=== PATIENT | female | born 1995 | race Caucasian/White ===

== ENCOUNTER 2023-11-25 21:19 | Outpatient (REF) | payer OTHER, SELFPAY | END 2023-11-25 21:20 | disposition home or self-care (01) | LOC: LAB 21:19 | PROVIDERS: Visit Provider Physician Assistant | DX: Z01.419 Encounter for gynecological examination (general) (routine) without abnormal findings (principal) | CPT/HCPCS: G0145 ==

== ENCOUNTER 2023-12-24 11:16 | Outpatient (REF) | payer OTHER, SELFPAY | END 2023-12-24 11:17 | disposition home or self-care (01) | LOC: LAB 11:16 | PROVIDERS: Visit Provider Obstetrics & Gynecology | DX: R87.612 Low grade squamous intraepithelial lesion on cytologic smear of cervix (LGSIL) (principal) | CPT/HCPCS: 88305 ==

== ENCOUNTER 2024-02-27 09:58 | Outpatient (OUT) | payer OTHER, SELFPAY ==
--- OUTSIDE RECORDS SUMMARY | 2024-02-27 10:06 | XMS_ITS | CCD ---
Author Organization [facility] Care Team Providers Care Blending Operator Name Role Phone JOSEFINA BUCKNER Admitting Unavailable JOSEFINA BUCKNER Attending Unavailable DR ENRIQUE CHAN Primary Care Unavailable JOSEFINA BUCKNER Consulting Unavailable JOSEFINA MARQUES Attending Unavailable OMERO VELASQUEZ Attending Unavailable OMERO VELASQUEZ Attending Unavailable Medications Current Medications Medication Drug Class(es) Dates Sig (Normalized) Sig (Original) cefdinir 300 mg oral capsule (1 source) Cephalosporin Antibacterial Start: 12-03-2023 take 300 mg by mouth twice daily Cefdinir Active 300 MG PO Twice daily 24 05December 03, 2023 12:00am Completed/Discontinued Medications Medication Drug Class(es) Dates Sig (Normalized) Sig (Original) penicillin v potassium 500 mg oral tablet (2 sources) Start: 11-22-2023 End: 12-03-2023 take 500 mg by mouth twice daily Penicillin V Potassium Discontinued 500 MG PO Twice daily 24 05November 22, 2023 12:00am December 03, 2023 3:35pm Problems Problem Classification Problem Date Documented Date Episodic/Chronic Immunizations and screening for infectious disease (1 source) Encounter for screening for human papillomavirus (HPV); Translations: [ENC SCREENING HUMAN PAPILLOMAVIRUS] Onset: 11-22-2022 Episodic Other screening for suspected conditions (not mental disorders or infectious disease) (4 sources) Encounter for screening for malignant neoplasm of cervix; Translations: [ENC SCREENING MALIG NEOPLASM CERV] Onset: 11-19-2022 Episodic Other upper respiratory infections (4 sources) Sore throat symptom; Translations: [Acute pharyngitis, unspecified] 11-22-2023 Episodic Results Test Name Value Interpretation Reference Range Facility No Panel InformationOrdered By: Jens Rodriguez on 12-03-2023 Quick Strep (POC) [facility] No Panel InformationOrdered By: Farrah Olivo on 04-19-2024 Quick Strep (POC) [facility] PAP ACOG PANEL 2: 21 to 29on 11-27-2022 . . Normal [facility] Comment on above: Performed By: #### [id number] #### [facility] [address] [place] [address] Dr. Darron Llamas Age Gdln ACOG Testing 22- Normal [facility] Comment on above: Performed By: #### [id number] #### [facility] [address] [place] [address] Dr. Darron Llamas DIAGNOSIS: Comment Normal [facility] Comment on above: Result Comment: NEGA TIVE FOR INTRAEPITHELIAL LESION OR MALIGNANCY. Performed By: #### [id number] #### [facility] [address] [place] [address] Dr. Darron Llamas Methodology: Comment Normal [facility] Comment on above: Result Comment: This liquid based ThinPrep(R) pap test was screened with the use of an image guided system. Performed By: #### [id number] #### [facility] [address] [place] [address] Dr. Darron Llamas Note: Comment [facility] Comment on above: Result Comment: The Pap smear is a screening test designed to aid in the detection of premalignant and malignant conditions of the uterine cervix. It is not a diagnostic procedure and should not be used as the sole means of detecting cervical cancer. Both false-positive and false-negative reports do occur. . Performed By: #### [id number] #### [facility] [address] [place] [address] Dr. Darron Llamas Performed by: Comment Normal [facility] Comment on above: Result Comment: Rei Hernandez Stock Preparation Supervisor (ASCP) Performed By: #### [id number] #### [facility] [address] [place] [address] Dr. Darron Llamas Reflex Criteria: Comment [facility] Comment on above: Result Comment: The HPV DNA reflex criteria were not met with this specimen result therefore, no HPV testing was performed. . Performed By: #### [id number] #### [facility] [address] [address] [address] Darron Llamas Specimen adequacy: Comment Normal [facility] Comment on above: Result Comment: Sati sfactory for evaluation. No endocervical component is identified. Performed By: #### [id number] #### [facility] [address] [place] [address] Dr. Darron Llaams Vital Signs Date Time Vital Sign Value Performing Clinician Faci lity 12-03-2023 15:37-0400 Body height 170.18 cm [facility] 12-03-2023 15:37-0400 Body mass index (BMI) [Ratio] 26.6 kg/m2 [facility] 12-03-2023 15:37-0400 Body temperature 98.3 [degF] [facility] 12-03-2023 15:37-0400 Body weight 77.11 kg [facility] 12-03-2023 15:37-0400 Diastolic blood pressure 86 mm[Hg] [facility] 12-03-2023 15:37-0400 Heart rate 80 /min [facility] 12-03-2023 15:37-0400 SaO2% (BldA) [Mass fraction] 98 % [facility] 12-03-2023 15:37-0400 Systolic blood pressure 131 mm[Hg] [facility] 11-22-2023 09:08-0400 Body height 170.18 cm [facility] 11-22-2023 09:08-0400 Body mass index (BMI) [Ratio] 24.3 kg/m2 [facility] 11-22-2023 09:08-0400 Body temperature 98.4 [degF] [facility] 11-22-2023 09:08-0400 Body weight 70.3 kg [facility] 11-22-2023 09:08-0400 Diastolic blood pressure 85 mm[Hg] [facility] 11-22-2023 09:08-0400 Heart rate 103 /min [facility] 11-22-2023 09:08-0400 SaO2% (BldA) [Mass fraction] 98 % [facility] 11-22-2023 09:08-0400 Systolic blood pressure 132 mm[Hg] [facility] Encounters Encounter Date Encounter Type Care Provider Facility Start: 02-12-2024 End: 02-12-2024 ambulatory OMERO EVA Not Available Start: 12-24-2023 End: 12-24-2023 ambulatory OMERO EVA Not Available Start: 12-03-2023 End: 12-03-2023 ambulatory [facility] Work Phone: Start: 12-03-2023 End: 12-03-2023 Patient encounter procedure [facility] Work Phone: Start: 11-25-2023 End: 11-25-2023 ambulatory JOSEFINA MARQUES Not Available Start: 11-22-2023 End: 11-22-2023 ambulatory [facility] Work Phone: Start: 11-22-2023 End: 11-22-2023 Patient encounter procedure [facility] Work Phone: Start: 11-19-2022 End: 11-19-2022 ambulatory JOSEFINA MARQUES . Facility:[facility]1 Procedures Date Procedure Procedure Detail Performing Clinician Start: 12-03-2023 Quick Strep (POC) Start: 11-22-2023 Quick Strep (POC) Payers Date Payer Category Payer Unknown [id number] 1995 Unknown [id number] 2.16.84 [id number] 1996 Unknown [id number] [id number] [id number] 1996 Unknown [id number] 2.16.84 [id number] 1996 Unknown [id number] 2.16.84 [id number] 1959 Unknown [id number] Social History Date Type Detail Facility [facility] Work Phone: Start: 1995 Sex Assigned At Female F [facility] Evaluation note Note Date & Type Note Facility Evaluation note Diagnosis Onset Date Strep pharyngitis noneactive [facility] Work Phone: Summary Purpose Family History No Family History Records FoundNo Family History Records Found Advance Directives No Advanced Directives Records Found Advance Directive Response Recorded Date/ Time Advance Directives No November 21 9:04am Chief Complaint and Reason for Visit Chief Complaint sore throat, fever Reason for Visit Strep pharyngitis Chief Complaint sore throat, fever sore throat Reason for Visit Strep pharyngitis Additional Source Comments INFORMATION SOURCE (unrecogn ized section and content) DATE CREATED AUTHOR 11/28/2022 [facility] DATE CREATED AUTHOR AUTHOR'S ORGANIZ ATION 02/18/2024 [facility] dical Specialists [facility] Care Teams (unrecognized sec tion and content) Team Status: Active Member Role Status Dates PHYSICIAN NO FAMILY Primary Care Provider Active Team Status: Inactive Member Role Status Dates Farrah Olivo APRN Attending Provider Active Sta rt: November 22, 2023 End: November 22, 2023 PHYSICIAN NO FAMILY Primary Care Provider Active Start: November 22, 2023 End: November 22, 2023 Team Status: Inactive Member Role Status Dates PHYSICIAN NO FAMILY Primary Care Provider Active Start: December 03, 2023 End: December 03, 2023 Jens Rodriguez PA-C Attending Provider Active St art: December 03, 2023 End: December 03, 2023 Goals (unrecognized section and content) Goals may be documented in a n alternate sectionGoals may be documented in an alternate section FOR RECORDS PERTAINING TO PATIENTS WHO ARE OR HAVE BEEN ENROLLED IN A CHEMICAL DEPENDENCY/SUBSTANCEABUSE PROGRAM, SOME INFORMATION MAY BE OMITTED. This clinical summary was aggregated from multiple sources. Caution should be exercised in using it in the provision of clinical care. This summary normalizes information from multiple sources, and as a consequence, information in this document may materially change the coding, format and clinical context of patient data. In addition, data may be omitted in some cases. CLINICAL DECISIONS SHOULD BE BASED ON THE PRIMARY CLINICAL RECORDS. [facility] [employer] [facility]. provides no warranty or guarantee of the accuracy or completeness of information in this document.
== END 2024-02-27 09:59 | disposition home or self-care (01) ==
PROVIDERS: PCP Family Medicine; Visit Provider Obstetrics & Gynecology
DX: Z01.818 Encounter for other preprocedural examination (principal); N87.1 Moderate cervical dysplasia; D06.9 Carcinoma in situ of cervix, unspecified; R87.613 High grade squamous intraepithelial lesion on cytologic smear of cervix (HGSIL)

== ENCOUNTER 2024-03-13 06:18 | Day surgery (SDC) | payer OTHER, SELFPAY ==
[2024-02-27 10:11] VITALS: BP 143/83; PULSE 92; TEMP 36.5; O2SAT 99; BMI 26.8
[2024-03-13] VITALS (8 sets, daily range): BP systolic 107–159; BP diastolic 54–94; PULSE 73–117; TEMP 36.2; O2SAT 97–100; BMI 26.9
--- OUTSIDE RECORDS SUMMARY | 2024-03-13 06:22 | XMS_ITS | CCD ---
Author Organization [facility] Care Team Providers Care Certified Driver Examiner Name Role Phone JOSEFINA BUCKNER Admitting Unavailable [...] Jens Rodriguez on 12-03-2023 Quick Strep (POC) [facility] No Panel InformationOrdered By: Farrah Olivo on 04-19-2024 Quick Strep (POC) [facility] PAP ACOG PANEL 2: 21 to 29on 11-27-2022 . . Normal [facility] Comment on above: Performed By: #### [id number] #### [facility] [address] [place] [address] Dr. Darron Llamas Age Gdln ACOG Testing 22- Normal [facility] Comment on above: Performed By: #### [id number] #### [facility] [address] [place] [address] Dr. Darron Llamas DIAGNOSIS: Comment Normal [facility] Comment on above: Result Comment: NEGA TIVE FOR INTRAEPITHELIAL LESION OR MALIGNANCY. Performed By: #### [id number] #### [facility] [address] [place] [address] Dr. Darron Llamas Methodology: Comment Normal [facility] Comment on above: Result Comment: This liquid based ThinPrep(R) pap test was screened with the use of an image guided system. Performed By: #### [id number] #### [facility] [address] [place] [address] Dr. Darron Llamas Note: Comment [facility] Comment on above: Result Comment: The Pap smear is a screening test designed to aid in the detection of premalignant and malignant conditions of the uterine cervix. It is not a diagnostic procedure and should not be used as the sole means of detecting cervical cancer. Both false-positive and false-negative reports do occur. . Performed By: #### [id number] #### [facility] [address] [place] [address] Dr. Darron Llamas Performed by: Comment Normal [facility] Comment on above: Result Comment: Rei Hernandez Children'S Counselor (ASCP) Performed By: #### [id number] #### [facility] [address] [place] [address] Dr. Darron Llamas Reflex Criteria: Comment [facility] Comment on above: Result Comment: The HPV DNA reflex criteria were not met with this specimen result therefore, no HPV testing was performed. . Performed By: #### [id number] #### [facility] [address] [address] [address] Darron Llamas Specimen adequacy: Comment Normal [facility] Comment on above: Result Comment: Sati sfactory for evaluation. No endocervical component is identified. Performed By: #### [id number] #### [facility] [address] [place] [address] Dr. Darron Llamas Vital Signs Date Time Vital Sign Value Performing Clinician Faci lity 12-03-2023 15:37-0400 Body height 170.18 cm [facility] 12-03-2023 15:37-0400 Body mass index (BMI) [Ratio] 26.6 kg/m2 [facility] 12-03-2023 15:37-0400 Body temperature 98.3 [degF] [facility] 12-03-2023 15:37-0400 Body weight 77.11 kg [facility] 12-03-2023 15:37-0400 Diastolic blood pressure 86 mm[Hg] [facility] 12-03-2023 15:37-0400 Heart rate 80 /min [facility] 12-03-2023 15:37-0400 SaO2% (BldA) [Mass fraction] 98 % [facility] 12-03-2023 15:37-0400 Systolic blood pressure 131 mm[Hg] [facility] 11-22-2023 09:08-0400 Body height 170.18 cm [facility] 11-22-2023 09:08-0400 Body mass index (BMI) [Ratio] 24.3 kg/m2 [facility] 11-22-2023 09:08-0400 Body temperature 98.4 [degF] [facility] 11-22-2023 09:08-0400 Body weight 70.3 kg [facility] 11-22-2023 09:08-0400 Diastolic blood pressure 85 mm[Hg] [facility] 11-22-2023 09:08-0400 Heart rate 103 /min [facility] 11-22-2023 09:08-0400 SaO2% (BldA) [Mass fraction] 98 % [facility] 11-22-2023 09:08-0400 Systolic blood pressure 132 mm[Hg] [facility] Encounters Encounter Date Encounter Type Care Provider Facility Start: 02-12-2024 End: 02-12-2024 ambulatory OMERO EVA Not Available Start: 12-24-2023 End: 12-24-2023 ambulatory OMERO EVA Not Available Start: 12-03-2023 End: 12-03-2023 ambulatory [facility] Work Phone: Start: 12-03-2023 End: 12-03-2023 Patient encounter procedure [facility] Work Phone: Start: 11-25-2023 End: 11-25-2023 ambulatory JOSEFINA MARQUES Not Available Start: 11-22-2023 End: 11-22-2023 ambulatory [facility] Work Phone: Start: 11-22-2023 End: 11-22-2023 Patient encounter procedure [facility] Work Phone: Start: 11-19-2022 End: 11-19-2022 ambulatory JOSEFINA MARQUES . Facility:[facility]1 Procedures Date Procedure Procedure Detail Performing Clinician Start: 12-03-2023 Quick Strep (POC) Start: 11-22-2023 Quick Strep (POC) Payers Date Payer Category Payer Unknown [id number] 1995 Unknown [id number] 2.16.84 [id number] 1996 Unknown [id number] 2.16.84 [id number] 1996 Unknown [id number] 2.16.84 [id number] 1996 Unknown [id number] 2.16.84 [id number] 1959 Unknown [id number] Social History Date Type Detail Facility [facility] Work Phone: Start: 1995 Sex Assigned At Female F [facility] Evaluation note Note Date & Type Note Facility Evaluation note Diagnosis Onset Date Strep pharyngitis noneactive [facility] Work Phone: Summary Purpose Family [...] DATE CREATED AUTHOR AUTHOR'S ORGANIZ ATION 02/18/2024 [facility] dical Specialists [facility] Care Teams (unrecognized sec tion and [...] BE BASED ON THE PRIMARY CLINICAL RECORDS. [facility] [facility]. provides no warranty or guarantee of the accuracy or completeness of information in this document.
[2024-03-13 06:34] LABS: Basophils Percent Auto 0.7 % (0.2-2.0); Eosinophils Percent Auto 0.4 % (0.9-7.0); Hematocrit 40.5 % (36.0-48.0); Hemoglobin 13.2 g/dL (12.0-16.0); Immature Granulocytes Abs Auto 0.01 10^3/uL (0.00-0.03); Immature Granulocytes Pct Auto 0.2 % (0.0-0.5); Lymphocytes Absolute Auto 2.9 10^3/uL (1.2-3.8); Lymphocytes Percent Auto 52.8 % (20.5-60.0); Mean Corpuscular HGB Conc 32.6 g/dL (29.9-35.2); Mean Corpuscular Hemoglobin 29.1 pg (26.7-34.0); Mean Corpuscular Volume 89.4 fL (81.0-99.0); Mean Platelet Volume 9.3 fL (9.5-13.5); Monocytes Absolute Auto 0.8 10^3/uL (0.3-0.8); Monocytes Percent Auto 15.3 % (1.7-12.0); Neutrophils Absolute Auto 1.7 10^3/uL (1.4-6.5); Neutrophils Percent Auto 30.6 % (43.0-75.0); Platelet Count 335 10^3/uL (150-450); Red Blood Count 4.53 10^6/uL (4.20-5.40); Red Cell Distribution Width 12.3 % (11.0-15.0); White Blood Count 5.4 10^3/uL (4.0-11.0)
[2024-03-13 07:02] LABS: HCG Quantitative <1 mIU/mL
--- NOTE | 2024-03-13 07:10 | PC.NURSE ---
2 IV attempts per sheet writer
[2024-03-13] MEDS: LACTATED RINGER'S SOLUTION 1,000 ML 50 ML IV (07:13)
[2024-03-13] MEDS: FAMOTIDINE/PF 20 MG/2 ML VIAL IV (07:35)
[2024-03-13] MEDS: SCOPOLAMINE 1 MG/3 DAYS TRANSDERM PATCH 1 PATCH TD (07:35)
[2024-03-13] MEDS: IODINE/POTASSIUM IODIDE 8 ML SOLUTION TOPICAL (08:05)
[2024-03-13] MEDS: FERRIC SUBSULFATE 8 ML SOLUTION TOPICAL (08:05)
--- NOTE | 2024-03-13 08:23 | PM.ONB ---
Brief Operative Note Date of procedure: 03/13/24 Pre-op diagnosis general: cervical dysplasia Post-op diagnosis: same as pre-op Procedure: NAME OF PROCEDURE: [leep ] PROCEDURE: Patient was taken back to the Operating Room where she was given general anesthesia without difficulty. She was then placed in the dorsal lithotomy position. She was then prepped and draped in the normal sterile fashion. A weighted speculum was placed into the patient's vagina. The anterior lip of the cervix was identified and grasped with a single-tooth tenaculum. The patient's cervix was then copiously irrigated using vinegar.? Then, a Lugol Solution was also placed onto the patient's cervix which demonstrated increased uptake of the Lugol solution at the [3? ] o?clock and [? 7] o?clock positions.? At that time, the LEEP portion of the procedure was performed, including both the [? ] o?clock and [? ] o?clock positions. The ectocervix was sent out to Pathology. The patient's cervix was then coagulated using suction cautery. Excellent hemostasis was assured.? Monsel Solution was then placed onto the patient's cervix to help maintain adequate hemostasis. All instruments were removed from the patient's vagina. The anterior lip of the cervix demonstrated excellent hemostasis.? The patient tolerated the procedure well. Sponge, lap, and needle counts were correct x 2. The patient was taken to Recovery Room in stable condition. Anesthesia: MAC Surgeon: Ha Melchor Estimated blood loss (mL): 5 Pathology: other (ectocervical tissue) Condition: stable Disposition: PACU Urinary Catheter Management Urinary Catheter Management Urethral: Cath placed during this visit: no
== END 2024-03-13 09:19 | disposition home or self-care (01) ==
PROVIDERS: PCP Family Medicine; Visit Provider Obstetrics & Gynecology
PROC: (CPT 940; principal; 2024-03-13 07:30)
DX: R87.613 High grade squamous intraepithelial lesion on cytologic smear of cervix (HGSIL) (principal); G47.33 Obstructive sleep apnea (adult) (pediatric)
CPT/HCPCS: 57522; 36415; 84702; 85025; 88307; 88341; 88342; J2250; J2704; J3010

== ENCOUNTER 2024-07-16 20:08 | Outpatient (REF) | payer OTHER, SELFPAY | END 2024-07-16 20:09 | disposition home or self-care (01) | LOC: LAB 20:08 | PROVIDERS: PCP Family Medicine; Visit Provider Physician Assistant | DX: R87.612 Low grade squamous intraepithelial lesion on cytologic smear of cervix (LGSIL) (principal); Z12.4 Encounter for screening for malignant neoplasm of cervix | CPT/HCPCS: 88175 ==

== ENCOUNTER 2024-11-30 12:03 | Outpatient (REF) | payer OTHER, SELFPAY ==
[2024-12-02 13:08] LABS: Age Gdln ACOG Testing Note (.); IGP, rfx Aptima HPV ASCU Note (.)
== END 2024-11-30 12:04 | disposition home or self-care (01) ==
LOC: LAB 12:03
PROVIDERS: PCP Family Medicine; Visit Provider Nurse Practitioner Family
DX: Z01.42 Encounter for cervical smear to confirm findings of recent normal smear following initial abnormal smear (principal); R87.619 Unspecified abnormal cytological findings in specimens from cervix uteri
CPT/HCPCS: 88175

== ENCOUNTER 2025-03-01 14:28 | Outpatient (OUT) | payer OTHER, SELFPAY ==
--- OUTSIDE RECORDS SUMMARY | 2025-03-01 13:20 | XMS_ITS | Encounter Summary ---
Author Organization [facility] Address [address] [place] [address] Care Team Providers Care Entry Level Sales Representative Name Role Phone Shaun Florez MD Primary Care Provider [phone] Reason for Visit * Reason Comments Routine Visit Encounter Details Date Type Department Care Team (Late st Contact Info) Description 03/01/2025 1:20 PM EDT Routine [facility] [place] [facility] [address] [place] [phone] Ha Melchor DO [address] [place], [place] [id number] Nausea and vomiting in ([facility]) (Primary Dx); 11 weeks gestation of ([facility]); First trimester ([facility]); H/O LEEP Social History Tobacco Use Types Packs/Day Years Used Date Smoking Tobacco: Never Assessed Estimated Date of Delivery Comme nts Yes 09/17/2025 Based on Ultraso und Sex and Gender Information Value Date Recorded Sex Assigned at Female 11/20/2023 10:16 AM EDT Legal Sex Female 8:01 PM EDT Gender Identity Not on file Sexual Orientation Not on file documented as of this encounter Last Filed Vital Signs Vital Sign Reading Time Taken Comments Blood Pressure 122/78 03/01/2025 1:26 PM EDT Pulse - - Temperature - - Respiratory Rate - - Oxygen Saturation - - Inhaled Oxygen Concentration - - Weight 77.1 kg (170 lb) 03/01/2025 1:26 PM EDT Height - - Body Mass Index 26.63 12/24/2023 2:50 PM EDT documented in this encounter Plan of Treatment Upcoming Encounters Date Type Department Care Team (Late st Contact Info) Description 03/16/2025 1:30 PM EDT Ancillary Procedure [facility] [place] [address] 03/29/2025 1:40 PM EDT Routine [facility] [place] [address] Ha Melchor, DO [address] [place] [address] 04/06/2025 8:00 AM EDT Ancillary Procedure [facility] [place] [phone] 12/06/2025 11:00 AM EDT Office Visit [facility] [place] [phone] Ha Meclhor, DO [address] [place] [address] Scheduled Orders Name Type Priority Associated Diagnoses Order Schedule POCT urinalysis dipstick manually resulted Point of Care Testing Routine 11 weeks gestation of ([facility]) Ordered: 03/01/2025 OB transvaginal Imaging Routine H/O LEEP 13 weeks, 16 weeks for 2 Occurrences starting 03/01/2025 until 06/01/2025 documented as of this encounter Visit Diagnoses Diagnosis Nausea and vomiting in ([facility])- Primary Unspecified vomiting of , unspecified as to episode of care 11 weeks gestation of ([facility]) First trimester ([facility]) state, incidental H/O LEEP documented in this encounter Care Teams Entry Level Sales Representative Relationship Specialty Start Date End Date Shaun Florez MD [address] [place] [address] PCP - General Family Medicine 11/25/23 documented as of this encounter
--- OUTSIDE RECORDS SUMMARY | 2025-03-01 14:31 | XMS_ITS | Encounter Summary ---
Author Organization [facility] Address [address] [place] [address] Care Team Providers Care Ergonomic Specialist Name Role Phone Shaun Florez MD Primary Care Provider [phone] Encounter Details Date Type Department Care Team (Late st Contact Info) Description 03/26/2024 Abstract [facility] [place] [address] Ha Melchor DO [address], [place] [address] Social History Tobacco Use Types Packs/Day Years Used Date Smoking Tobacco: Never Assessed Comments Unknown Sex and Gender Information Value Date Recorded Sex Assigned at Female 11/20/2023 10:16 AM EDT Legal Sex Female 8:01 PM EDT Gender Identity Not on file Sexual Orientation Not on file documented as of this encounter Plan of Treatment Upcoming Encounters Date Type Department Care Team (Late st Contact Info) Description 03/16/2025 1:30 PM EDT Ancillary Procedure [facility] [place] [address] 03/29/2025 1:40 PM EDT Routine [facility] [place] [address] Ha Melchor DO [address] [place], [place] [phone] 04/06/2025 8:00 AM EDT Ancillary Procedure [facility] [address] [place] [address] 12/06/2025 11:00 AM EDT Office Visit [facility] [address] [place] [phone] Ha Melchor DO [address] [place], [place] [phone] documented as of this encounter Visit Diagnoses Not on filedocumented in this encounter Care Teams Ergonomic Specialist Relationship Specialty Start Date End Date Shaun Florez MD [address] [facility] [place] [phone] PCP - General Family Medicine 11/25/23 documented as of this encounter
--- OUTSIDE RECORDS SUMMARY | 2025-03-01 14:31 | XMS_ITS | Encounter Summary ---
Author Organization [facility] Address [address] [facility] [place] [address] Care Team Providers Care Machining Engineer Name Role Phone Shaun Florez MD Primary Care Provider [phone] Encounter Details Date Type Department Care Team (Late st Contact Info) Description 03/26/2024 Abstract ANGY STEWART [facility] [place] [address] Ha Melchor DO [address], [place] [address] Social History Tobacco Use Types Packs/Day Years [...] 1:30 PM EDT Ancillary Procedure ANGY STEWART [facility] [place] [address] 03/29/2025 1:40 PM EDT Routine ANGY STEWART [facility] [place] [address] Ha Melchor DO [address], [place] [address] 04/06/2025 8:00 AM EDT Ancillary Procedure [facility] [address] [facility] [place] [address] 12/06/2025 11:00 AM EDT Office Visit [facility] [address] [facility] [place] [address] Ha Melchor DO [address] [facility] [address] [place], [place] [id number] documented as of this encounter Visit Diagnoses Not on filedocumented in this encounter Care Teams Machining Engineer Relationship Specialty Start Date End Date Shaun Florez MD [address] [facility] [place] [address] PCP - General Family Medicine 11/25/23 documented as of this encounter
--- OUTSIDE RECORDS SUMMARY | 2025-03-01 14:31 | XMS_ITS | Encounter Summary ---
Author Organization [facility] Address [address] [facility] [address] Care Team Providers Care Hand Candle Molder Name Role Phone Shaun Florez MD Primary Care Provider [phone] Encounter Details Date Type Department Care Team (Late st Contact Info) Description 12/09/2024 Orders Only [facility]GY [facility] [address] [facility] [place] [address] Tracy Silva LPN [address] [employer] [address] [place] [address] Social History Tobacco Use Types Packs/Day Years [...] 1:30 PM EDT Ancillary Procedure ANGY STEWART [address] [place] [address] 03/29/2025 1:40 PM EDT Routine ANGY STEWART [address] [facility] [place] [address] Ha Melchor DO [address] [facility] [address] [place], [place] [address] 04/06/2025 8:00 AM EDT Ancillary Procedure [facility] [address] [facility] [place] [address] 12/06/2025 11:00 AM EDT Office Visit [facility] [address] [facility] [place] [address] Ha Melchor DO [address] [facility] [address] [place], [place] [address] documented as of this encounter Procedures Procedure Name Priority Date/Time Associated Diagnosis Comments PAP SMEAR Routine 11/30/2024 12:00 AM EDT documented in this encounter Results * Pap Smear (11/30/2024 12:00 AM EDT) Swab Cervical swab / Unknown Ruiz Nurse [facility]oms Bcp Ob LAB CYTOLOGY ORDERABLES Final Result Performing Organization Address City/State/[facility] Co de Phone Number EXTERNAL LAB documented in this encounter Visit Diagnoses Not on filedocumented in this encounter Care Teams Hand Candle Molder Relationship Specialty Start Date End Date Shaun Florez MD [address] [facility] [place] [address] PCP - General Family Medicine 11/25/23 documented as of this encounter
--- OUTSIDE RECORDS SUMMARY | 2025-03-01 14:31 | XMS_ITS | Encounter Summary ---
Author Organization [facility] Address [address] [place] [address] Care Team Providers Care Campaign Advisor Name Role Phone Shaun Florez MD Primary Care Provider [phone] Encounter Details Date Type Department Care Team (Late st Contact Info) Description 07/31/2024 Orders Only ANGY STEWART [address] [place] [address] [place], [place] [address] [place] [address] Social History Tobacco Use Types Packs/Day Years [...] PM EDT Ancillary Procedure ANGY STEWART [address] [place] [phone] 03/29/2025 1:40 PM EDT Routine ANGY STEWART [address] [place] [address] Ha Melchor DO [address] [place], [place] [address] 04/06/2025 8:00 AM EDT Ancillary Procedure [facility] [address] [facility] [place] [address] 12/06/2025 11:00 AM EDT Office Visit [facility] [address] [facility] [place] [address] Ha Melchor DO [address] [facility] [place] [address] documented as of this encounter Procedures Procedure Name Priority Date/Time Associated Diagnosis Comments PAP SMEAR Routine 07/16/2024 12:00 AM EST documented in this encounter Results * Pap Smear (07/16/2024 12:00 AM EST) Swab Cervical swab / Unknown us Cindy VALLE[facility] LAB CYTOLOGY ORDERABLES Final Re sult EXTERNAL LAB documented in this encounter Visit Diagnoses Not on filedocumented in this encounter Care Teams Campaign Advisor Relationship Specialty Start Date End Date Shaun Florez MD [address] [facility] [place] [address] PCP - General Family Medicine 11/25/23 documented as of this encounter
--- OUTSIDE RECORDS SUMMARY | 2025-03-01 14:31 | XMS_ITS | Encounter Summary ---
Author Organization [facility] Address [address] [facility] [place] [address] Care Team Providers Care Simulation Analyst Name Role Phone Shaun Florez MD Primary Care Provider [phone] Encounter Details Date Type Department Care Team (Late st Contact Info) Description 03/31/2024 Abstract ANGY STEWART [facility] [place] [address] Ha Melchor DO [address], [place] [address] Social History Tobacco Use Types Packs/Day Years [...] 1:30 PM EDT Ancillary Procedure ANGY STEWART [facility] [place] [address] 03/29/2025 1:40 PM EDT Routine ANGY STEWART [facility] [place] [address] Ha Melchor DO [address] [place], [place] [address] 04/06/2025 8:00 AM EDT Ancillary Procedure [facility] [address] [facility] [place] [address] 12/06/2025 11:00 AM EDT Office Visit [facility] [address] [facility] [place] [address] Ha Melchor DO [address] [facility] [address] [place], [place] [address] documented as of this encounter Visit Diagnoses Not on filedocumented in this encounter Care Teams Simulation Analyst Relationship Specialty Start Date End Date Shaun Florez MD [address] [facility] [place] [address] PCP - General Family Medicine 11/25/23 documented as of this encounter
--- OUTSIDE RECORDS SUMMARY | 2025-03-01 14:31 | XMS_ITS | Encounter Summary ---
Author Organization [facility] Address [address] [place] [facility] [place] [address] Care Team Providers Care Direct Service Worker Name Role Phone Shaun Florez MD Primary Care Provider [phone] Encounter Details Date Type Department Care Team (Late st Contact Info) Description 03/23/2024 Abstract ANGY STEWART [facility] [place] [address] Ha Melchor DO [address], [place] [address] Social History Tobacco Use Types Packs/Day Years [...] 1:30 PM EDT Ancillary Procedure ANGY STEWART [facility] [place] [address] 03/29/2025 1:40 PM EDT Routine ANGY STEWART [facility] [place] [address] Ha Melchor DO [address] [place], [place] [address] 04/06/2025 8:00 AM EDT Ancillary Procedure [facility] [address] [facility] [place] [address] 12/06/2025 11:00 AM EDT Office Visit [facility] [address] [facility] [place] [address] Ha Melchor DO [address] [facility] [address] [place] [place], [place] [address] documented as of this encounter Visit Diagnoses Not on filedocumented in this encounter Care Teams Direct Service Worker Relationship Specialty Start Date End Date Shaun Florez MD [address] [facility] [place] [address] PCP - General Family Medicine 11/25/23 documented as of this encounter
--- OUTSIDE RECORDS SUMMARY | 2025-03-01 14:31 | XMS_ITS | Encounter Summary ---
Author Organization [facility] Address [address] [facility] [place] [address] Care Team Providers Care Four Corner Former Machine Operator Name Role Phone Shaun Florez MD Primary Care Provider [phone] Encounter Details Date Type Department Care Team (Late st Contact Info) Description 03/01/2025 Bamboo flowsheet ANGY STEWART [address] [facility] [place] [address] Ha Melchor DO [address], [place] [address] Social History Tobacco Use Types Packs/Day Years [...] Ancillary Procedure ANGY STEWART [address] [place] [address] 03/29/2025 1:40 PM EDT Routine ANGY STEWART [address] [place] [address] Ha Melchor DO [address] [place] [address] 04/06/2025 8:00 AM EDT Ancillary Procedure [facility] Mario STEWART [address] [place] [place] [address] 12/06/2025 11:00 AM EDT Office Visit [facility]OMS Mario STEWART [address] [place] [address] Ha Melchor DO [address] [facility] [place] [address] documented as of this encounter Visit Diagnoses Not on filedocumented in this encounter Care Teams Four Corner Former Machine Operator Relationship Specialty Start Date End Date Shaun Florez MD [address] [place] [facility] [place] [address] PCP - General Family Medicine 11/25/23 documented as of this encounter
--- OUTSIDE RECORDS SUMMARY | 2025-03-01 14:31 | XMS_ITS | Encounter Summary ---
Author Organization [facility] Address [address] [facility] [place] [address] Care Team Providers Care Sizing Machine Operator Name Role Phone Shaun Florez MD Primary Care Provider [phone] Encounter Details Date Type Department Care Team (Late st Contact Info) Description 03/31/2024 Abstract ANGY STEWART [facility] [place] [address] Ha Melchor DO [address], [place] [address] Social History Tobacco Use Types Packs/Day Years [...] 1:30 PM EDT Ancillary Procedure ANGY STEWART [facility] [place] [address] 03/29/2025 1:40 PM EDT Routine ANGY STEWART [facility] [place] [address] Ha Melchor DO [address] [place], [place] [address] 04/06/2025 8:00 AM EDT Ancillary Procedure [facility] [address] [facility] [place] [address] 12/06/2025 11:00 AM EDT Office Visit [facility] O[facility] [address] [facility] [place] [address] Ha Melchor DO [address] [facility] [address] [place], [place] [address] documented as of this encounter Visit Diagnoses Not on filedocumented in this encounter Care Teams Sizing Machine Operator Relationship Specialty Start Date End Date Shaun Florez MD [address] [facility] [place] [address] PCP - General Family Medicine 11/25/23 documented as of this encounter
--- OUTSIDE RECORDS SUMMARY | 2025-03-01 14:31 | XMS_ITS | Encounter Summary ---
Author Organization [facility] Address [address] [facility] [place] [address] Care Team Providers Care Physical Metallurgist Name Role Phone Shaun Florez MD Primary Care Provider [phone] Encounter Details Date Type Department Care Team (Late st Contact Info) Description 03/26/2024 Abstract ANGY STEWART [facility] [place] [address] Ha Melchor DO [address] [place], [place] [address] Social History Tobacco Use Types Packs/Day Years [...] 1:30 PM EDT Ancillary Procedure ANGY STEWART [facility] [place] [address] 03/29/2025 1:40 PM EDT Routine ANGY STEWART [facility] [place] [address] Ha Melchor DO [address] [place], [place] [address] 04/06/2025 8:00 AM EDT Ancillary Procedure [facility] [address] [facility] [place] [address] 12/06/2025 11:00 AM EDT Office Visit [facility] O[facility] [address] [facility] [place] [address] Ha Melchor DO [address] [facility] [address] [place], [place] [address] documented as of this encounter Visit Diagnoses Not on filedocumented in this encounter Care Teams Physical Metallurgist Relationship Specialty Start Date End Date Shaun Florez MD [address] [facility] [place] [address] PCP - General Family Medicine 11/25/23 documented as of this encounter
--- OUTSIDE RECORDS SUMMARY | 2025-03-01 14:31 | XMS_ITS | Encounter Summary ---
Author Organization [facility] Address [address] [facility] [place] [address] Care Team Providers Care Computer Operations Analyst Name Role Phone Shaun Florez MD Primary Care Provider [phone] Encounter Details Date Type Department Care Team (Late st Contact Info) Description 01/01/2024 Abstract ANGY STEWART [facility] [place] [address] Ha Melchor, DO [address], [place] [address] Social History Tobacco Use Types Packs/Day Years [...] 1:30 PM EDT Ancillary Procedure ANGY STEWART [facility] [place] [address] 03/29/2025 1:40 PM EDT Routine ANGY STEWART [facility] [place] [address] Ha Melchor DO [address] [place], [place] [address] 04/06/2025 8:00 AM EDT Ancillary Procedure [facility] [address] [facility] [place] [address] 12/06/2025 11:00 AM EDT Office Visit [facility] Mario OBGYN [address] [facility] [place] [address] Ha Melchor DO [address] [facility] [address] [place], [place] [address] documented as of this encounter Visit Diagnoses Not on filedocumented in this encounter Care Teams Computer Operations Analyst Relationship Specialty Start Date End Date Shaun Florez MD [address] [facility] [place] [address] PCP - General Family Medicine 11/25/23 documented as of this encounter
--- OUTSIDE RECORDS SUMMARY | 2025-03-01 14:31 | XMS_ITS | Clinical Summary ---
Author Organization [facility] Address [address] [facility] [place] [address] Care Team Providers Care Solid Waste Division Supervisor Name Role Phone Shaun Florez MD Primary Care Provider [phone] Allergies No known active allergies Medications MV-Min-Fe Fum-FA-DHA ( 1 PO) Take by mouth Active ondansetron (Zofran) 4 MG tabletIndicatio ns:Nausea and vomiting in ([facility]) Take 1 tablet (4 mg) by mouth every 6 (six) hours if needed for nausea or vomiting for up to 30 doses Take 1 tablet by mouth every 6 hours as needed for nausea. 30 tablet 03/01/2025 Active Encounters Date Type Department Care Team Description 03/01/2025 1:20 [place] [address] Ha Melchor DO Nausea and vomiting in ([facility]) (Primary Dx); 11 weeks gestation of ([facility]); First trimester ([facility]); H/O LEEP 03/01/2025 [place] [address] Ha Melchor DO 02/11/2025 11:00 AM [place] [address] Abnormal yolk sac during first trimester, single or unspecified fetus ([facility]) 01/28/2025 1:00 PM EDT Initial [facility] Mario [facility] [address] GA: [id number] 01/28/2025 12:30 PM EDT Ancillary Procedure [facility] Mario [facility] [address] Missed menses 12/09/2024 Orders Only NOMS Mario [place] [address] Tracy Silva LPN 11/30/2024 9:00 AM ED[place] [address] Kassi Mishra NP LGSIL of cervix of undetermined significance; HGSIL (high grade squamous intraepithelial lesion) on Pap smear of cervix 11/30/2024 Clinisync Result Encounter NOMS External Department Unsolicited Kassi Mishra NP 11/30/2024 Bamboo flowsheet NOMS Mario STEWART [address] [place] [address] [place] [address] Kassi Mishra NP from Last 3 Months Social History Tobacco Use Types Packs/Day Years Used Date Smoking Tobacco: Never Assessed Estimated Date of Delivery Comme nts Yes 09/17/2025 Based on Ultraso und Sex and Gender Information Value Date Recorded Sex Assigned at Female 11/20/2023 10:16 AM EDT Legal Sex Female 8:01 PM EDT Gender Identity Not on file Sexual Orientation Not on file Last Filed Vital Signs Vital Sign Reading Time Taken Comments Blood Pressure 122/78 03/01/2025 1:26 PM EDT Pulse - - Temperature - - Respiratory Rate - - Oxygen Saturation - - Inhaled Oxygen Concentration - - Weight 77.1 kg (170 lb) 03/01/2025 1:26 PM EDT Height 170.2 cm (5' 7 ) 12/24/2023 2:50 PM EDT Body Mass Index 26.63 12/24/2023 2:50 PM EDT Plan of Treatment Upcoming Encounters Date Type Department Care Team (Late st Contact Info) Description 03/16/2025 1:30 PM EDT Ancillary Procedure ANGY STEWART [address] [place], [place] [address] [address] 03/29/2025 1:40 PM EDT Routine NOM[facility] STEWART [address] [place], [place] [address] [address] Ha Melchor, DO [address] [place] [address] 04/06/2025 8:00 AM EDT Ancillary Procedure ANGY STEWART [facility] [place] [address] 12/06/2025 11:00 AM EDT Office Visit ANGY STEWART [facility] [place] [address] Ha Melchor, DO [address] [place] [address] Procedures Procedure Name Priority Date/Time Associated Diagnosis Comments OB TRANSVAGINAL Routine 02/11/2025 11 :34 AM EDT Abnormal yolk sac during first trimester, single or unspecified fetus ([facility]) POCT , URINE Routine 01/28/2025 1:45 PM EDT Missed menses POCT URINALYSIS DIPSTICK Routine 01/28/2025 1:43 PM EDT Missed menses OB TRANSVAGINAL Routine 01/28/2025 1: 16 PM EDT Missed menses POCT URINALYSIS DIPSTICK Routine 11/30/2024 9:29 AM EDT LGSIL of cervix of undetermined significance HGSIL (high grade squamous intraepithelial lesion) on Pap smear of cervix POCT , URINE Routine 11/30/2024 9:29 AM EDT LGSIL of cervix of undetermined significance HGSIL (high grade squamous intraepithelial lesion) on Pap smear of cervix IGP,APTIMA HPV,AGE GDLN Routine 11/30/2024 9:16 AM EDT PAP SMEAR Routine 11/30/2024 12:00 AM EDT from Last 3 Months Results * US OB transvaginal (02/11/2025 11:34 AM EDT) Only the most recent of2 resultswithin the time period is included. Anatomical Region Laterality Modality Body Ultrasound 02/11/2025 2:45 PM EDT Impressions 02/11/2025 3:11 PM EDT Findings consistent with a live intrauterine gestation, current sonographic age of 8 weeks and 5 days resulting in an estimated date of delivery of September 18, 2025. TRANSCRIBED BY: ELECTRONICALLY SIGNED BY: Luca Kaur MD Narrative 02/11/2025 3:11 PM EDT FINDINGS: Comparison January 28, 2025. A single intrauterine gestational sac is present. No subchorionic hemorrhage. A single pole is present. Normal heart rate at 187 beats per minute. Yolk sac also is seen. Current sonographic age is 8 weeks and 5 days based on the crown-rump length measurement of 2.1 cm (8 weeks and 5 days) and gestational sac measurement 3.9 cm (9 weeks and 1 day). Based on this age, current estimated date of delivery is September 18, 2025. No pelvic fluid or adnexal mass present. Cervix is closed. Procedure Note Luca Kaur MD - 02/11/2025 FINDINGS: Comparison January 28, 2025. A single intrauterine gestational sac is present. No subchorionichemorrhage. A single pole is present. Normal heart rate at187 beats per minute. Yolk sac also is seen. Current sonographic age is8 weeks and 5 days based on the crown-rump length measurement of 2.1 cm (8weeks and 5 days) and gestational sac measurement 3.9 cm (9 weeks and 1day). Based on this age, current estimated date of delivery is 2025. No pelvic fluid or adnexal mass present. Cervix is closed. IMPRESSION: Findings consistent with a live intrauterine gestation, currentsonographic age of 8 weeks and 5 days resulting in an estimated date ofdelivery of September 18, 2025. TRANSCRIBED BY: ELECTRONICALLY SIGNED BY: Luca Kaur MD us Ha Ruiz DO IMG OB US PROCEDURES Final Resul t * (ABNORMAL) POCT , urine manually resulted (01/28/2025 1:45 PM EDT) Only the most recent of2 resultswithin the time period is included. Preg Test, Ur Positive Negative Urine 01/28/2025 1:45 PM EDT us Ha Ruiz DO POINT OF CARE TEST ENTER/EDIT OR DERABLES Final Result * (ABNORMAL) POCT urinalysis dipstick manually resulted (01/28/2025 1:43 PM EDT) Only the most recent of2 resultswithin the time period is included. Color, UA Yellow Clarity, UA Clear Glucose, UA Negative Negative - 2000(110) ++++ mg/dL Bilirubin, UA Negative Negative - 4(70) +++ mg/dL Ketones, UA Negative Negative - 160(16) ++++ mg/dL Spec Grav, UA 1.015 1 - 1.03 Blood, UA Negative Negative - 50 Onel/mcL pH, UA 6.5 5 - 9 Protein, UA Negative Negative - 2000(20) ++++ mg/dL Urobilinogen, UA 0.2 0.2 - 12 mg/dL Leukocytes, UA Positive Negative - 500+++ Virgen/mcL Comment:small Nitrite, UA Negative Negative - Positive Urine 01/28/2025 1:43 PM EDT us Ha Ruiz DO POINT OF CARE TEST ENTER/EDIT OR DERABLES Final Result * IGP,APTIMA HPV,AGE GDLN (11/30/2024 9:16 AM EDT) AGE GDLN AC TESTING Note . [facility] Comment: TESTS RESULT FLAG UNITS REF RANGE LAB Clinician Provided Cytology Information Source.............Cervix;Endocervix No. of containers..01 ThinPrep Vial Age Tr AC Xochilt... FLAG LEGEND: L-Low Normal,H-High Normal,LL-Alert Low,HH-Alert High <-Panic Low,>-Panic High,A-Abnormal,AA-Critical Abnormal Performed at: 01 [facility] [address] [place] [address] Miriam Contreras MD, IGP, RFX APTIMA HPV ASCU Note . [facility] Comment: TESTS RESULT FLAG UNITS REF RANGE LAB DIAGNOSIS: 02 NEGATIVE FOR INTRAEPITHELIAL LESION OR MALIGNANCY. Specimen adequacy: 02 Satisfactory for evaluation. Endocervical and/or squamous metaplastic cells (endocervical component) are present. Performed by: 02 Yeimy Cottrell, Invoice Coder ([facility]) . 02 Note: Note 02 The Pap smear is a screening test designed to aid in the detection of premalignant and malignant conditions of the uterine cervix. It is not a diagnostic procedure and should not be used as the sole means of detecting cervical cancer. Both false-positive and false-negative reports do occur. Test Methodology: Note 02 This liquid based ThinPrep(R) pap test was screened with the use of an image guided system. . 02 The HPV DNA reflex criteria were not met with this specimen result therefore, no HPV testing was performed. FLAG LEGEND: L-Low Normal,H-High Normal,LL-Alert Low,HH-Alert High <-Panic Low,>-Panic High,A-Abnormal,AA-Critical Abnormal Performed at: [address] [address] Miriam Contreras MD, Performed at: =G - [facility] [address] [id number] Manager Social Responsibility: Miriam Contreras MD, Phone: [phone] Performed at: [facility] [address] [id number] Manager Social Responsibility: Miriam Contreras MD, Phone: [phone] 11/30/2024 9:16 AM EDT 11/30/2024 12:06 PM EDT Narrative [facility] - 12/02/2024 1:08 PM EDT BRUSH-SPATULA CERVIX ENDOCERVIX Kassi Mishra NP LAB BLOOD ORDERABLES Final Re sult [facility] * Pap Smear (11/30/2024 12:00 AM EDT) Swab Cervical swab / Unknown Ruiz Nurse Noms Bcp Ob LAB CYTOLOGY ORDERABLES Final Result EXTERNAL LAB from Last 3 Months Insurance [employer] Member Subscriber Plan / Payer (Ef fective 2023-Present) Name:Mervat Mendez Relation to Subscriber:Self Name:Mervat Mendez Payer ID:Not on file Type:Not on file Address: [place] [phone] [employer] Member Subscriber Plan / Payer (Ef fective 2023-Present) Name:Mervat Mendez Relation to Subscriber:Spouse Name:[id number] Date of :1995 (Home) Address: [address] [place] [address] Payer ID:Not on file Type:Not on file Address: [address] [place] [phone] Care Teams Solid Waste Division Supervisor Relationship Specialty Start Date End Date Shaun Florez MD [address] [place] [address] PCP - General Family Medicine 11/25/23
[2025-03-01 15:13] LABS: Cannabinoid Screen Urine NEGATIVE (NEGATIVE); Methamphetamines Screen Urine NEGATIVE (NEGATIVE); Tricyclic Antidepressant Urine NEGATIVE (NEGATIVE)
[2025-03-01 15:13] LABS: Hematocrit 40.9 % (36.0-48.0); Hemoglobin 14.1 g/dL (12.0-16.0); Immature Granulocytes Abs Auto 0.04 10^3/uL (0.00-0.03); Immature Granulocytes Pct Auto 0.4 % (0.0-0.5); Lymphocytes Absolute Auto 1.9 10^3/uL (1.2-3.8); Mean Corpuscular HGB Conc 34.5 g/dL (29.9-35.2); Mean Corpuscular Hemoglobin 30.4 pg (26.7-34.0); Mean Corpuscular Volume 88.1 fL (81.0-99.0); Platelet Count 346 10^3/uL (150-450); Red Blood Count 4.64 10^6/uL (4.20-5.40); White Blood Count 10.1 10^3/uL (4.0-11.0)
--- OUTSIDE RECORDS SUMMARY | 2025-03-01 17:43 | XMS_ITS | CCD ---
Author Organization [facility] Care Team Providers Care Digital Computer Systems Analyst Name Role Phone CINDY BUCKNER Admitting Unavailable CINDY BUCKNER Attending Unavailable HARMAN ., DR NUNEZ Primary Care Unavailable CINDY BUCKNER Consulting Unavailable Ha Melchor Attending Provider [phone] DO Ha Melchor Attending Provider [phone] Ha Melchor Admitting Unavailable Ha Melchor Attending Unavailable Ha Melchor Attending Unavailable Ha Melchor Admitting Unavailable Shaun Florez MD Primary Care Provider [phone] Shaun Florez MD Primary Care Provider [phone] KASSI MISHRA Attending Unavailable CINDY MARQUES Attending Unavailable CINDY MARQUES Attending Unavailable Medications Current Medications Medication Drug Class(es) Dates Sig (Normalized) Sig (Original) cefdinir 300 mg oral capsule (1 source) Cephalosporin Antibacterial Start: 12-03-2023 take 300 mg by mouth twice daily Cefdinir Active 300 MG PO Twice daily 24 05December 03, 2023 12:00am ondansetron 4 mg oral tablet (3 sources) Serotonin-3 Receptor Antagonist Start: 03-01-2025 take 1 tablet by mouth every six hours as needed for nausea and nausea, then take 1 tablet by mouth every six hours as needed for nausea and nausea ondansetron (Zofran) 4 MG tablet Indications: Nausea and vomiting in ([facility]) Take 1 tablet (4 mg) by mouth every 6 (six) hours if needed for nausea or vomiting for up to 30 doses Take 1 tablet by mouth every 6 hours as needed for nausea. 30 tablet 03/01/2025 Active MV-Min-Fe Fum-FA-DHA ( 1 PO) (5 sources) MV-Min-Fe Fum-FA-DHA ( 1 PO) Take by mouth Active Completed/Discontinued Medications Medication Drug Class(es) Dates Sig (Normalized) Sig (Original) penicillin v potassium 500 mg oral tablet (2 sources) Start: 11-22-2023 End: 12-03-2023 take 500 mg by mouth twice daily Penicillin V Potassium Discontinued 500 MG PO Twice daily 24 05November 22, 2023 12:00am December 03, 2023 3:35pm Problems Active Problems Problem Classification Problem Date Documented Date Episodic/Chronic Cancer of cervix (6 sources) Cervical intraepithelial neoplasia grade 1; Translations: [Low grade squamous intraepithelial lesion on cytologic smear of cervix (LGSIL)] 07-13-2024 Episodic Immunizations and screening for infectious disease (1 source) Encounter for screening for human papillomavirus (HPV); Translations: [ENC SCREENING HUMAN PAPILLOMAVIRUS] Onset: 11-22-2022 Episodic Menstrual disorders (1 source) Missed period; Translations: [Irregular menstruation, unspecified] 01-28-2025 Chronic Other complications of (2 sources) Vomiting of , unspecified; Translations: [Unspecified vomiting of , unspecified as to episode of care or not applicable] 03-01-2025 Episodic Other and delivery including normal (4 sources) ; Translations: [Encounter for supervision of normal , unspecified, unspecified trimester] 01-28-2025 Episodic Other screening for suspected conditions (not mental disorders or infectious disease) (5 sources) Encounter for screening for malignant neoplasm of cervix; Translations: [Patient encounter status] Onset: 11-19-2022 Episodic Other upper respiratory infections (4 sources) Sore throat symptom; Translations: [Acute pharyngitis, unspecified] 11-22-2023 Episodic Residual codes; unclassified (2 sources) Gestation period, 11 weeks; Translations: [11 weeks gestation of ] 03-01-2025 Episodic Residual codes; unclassified (2 sources) History of loop electrosurgical excision procedure; Translations: [Other specified postprocedural states] 03-01-2025 Episodic Past or Other Problems Problem Classification Problem Date Documented Da te Episodic/Chronic Other aftercare (2 sources) Surgical follow-up; Translations: [Encounter for follow-up examination after completed treatment for conditions other than malignant neoplasm] 03-30-2024 Episodic Results Test Name Value Interpretation Reference Range Facility [facility] DRUG SCREEN RAPID (URINE )on 03-01-2025 AMPHETAMINE SCREEN URINE Negative NEGATIVE [facility] BARBITURATES SCREEN URINE Negative NEGATIVE [facility] BENZODIAZEPINES SCREEN URINE Negative NEGATIVE [facility] BUPRENORPHINE SCREEN URINE Negative NEGATIVE [facility] Comment on above: DRUG CLASS TEST SYST EM CUT-OFF CONCENTRATIONS ARE FOLLOWS: AMP (Amphetamine): 500 ng/mL BAR (Barbiturates): 200 ng/mL BZO (Benzodiazepines): 150 ng/mL BUP (Buprenorphine): 10 ng/mL SHARMAINE (Cocaine): 150 ng/mL mAMP (Methamphetamine): 500 ng/mL MTD (Methadone): 200 ng/mL OPI (Opiates): 100 ng/mL OXY (Oxycodone): 100 ng/mL PCP (Phencyclidine): 25 ng/mL THC (Cannabinoids): 50 ng/mL TCA (Trycyclic Antidepressants): 300 ng/mL CANNABINOID SCREEN URINE Negative NEGATIVE [facility] COCAINE SCREEN URINE Negative NEGATIVE [facility] METHADONE SCREEN URINE Negative NEGATIVE NO [facility] METHAMPHETAMINES SCREEN URINE Negative NEGATIVE [facility] OPIATE SCREEN URINE Negative NEGATIVE [facility] OXYCODONE SCREEN URINE Negative NEGATIVE NO [facility] PHENCYCLIDINE SCREEN URINE Negative NEGATIVE [facility] TRICYCLIC ANTIDEPRESSANT URINE Negative NEGATIVE [facility] Urinalysis macro (dipstick) panel (U)on 03-01-2025 Bilirubin, UA Negative Negative - 4(70) +++ mg/dL [facility] Blood, UA Negative Negative - 50 Onel/mcL [facility] Clarity, UA Clear [facility] Color, UA Yellow [facility] Glucose, UA Negative Negative - 1999(110) ++++ mg/dL [facility] Interpretation and review of laboratory results Normal [facility] Ketones, UA Negative Negative - 160(16) ++++ mg/dL [facility] Leukocytes, UA Negative Negative - 500+++ Virgen/mcL [facility] Nitrite, UA Negative Negative - Positive [facility] pH, UA 6 5 - 9 [facility] Protein, UA Negative Negative - 1999(20) ++++ mg/dL [facility] Spec Grav, UA 1.02 1 - 1.03 [facility] Urobilinogen, UA 0.2 0.2 - 12 mg/dL [facility] OB TRANSVAGINALon 025 OB TRANSVAGINAL FINDINGS: Comparison January 28, 2025. A single [...] BY: ELECTRONICALLY SIGNED BY: Luca Kaur MD Normal Not Available Comment on above: Order Comment: US OB REEVAL ABN Estimated Date of Delivery: 09/17/25 Gestational Age as of 02/11/2025: 8w5d HCG ( test) Ql (U)o n 01-28-2025 Interpretation and review of laboratory results Abnormal [facility] Preg Test, Ur Positive Negative [facility] OB TRANSVAGINALon 025 US OB TRANSVAGINAL EXAM: US OB TRANSVAGINAL HISTORY: Dating. COMPARISON: None available. TECHNIQUE: Two-dimensional transvaginal grayscale ultrasound imaging of the pelvis was performed. Color Doppler evaluation of the ovaries was also performed. FINDINGS: The uterus demonstrates a normal homogeneous echotexture. The cervix measures 4.5 cm in length and the cervical os is closed. The right ovary is not visualized due to overlying bowel gas The left ovary measures 2.5 x 1.4 x 2.4 cm and demonstrates a normal echotexture. There is normal color Doppler flow. No fluid is present within the cul-de-sac. There is a single, live intrauterine gestation identified with a heart rate of 119 beats per minute and a crown-rump length measurement of 0.9 cm, correlating to a gestational age of 6 weeks 6 days (+/- 4 days). There is a 0.7 cm subchorionic hemorrhage visualized. A yolk sac is visualized and appears abnormal in shape. IMPRESSION: 1. Single, live intrauterine gestation 8 weeks, 1 days by LMP. Today's ultrasound measurements correlate with a gestational age of 6 weeks 6 days (+/- 4 days). BRIELLE by today's ultrasound is 09/17/2025. 2. Abnormal shaped yolk sac. A follow-up ultrasound in 2-4 weeks is recommended to monitor progression. 3. Normal color Doppler evaluation of the left ovary, the right ovary was not visualized. Interpreted by: Electronically signed by RUSSELL BARAJAS II, MD, PHD at 31-Jan-2025 10:03:24 PM [facility] Normal Not Available Comment on above: Order Comment: US OB TRANSVAGINAL No LMP recorded. Urinalysis macro (dipstick) panel (U)on 01-28-2025 Bilirubin, UA Negative Negative - 4(70) +++ mg/dL [facility] Blood, UA Negative Negative - 50 Onel/mcL [facility] Clarity, UA Clear [facility] Color, UA Yellow [facility] Glucose, UA Negative Negative - 1999(110) ++++ mg/dL [facility] Interpretation and review of laboratory results Abnormal [facility] Ketones, UA Negative Negative - 160(16) ++++ mg/dL [facility] Leukocytes, UA Positive Negative - 500+++ Virgen/mcL [facility] Comment on above: small Nitrite, UA Negative Negative - Positive [facility] pH, UA 6.5 5 - 9 [facility] Protein, UA Negative Negative - 1999(20) ++++ mg/dL [facility] Spec Grav, UA 1.015 1 - 1.03 [facility] Urobilinogen, UA 0.2 0.2 - 12 mg/dL [facility] IGP,APTIMA HPV,AGE GDLNon AGE GDLN ACOG TESTING Note . [facility] Comment on above: TESTS RESULT FLAG UN ITS REF RANGE LAB Clinician Provided Cytology Information Source.............Cervix;Endocervix No. of containers..01 ThinPrep Vial Age Algo ACOG Xochilt... FLAG LEGEND: L-Low Normal,H-High Normal,LL-Alert Low,HH-Alert High <-Panic Low,>-Panic High,A-Abnormal,AA-Critical Abnormal Performed at: 01 =G [facility] [place] [address] Miriam Contreras MD, IGP, RFX APTIMA HPV ASCU Note . [facility] Comment on above: TESTS RESULT FLAG UN ITS REF RANGE LAB DIAGNOSIS: 02 NEGATIVE FOR INTRAEPITHELIAL LESION OR MALIGNANCY. Specimen adequacy: 02 Satisfactory for evaluation. Endocervical and/or squamous metaplastic cells (endocervical component) are present. Performed by: Michael Cottrell, Nitrating Acid Mixer ([facility]) . 02 Note: Note 02 The [...] <-Panic Low,>-Panic High,A-Abnormal,AA-Critical Abnormal Performed at: [address] [id number] Miriam Contreras MD, Performed at: = - [address] [id number] [employer] Promoter [employer] Pet: Miriam Contreras MD, Phone: [phone] Performed at: [facility] [address] [id number] [employer] Pet: Miriam Contreras MD, Phone: [phone] BRUSH-SPATULA CERVIX ENDOCERVIX [facility] HCG ( test) Ql (U)o n 11-30-2024 Interpretation and review of laboratory results Normal [facility] Preg Test, Ur Negative Negative [facility] Urinalysis macro (dipstick) panel (U)on 11-30-2024 Bilirubin, UA Negative Negative - 4(70) +++ mg/dL [facility] Blood, UA Negative Negative - 50 Onel/mcL [facility] Clarity, UA Clear [facility] Color, UA Yellow [facility] Glucose, UA Negative Negative - 1999(110) ++++ mg/dL [facility] Interpretation and review of laboratory results Normal [facility] Ketones, UA Negative Negative - 160(16) ++++ mg/dL [facility] Leukocytes, UA Negative Negative - 500+++ Virgen/mcL [facility] Nitrite, UA Negative Negative - Positive [facility] pH, UA 6.5 5 - 9 [facility] Protein, UA Negative Negative - 1999(20) ++++ mg/dL [facility] Spec Grav, UA 1.015 1 - 1.03 [facility] Urobilinogen, UA 0.2 0.2 - 12 mg/dL [facility] PAP IG, APT HPV RFX 16/18,45 on 07-28-2024 HPV APTIMA Negative Negative [facility] Comment on above: This nucleic acid am plification test detects fourteen high- risk HPV types (16,18,31,33,35,39,45,51,52,56,58,59,66,68) without differentiation. Performed at: [facility] - [facility] [id number] [employer]: Miriam Contreras MD, Phone: [phone] Performed at: =G - [facility] [address], [place] [id number] [employer] Pet: Miriam Contreras MD, Phone: [phone] PAP IG (IMAGE GUIDED) Note . [facility] Comment on above: TESTS RESULT FLAG U NITS REF RANGE LAB Clinician Provided Cytology Information Source.............Cervix;Endocervix No. of containers..01 ThinPrep Vial DIAGNOSIS: 01 NEGATIVE FOR INTRAEPITHELIAL LESION OR MALIGNANCY. REACTIVE CELLULAR CHANGES AND/OR REPAIR ARE PRESENT. Specimen adequacy: 01 Satisfactory for evaluation. No endocervical component is identified. Performed by: 01 Sienna García, Stepdown Nurse (ASCP) Electronically si... 01 Kathryn Harvey MD, Pathologist . 01 Note: Note 01 The Pap smear is a screening test designed to aid in the detection of premalignant and malignant conditions of the uterine cervix. It is not a diagnostic procedure and should not be used as the sole means of detecting cervical cancer. Both false-positive and false-negative reports do occur. Test Methodology: Note 01 The Thin Prep(R) Chief Technology Officer was unable to read this specimen. Therefore a manual review was performed. HPV Genotype Reflex Note 01 Criteria not met, HPV Genotype not performed. FLAG LEGEND: L-Low Normal,H-High Normal,LL-Alert Low,HH-Alert High <-Panic Low,>-Panic High,A-Abnormal,AA-Critical Abnormal Performed at: [address] [facility] [address] [id number] Miriam Contreras MD, BRUSH-SPATULA CERVIX ENDOCERVIX [facility] Pathology Request for Lab Co rpon 03-13-2024 Pathology Request for Lab Cuong Normal [facility] Comment on above: Order Comment: PATHO LOGY DIRECTOR OF MANAGED CARE SPECIMEN Result Comment: See report. Scanned copy available in EMR. PERFORMED BY: [place] [address] PATHOLOGIST CANE PACKER SALVADOR HARDY M.D. Performed By: #### P ATH TO [facility] #### [address] Nishant 12-24-2023 L Specimen: [id number] Received: 12/26/23 Status: MINA Duran Num: [id number] Spec Type: Surgical Subm Dr: Ha Melchor Tissues: A Endocervix - Curettings (ECC) Procedures: HE/2, Gross/Micro L4 Age/ Patient Sex Location Account Attending Physician AndreaMervat 28/F [facility] [id number] Ha Melchor SPEC NUM: [id number] RECD: 12/26/23 STATUS: MINA DURAN NUM: [id number] ALBA: 12/24/23- SUBM DR: Ha Melchor ENTERED: 12/26/[address]: Mario,Lab SPEC TYPE: Surgical DEPT: [facility] ORDERED: HE/2, Gross/Micro L4 ORDERED: HE/2, Gross/Micro L4 Pathological Diagnosis Endocervical curetting: -HSIL, including at least 1 small (1 mm) and 1 larger (3 mm) strips of the GIOVANNI-2, to mostly GIOVANNI-3 types Clinical Information LSIL Gross Description Received in formalin, labeled with the patient's name, date of and ECC is an aggregate of minute cohen tissue admixed with mucus collectively measuring 1.1 x 0.9 x 0.1 cm, entirely submitted in A1. CPT Codes 17747 Specimen: [id number] Received: 12/26/23 Status: MINA Duran Num: [id number] Spec Type: Surgical Subm Dr: Ha Melchor Tissues: A Endocervix - Curettings (ECC) Procedures: FABBY/Wilson Hernandez/Toribio L4 Patient: AndreaMervat [id number] (Continued) Signed (signature on file) Jb-Marco A Llamas MD 12/28/23 1828 Normal [facility] No Panel InformationOrdered By: Jens Rodriguez on 12-03-2023 Quick Strep (POC) [facility] No Panel InformationOrdered By: Farrah Olivo on 11-22-2023 Quick Strep (POC) [facility] PAP ACOG PANEL 2: 21 to 29on 11-27-2022 . . Normal [facility] Comment on above: Performed By: #### [id number] #### [facility] [address] [place] [address] Dr. Darron Llamas Age Gdln ACOG Testing - [facility] Comment on above: Performed By: #### [id number] #### [facility] [address] [place] [address] Dr. Darron Llamas DIAGNOSIS: Comment [facility] Comment on above: Result Comment: NEGA TIVE FOR INTRAEPITHELIAL LESION OR MALIGNANCY. Performed By: #### [id number] #### [facility] [address] [place] [address] Dr. Darron Llamas Methodology: Comment [facility] Comment on above: Result Comment: This liquid based ThinPrep(R) pap test was screened with the use of an image guided system. Performed By: #### 4 [id number] #### [facility] [address] [place] [address] Dr. Darron Llamas Note: Comment [facility] Comment on above: Result Comment: The Pap smear is a screening test designed to aid in the detection of premalignant and malignant conditions of the uterine cervix. It is not a diagnostic procedure and should not be used as the sole means of detecting cervical cancer. Both false-positive and false-negative reports do occur. . Performed By: #### 4 [id number] #### [facility] [address] [place] [address] Dr. Darron Llamas Performed by: Comment Normal [facility] Comment on above: Result Comment: Rei Hernandez Stepdown Nurse (ASCP) Performed By: #### [id number] #### [facility] [address] [place] [address] Dr. Darron Llamas Reflex Criteria: Comment Normal [facility] Comment on above: Result Comment: The HPV DNA reflex criteria were not met with this specimen result therefore, no HPV testing was performed. . Performed By: #### 4 [id number] #### [facility] [address] [address] [address] Darron Llamas Specimen adequacy: Comment Normal [facility] Comment on above: Result Comment: Sati sfactory for evaluation. No endocervical component is identified. Performed By: #### [id number] #### [facility] [address] [address] [address] Darron Llamas Vital Signs Date Time Vital Sign Value Performing Clinician Facility 03-01-2025 13:26-0400 Body mass index (BMI) [Ratio] 26.63 kg/m2 Ha Ruiz DO Work Phone: [facility] 03-01-2025 13:26-0400 Body weight 77.11 kg Ha Ruiz DO Work Phone: [facility] 03-01-2025 13:26-0400 Diastolic blood pressure 78 mm[Hg] Ha Ruiz DO Work Phone: [facility] 03-01-2025 13:26-0400 Systolic blood pressure 122 mm[Hg] Ha Ruiz DO Work Phone: [facility] 01-28-2025 13:34-0400 Body mass index (BMI) [Ratio] 27.41 kg/m2 Ruiz Ob [facility] 01-28-2025 13:34-0400 Body weight 79.38 kg Ruiz Ob [facility] 01-28-2025 13:34-0400 Diastolic blood pressure 84 mm[Hg] Ruiz Ob [facility] 01-28-2025 13:34-0400 Systolic blood pressure 128 mm[Hg] Ruiz Ob [facility] 11-30-2024 09:23-0400 Body mass index (BMI) [Ratio] 29.26 kg/m2 Kassi Mishra MECHANIC SOUND TECHNICIAN Work Phone: [facility] 11-30-2024 09:23-0400 Body weight 84.73 kg Kassi Mishra MECHANIC SOUND TECHNICIAN Work Phone: [facility] 11-30-2024 09:23-0400 Diastolic blood pressure 78 mm[Hg] Kassi Mishra MECHANIC SOUND TECHNICIAN Work Phone: [facility] 11-30-2024 09:23-0400 Systolic blood pressure 120 mm[Hg] Kassi Mishra MECHANIC SOUND TECHNICIAN Work Phone: [facility] 07-16-2024 16:20-0500 Body mass index (BMI) [Ratio] 27.74 kg/m2 Cindy Porfirio PA Work Phone: [facility] 07-16-2024 16:20-0500 Body weight 80.34 kg Cindy Porfirio PA Work Phone: [facility] 07-16-2024 16:20-0500 Diastolic blood pressure 72 mm[Hg] Cindy Porfirio PA Work Phone: [facility] 07-16-2024 16:20-0500 Systolic blood pressure 120 mm[Hg] Cindy Porfirio PA Work Phone: [facility] 03-30-2024 15:55-0400 Body mass index (BMI) [Ratio] 26.85 kg/m2 Cindy Edgerton PA Work Phone: [facility] 03-30-2024 15:55-0400 Body weight 77.75 kg Cindy Edgerton PA Work Phone: [facility] 03-30-2024 15:55-0400 Diastolic blood pressure 70 mm[Hg] Cindy Porfirio PA Work Phone: [facility] 03-30-2024 15:55-0400 Systolic blood pressure 136 mm[Hg] Cindy Porfirio PA Work Phone: [facility] 12-03-2023 15:37-0400 Body height 170.18 cm [facility] 12-03-2023 15:37-0400 Body mass index (BMI) [Ratio] 26.6 kg/m2 [facility] 12-03-2023 15:37-0400 Body temperature 98.3 [degF] [facility] 12-03-2023 15:37-0400 Body weight 77.11 kg [facility] 12-03-2023 15:37-0400 Diastolic blood pressure 86 mm[Hg] [facility] 12-03-2023 15:37-0400 Heart rate 80 /min [facility] 12-03-2023 15:37-0400 SaO2% (BldA) [Mass fraction] 98 % [facility] 12-03-2023 15:37-0400 Systolic blood pressure 131 mm[Hg] [facility] 11-22-2023 09:08-0400 Body height 170.18 cm [facility] 11-22-2023 09:08-0400 Body mass index (BMI) [Ratio] 24.3 kg/m2 [facility] 11-22-2023 09:08-0400 Body temperature 98.4 [degF] [facility] 11-22-2023 09:08-0400 Body weight 70.3 kg [facility] 11-22-2023 09:08-0400 Diastolic blood pressure 85 mm[Hg] [facility] 11-22-2023 09:08-0400 Heart rate 103 /min [facility] 11-22-2023 09:08-0400 SaO2% (BldA) [Mass fraction] 98 % [facility] 11-22-2023 09:08-0400 Systolic blood pressure 132 mm[Hg] [facility] Encounters Encounter Date Encounter Type Care Provider Facility Start: 03-01-2025 End: 03-01-2025 Bamboo flowsheet Ha Melchor DO Work Phone: [facility] Start: 03-01-2025 End: 03-01-2025 Bamboo flowsheet Ha Melchor DO Work Phone: [facility] Start: 03-01-2025 End: 03-01-2025 [facility] Result Encounter Ha Melchor DO Work Phone: [facility] Department Unsolicited Start: 03-01-2025 End: 03-01-2025 flow sheet Ha Melchor DO Work Phone: [facility] Comment on above: Nausea and vomiting in ([facility]) (Primary Dx); 11 weeks gestation of ([facility]); First trimester ([facility]); H/O LEEP Start: 02-11-2025 End: 02-11-2025 ambulatory KASSI DANICA Not Available Start: 01-28-2025 End: 01-28-2025 Office outpatient visit 5 minutes Ruiz Nurse [facility] Comment on above: GA: 6w6d Start: 01-28-2025 End: 01-28-2025 ambulatory KASSI DANICA Not Available Start: 11-30-2024 End: 11-30-2024 Bamboo flowsheet Kassi Danica MECHANIC SOUND TECHNICIAN Work Phone: [facility] Start: 11-30-2024 End: 12-02-2024 Bamboo flowsheet Kassi Danica MECHANIC SOUND TECHNICIAN Work Phone: [facility] Start: 11-30-2024 End: 12-02-2024 [facility] Result Encounter Kassi Mishra MECHANIC SOUND TECHNICIAN Work Phone: [facility] External Department Unsolicited Start: 11-30-2024 End: 11-30-2024 ambulatory KASSI DANICA Not Available Start: 11-30-2024 End: 11-30-2024 Periodic preventive med est patient 18-39 yrs Kassi Danica MECHANIC SOUND TECHNICIAN Work Phone: [facility] Comment on above: LGSIL of cervix of u ndetermined significance; HGSIL (high grade squamous intraepithelial lesion) on Pap smear of cervix Start: 07-16-2024 End: 07-16-2024 ambulatory CINDY MARQUES Not Available Start: 07-16-2024 End: 07-16-2024 Patient encounter procedure Cindy VALLEJO Work Phone: [facility] Comment on above: LGSIL of cervix of u ndetermined significance; LGSIL on Pap smear of cervix; Encounter for repeat Papanicolaou smear of cervix Start: 07-16-2024 End: 07-16-2024 Bamboo flowsheet Cindy VALLEJO Work Phone: [facility] Start: 07-16-2024 End: 07-28-2024 Bamboo flowsheet Cindy VALLEJO Work Phone: [facility] Start: 07-16-2024 End: 07-28-2024 Clinisync Result Encounter Cindy VALLEJO Work Phone: [facility] External Department Unsolicited Start: 03-30-2024 End: 03-30-2024 Postop follow up visit related to original px Cindy VALLEJO Work Phone: [facility] Comment on above: Postoperative examin ation Start: 03-30-2024 End: 03-30-2024 ambulatory CINDY MARQUES Not Available Start: 03-30-2024 End: 03-30-2024 Bamboo flowsheet Cindy VALLEJO Work Phone: [facility] Start: 03-30-2024 End: 03-30-2024 Bamboo flowsheet Cindy VALLEJO Work Phone: [facility] Start: 03-13-2024 End: 03-13-2024 [facility]: Start: 03-13-2024 End: 03-13-2024 Departed Referred DO Ha Ruiz Work Phone: [facility] Start: 12-24-2023 End: 12-24-2023 [facility]: Start: 12-24-2023 End: 12-24-2023 Departed Referred Ha Ruiz Work Phone: [facility] Start: 12-03-2023 End: 12-03-2023 ambulatory [facility] Work Phone: Start: 12-03-2023 End: 12-03-2023 Patient encounter procedure [facility] Work Phone: Start: 11-22-2023 End: 11-22-2023 ambulatory [facility] Work Phone: Start: 11-22-2023 End: 11-22-2023 Patient encounter procedure [facility] Work Phone: Start: 11-19-2022 End: 11-19-2022 ambulatory CINDY MARQUES . Facility: Procedures Date Procedure Procedure Detail Performing Clinician Start: 03-01-2025 Urnls dip stick/tabl et rgnt non-auto w/o micrscp Ha Ruiz DO Work Phone: Start: 03-01-2025 [facility] DRUG SCREEN RAPI D (URINE) Ha Ruiz DO Work Phone: Start: 01-28-2025 End: 01-28-2025 Urnls dip stick/tablet rgnt non-auto w/o micrscp Ha Ruiz DO Work Phone: Start: 11-30-2024 Urnls dip stick/tabl et rgnt non-auto w/o micrscp Kassi Mishra MECHANIC SOUND TECHNICIAN Work Phone: Start: 11-30-2024 IGP,APTIMA HPV,AGE GDLN Kassi Mishra MECHANIC SOUND TECHNICIAN Work Phone: Start: 07-16-2024 PAP IG, APT HPV RFX 16/18,45 Cindy Marques PA Work Phone: Start: 12-03-2023 Quick Strep (POC) Start: 11-22-2023 Quick Strep (POC) Plan of Treatment Date Care Activity Detail Author Start: 12-06-2025 End: 12-06-2025 Patient encounter procedure [facility] Start: 04-07-2025 End: 04-07-2025 Patient encounter procedure 04/07/2025 1:40 PM EDT Procedure Visit [facility] [address] [place] [id number] Ha Melchor, DO [address] [place] [address] [facility] Start: 04-06-2025 End: 04-06-2025 Professional / ancillary services management 04/06/2025 8:00 AM EDT Ancillary Procedure [facility] [address] [place] [id number] [facility] Start: 03-29-2025 End: 03-29-2025 Patient encounter procedure 03/29/2025 1:40 PM EDT Routine [facility] [address] [place] [phone] Ha Melchor, DO [address] [place] [address] [facility] Start: 03-16-2025 End: 03-16-2025 Professional / ancillary services management 03/16/2025 1:30 PM EDT Ancillary Procedure [facility] [address] [place] [phone] [facility] Start: 03-01-2025 End: 03-01-2025 Patient encounter procedure [facility] Comment on above: Arrived Start: 01-28-2025 End: 01-28-2026 ABO/Rh ABO/Rh Lab Routine Missed menses , unspecified gestational age ([facility]) Expected: 01/28/2025 (Approximate), Expires: 01/28/2026 [facility] Comment on above: Expected: 01/28/2025 (Approximate), Expires: 01/28/2026 Start: 01-28-2025 End: 01-28-2026 Blood type and Indirect antibody screen panel - Blood Type and screen Lab Routine Missed menses , unspecified gestational age ([facility]) Expected: 01/28/2025 (Approximate), Expires: 01/28/2026 [facility] Work Phone: Comment on above: Expected: 01/28/2025 (Approximate), Expires: 01/28/2026 Start: 01-28-2025 End: 01-28-2026 Drugs of abuse panel - Urine by Screen method Rapid drug screen, urine Lab Routine , unspecified gestational age ([facility]) Encounter for supervision of normal first in first trimester ([facility]) Expected: 01/28/2025 (Approximate), Expires: 01/28/2026 [facility] Comment on above: Expected: 01/28/2025 (Approximate), Expires: 01/28/2026 Start: 11-30-2024 End: 11-30-2024 Patient encounter procedure 11/30/2024 9:00 AM EDT Office Visit [facility] [address] [place] [phone] Cindy Marques, PA [address] [place] [address] [facility] Start: 06-30-2024 End: 06-30-2024 Patient encounter procedure 06/30/2024 10:00 AM EST Procedure Visit [facility] [address] [place] [address] [place] [phone] Ha Melchor DO [address] [place] [address] [facility] Start: 03-30-2024 End: 03-30-2024 Patient encounter procedure 03/30/2024 3:40 PM EDT Office Visit [facility] [address] [place] [phone] Cindy Marques, PA [address] [place] [address] Arrived [facility] Comment on above: Arrived Start: 03-13-2024 [facility] Bacteria identified in Urine by Culture Urine culture Microbiology Routine Missed menses Ordered: 01/28/2025 [facility] Comment on above: Ordered: 01/28/2025 CBC W Auto Different ial panel - Blood CBC and differential Lab Routine Missed menses , unspecified gestational age ([facility]) Ordered: 01/28/2025 [facility] Comment on above: Ordered: 01/28/2025 Cytology Cervical or vaginal smear or scraping study Pap Smear Pathology and Cytology Routine LGSIL of cervix of undetermined significance Encounter for repeat Papanicolaou smear of cervix Ordered: 07/16/2024 [facility] Work Phone: Comment on above: Ordered: 07/16/2024 Cytology Cervical or vaginal smear or scraping study Pap Smear Pathology and Cytology Routine LGSIL of cervix of undetermined significance Ordered: 11/30/2024 [facility] Work Phone: Comment on above: Ordered: 11/30/2024 Hemoglobin A1c/Hemoglobin.total in Blood Hemoglobin A1c Lab Routine Missed menses , unspecified gestational age ([facility]) Ordered: 01/28/2025 [facility] Comment on above: Ordered: 01/28/2025 Hepatitis B virus surface Ag [Presence] in Serum or Plasma by Immunoassay Hepatitis B surface antigen Lab Routine Missed menses , unspecified gestational age ([facility]) Ordered: 01/28/2025 [facility] Comment on above: Ordered: 01/28/2025 Hepatitis C virus Ab [Presence] in Serum or Plasma by Immunoassay Hepatitis C antibody Lab Routine Missed menses , unspecified gestational age ([facility]) Ordered: 01/28/2025 [facility] Comment on above: Ordered: 01/28/2025 HIV-1/HIV-2 antigen/antibody combination immunoassay HIV-1 and HIV-2 antibodies Lab Routine Missed menses , unspecified gestational age ([facility]) Ordered: 01/28/2025 [facility] Comment on above: Ordered: 01/28/2025 Reagin Ab [Presence] in Serum by RPR RPR Lab Routine Missed menses , unspecified gestational age ([facility]) Ordered: 01/28/2025 [facility] Comment on above: Ordered: 01/28/2025 Rubella antibody, IgG Rubella an tibody, IgG Lab Routine Missed menses , unspecified gestational age ([facility]) Ordered: 01/28/2025 [facility] [employer] Comment on above: Ordered: 01/28/2025 End: 06-01-2025 US Pelvis transvaginal US OB transvaginal Imaging Routine H/O LEEP 13 weeks, 16 weeks for 2 Occurrences starting 03/01/2025 until 06/01/2025 [facility] Work Phone: Comment on above: 13 weeks, 16 weeks f or 2 Occurrences starting 03/01/2025 until 06/01/2025 Payers Date Payer Category Payer Self-pay 2023 Private Health Insurance [id number] 2023 Unknown [employer] [id number] 2023-Present [address] [place] [address] [id number] 2023 Unknown [id number] 2023 Unknown [id number] 1996 Unknown [id number] 1996 Unknown [id number] 1996 Unknown [id number] 1996 Unknown [id number] 1996 Unknown [id number] 1996 Unknown [id number] 259 1996 Unknown [id number] 1959 Unknown [id number] Social History Date Type Detail Facility Tobacco smoking status NHIS Unknown if ever smoked [facility] Work Phone: Start: 1996 End: 1996 Sex Assigned At Female [facility] Tobacco smoking status ARIS Tobacco smoking consumption unknown [facility] Gender identity Not on file [facility] Start: 12-25-2024 [facility] Clinical Notes 03-30-2024 to 03-01-2025 Kassi Mishra NP - 03/01/2025 1:20 PM EDRobert Wolf MA - 01/28/2025 1:00 PM Stephanie Silva LPN - 11/30/2024 9:00 AM YONI Ferrari - 07/16/2024 3:30 PM EST Note Date & Type Note Facility 03-01-2025 History of Presen t illness Narrative Reason for Appointment: Patient ID: Mervat Mendez is a 29 y.o. female who presents for Routine Visit Patient presents today for Return OB appointment. MEDICATIONS Current Outpatient Medications Medication Instructions MV-Min-Fe Fum-FA-DHA ( 1 PO) Take by mouth ALLERGIES No Known Allergies PROBLEMS Active Ambulatory Problems Diagnosis Date Noted No Active Ambulatory Problems Resolved Ambulatory Problems Diagnosis Date Noted No Resolved Ambulatory Problems No Additional Past Medical History HISTORY PAST MEDICAL HISTORY SOCIAL HISTORY No past medical history on file. Social History Tobacco Use Smoking status: Not on file Smokeless tobacco: Not on file Substance Use Topics Alcohol use: Not on file Drug use: Not on file FAMILY HISTORY No family history on file. SURGICAL HISTORY Past Surgical History: Procedure Laterality Date CERVICAL BIOPSY W/ LOOP ELECTRODE EXCISION 03/13/2024 REVIEW OF SYSTEMS Review of Systems: Review of Systems Constitutional: Negative. HENT: Negative. Eyes: Negative. Respiratory: Negative. Cardiovascular: Negative. Gastrointestinal: Negative. Genitourinary: Negative. Musculoskeletal: Negative. Skin: Negative. Neurological: Negative. All other systems reviewed and are negative. Hematological: Negative. Endocrine: Negative. Allergic/Immunologic: Negative. OBJECTIVE Objective: Physical Exam Constitutional: Appearance: Normal appearance. She is well-developed. Cardiovascular: Rate and Rhythm: Normal rate and regular rhythm. Pulmonary: Effort: Pulmonary effort is normal. Breath sounds: Normal breath sounds. Abdominal: General: Bowel sounds are normal. There is no distension. Palpations: Abdomen is soft. Tenderness: There is no abdominal tenderness. There is no guarding or rebound. Musculoskeletal: General: No swelling. Normal range of motion. Right lower leg: No edema. Left lower leg: No edema. Neurological: Mental Status: She is alert and oriented to person, place, and time. Skin: General: Skin is warm and dry. Psychiatric: Mood and Affect: Mood normal. Behavior: Behavior normal. Vitals and nursing note reviewed. Exam conducted with a acute care nursing assistant present. Vitals: Estimated body mass index is 26.63 kg/m as calculated from the following: Height as of 12/24/23: 5' 7 . Weight as of this encounter: 170 lb. BP: 122/78 Patient's last menstrual period was 12/02/2024. ASSESSMENT & PLAN (Z3A.11) 11 weeks gestation of ([facility]) Plan: POCT urinalysis dipstick manually resulted (Z34.91) First trimester ([facility]) (Z98.890) H/O LEEP Return OB: Patient presents today for a routine obstetrics appointment. Patient is currently 11w3d . Patient states she is doing well but has complaints of being tired due to current . Patient has verbalizes frequent movement. labor precautions was discussed/given and patient was instructed to perform kick counts three times a day. Orders Placed This Encounter Procedures POCT urinalysis dipstick manually resulted Follow Up: Patient is to return to office in 4 week for routine OB appointment. Documented by Kassi Mishra NP on behalf of: Ha Melchor DO documented in this encounter [facility] 01-28-2025 History of Presen t illness Narrative Reason for Appointment: Patient ID: Mervat Mendez is a 29 y.o. female who presents for Amenorrhea Patient presents today for a Nurse OB Intake appointment. Patient is 6w6d with a Estimated Date of Delivery: 09/17/25 OB History Para Term AB Living 1 SAB IAB Ectopic Multiple Live Births # Outcome Date GA Lbr Gil/2nd Weight Sex Type Anes PTL Lv 1 Current Current Medications: has a current medication list which includes the following prescription(s): mv-min-fe fum-fa-dha. Medical History: Active Ambulatory Problems Diagnosis Date Noted No Active Ambulatory Problems Resolved Ambulatory Problems Diagnosis Date Noted No Resolved Ambulatory Problems No Additional Past Medical History No family history on file. Social History Tobacco Use Smoking status: Not on file Smokeless tobacco: Not on file Substance Use Topics Alcohol use: Not on file Drug use: Not on file Past Surgical History: Procedure Laterality Date CERVICAL BIOPSY W/ LOOP ELECTRODE EXCISION 03/13/2024 No Known Allergies Vitals: Estimated body mass index is 27.41 kg/m as calculated from the following: Height as of 12/24/23: 5' 7 . Weight as of this encounter: 175 lb. BP: 128/84 Patient's last menstrual period was 12/02/2024. Assessment/Plan Diagnoses and all orders for this visit: Missed menses - Type and screen; Future - ABO/Rh; Future - CBC and differential - Hemoglobin A1c - RPR - Rubella antibody, IgG - Hepatitis B surface antigen - Hepatitis C antibody - HIV-1 and HIV-2 antibodies - Urine culture - POCT , urine manually resulted - POCT urinalysis dipstick manually resulted , unspecified gestational age ([facility]) - Type and screen; Future - ABO/Rh; Future - CBC and differential - Hemoglobin A1c - RPR - Rubella antibody, IgG - Hepatitis B surface antigen - Hepatitis C antibody - HIV-1 and HIV-2 antibodies - Rapid drug screen, urine; Future Encounter for supervision of normal first in first trimester ([facility]) - Rapid drug screen, urine; Future Nurse Note: OB Intake: Patient presents today for first OB visit. Patients history has been reviewed in great detail including any potential risks. Patient signed consent forms and patient desires testing in both trimesters. Patient currently has no complaints and has been advised to drink 6-8 glasses of water a day, eat no raw or undercooked meat, and [facility] Patient has also been advised to not change litter boxes and eat 6 small meals a day. Patient has been consulted regarding the do's and don'ts of . Patient was given labs and all questions and concerns were answered. Follow Up: Patient is to have labs drawn at directed and return to office for initial OB appointment with provider. Patient may call office as needed with any concerns or questions. Nurse Visit Completed by: Joana Wolf MA documented in this encounter [facility] 11-30-2024 History of Presen t illness Narrative Reason for Appointment: Patient ID: Mervat Mendez is a 29 y.o. female who presents for Abnormal Pap Smear Patient presents today for Repeat Pap. MEDICATIONS No current outpatient medications ALLERGIES No Known Allergies PROBLEMS Active Ambulatory Problems Diagnosis Date Noted No Active Ambulatory Problems Resolved Ambulatory Problems Diagnosis Date Noted No Resolved Ambulatory Problems No Additional Past Medical History HISTORY PAST MEDICAL HISTORY SOCIAL HISTORY History reviewed. No pertinent past medical history. Social History Tobacco Use Smoking status: Not on file Smokeless tobacco: Not on file Substance Use Topics Alcohol use: Not on file Drug use: Not on file FAMILY HISTORY No family history on file. SURGICAL HISTORY Past Surgical History: Procedure Laterality Date CERVICAL BIOPSY W/ LOOP ELECTRODE EXCISION 03/13/2024 REVIEW OF SYSTEMS Review of Systems: Review of Systems All other systems reviewed and are negative. OBJECTIVE Objective: Physical Exam Constitutional: Appearance: Normal appearance. She is well-developed. Genitourinary: Vulva normal. Cardiovascular: Rate and Rhythm: Normal rate and regular rhythm. Pulmonary: Effort: Pulmonary effort is normal. Breath sounds: Normal breath sounds. Abdominal: General: Bowel sounds are normal. There is no distension. Palpations: Abdomen is soft. Tenderness: There is no abdominal tenderness. There is no guarding or rebound. Musculoskeletal: General: No swelling. Normal range of motion. Right lower leg: No edema. Left lower leg: No edema. Neurological: Mental Status: She is alert and oriented to person, place, and time. Skin: General: Skin is warm and dry. Psychiatric: Mood and Affect: Mood normal. Behavior: Behavior normal. Vitals and nursing note reviewed. Exam conducted with a acute care nursing assistant present. Vitals: Estimated body mass index is 29.26 kg/m as calculated from the following: Height as of 12/24/23: 5' 7 . Weight as of this encounter: 186 lb 12.8 oz. BP: 120/78 Patient's last menstrual period was 11/01/2024. ASSESSMENT & PLAN ICD-10-CM 1. LGSIL of cervix of undetermined significance R87.612 Pap Smear POCT , urine manually resulted POCT urinalysis dipstick manually resulted 2. HGSIL (high grade squamous intraepithelial lesion) on Pap smear of cervix R87.613 POCT , urine manually resulted POCT urinalysis dipstick manually resulted Repeat Pap: Patient presents today for a repeat pap. Previous pap results were reviewed and noted to be Negative. Question regarding previous results were discussed. Repeat Pap was obtained without difficulty. Follow Up: Patient is to return to the office in 4 months for an annual exam. Documented by Tracy Silva LPN on behalf of: Kassi Mishra NP documented in this encounter [facility] 07-16-2024 History of Presen t illness Narrative Reason for Appointment: Patient ID: Mervat Mendez is a 28 y.o. female who presents for Well Women Visit Patient presents today for Acute Visit. MEDICATIONS No current outpatient medications ALLERGIES No Known Allergies PROBLEMS Active Ambulatory Problems Diagnosis Date Noted No Active Ambulatory Problems Resolved Ambulatory Problems Diagnosis Date Noted No Resolved Ambulatory Problems No Additional Past Medical History HISTORY PAST MEDICAL HISTORY SOCIAL HISTORY History reviewed. No pertinent past medical history. Social History Tobacco Use Smoking status: Not on file Smokeless tobacco: Not on file Substance Use Topics Alcohol use: Not on file Drug use: Not on file FAMILY HISTORY No family history on file. SURGICAL HISTORY Past Surgical History: Procedure Laterality Date CERVICAL BIOPSY W/ LOOP ELECTRODE EXCISION 03/13/2024 REVIEW OF SYSTEMS Review of Systems: Review of Systems Constitutional: Negative. HENT: Negative. Eyes: Negative. Respiratory: Negative. Cardiovascular: Negative. Gastrointestinal: Negative. Genitourinary: Negative. Musculoskeletal: Negative. Skin: Negative. Neurological: Negative. All other systems reviewed and are negative. Hematological: Negative. Endocrine: Negative. Allergic/Immunologic: Negative. OBJECTIVE Objective: Physical Exam Constitutional: Appearance: Normal appearance. She is normal weight. Genitourinary: Vaginal cuff intact. Right Adnexa: not tender and no mass present. Left Adnexa: not tender and no mass present. No cervical discharge. HENT: Head: Normocephalic. Cardiovascular: Rate and Rhythm: Normal rate. Pulses: Normal pulses. Pulmonary: Effort: Pulmonary effort is normal. Breath sounds: Normal breath sounds. Abdominal: Palpations: Abdomen is soft. Musculoskeletal: General: Normal range of motion. Neurological: General: No focal deficit present. Mental Status: She is alert and oriented to person, place, and time. Psychiatric: Mood and Affect: Mood normal. Behavior: Behavior normal. Thought Content: Thought content normal. Judgment: Judgment normal. Vitals and nursing note reviewed. Vitals: Estimated body mass index is 27.74 kg/m as calculated from the following: Height as of 12/24/23: 5' 7 . Weight as of this encounter: 177 lb 1.9 oz. BP: 120/72 No LMP recorded. ASSESSMENT & PLAN ICD-10-CM 1. LGSIL of cervix of undetermined significance R87.612 Pap Smear 2. LGSIL on Pap smear of cervix R87.612 3. Encounter for repeat Papanicolaou smear of cervix Z12.4 Pap Smear Patient presents for a repeat pap. Patient to follow up for repeat exam Documented by YONI Magdaleno on behalf of: YONI Magdaleno documented in this encounter [facility] 03-30-2024 History of Presen t illness Narrative Reason for Appointment: Patient ID: Mervat Mendez is a 28 y.o. female who presents for Post-op Visit Patient presents today for 1 Week Post Op Follow Up appointment. MEDICATIONS No current outpatient medications ALLERGIES No Known Allergies PROBLEMS Active Ambulatory Problems Diagnosis Date Noted No Active Ambulatory Problems Resolved Ambulatory Problems Diagnosis Date Noted No Resolved Ambulatory Problems No Additional Past Medical History HISTORY PAST MEDICAL HISTORY SOCIAL HISTORY History reviewed. No pertinent past medical history. Social History Tobacco Use Smoking status: Not on file Smokeless tobacco: Not on file Substance Use Topics Alcohol use: Not on file Drug use: Not on file FAMILY HISTORY No family history on file. SURGICAL HISTORY Past Surgical History: Procedure Laterality Date CERVICAL BIOPSY W/ LOOP ELECTRODE EXCISION 03/13/2024 REVIEW OF SYSTEMS Review of Systems: Review of Systems Constitutional: Negative. HENT: Negative. Eyes: Negative. Respiratory: Negative. Cardiovascular: Negative. Gastrointestinal: Negative. Genitourinary: Negative. Musculoskeletal: Negative. Skin: Negative. Neurological: Negative. All other systems reviewed and are negative. Hematological: Negative. Endocrine: Negative. Allergic/Immunologic: Negative. OBJECTIVE Objective: Physical Exam Constitutional: Appearance: Normal appearance. She is normal weight. HENT: Head: Normocephalic. Cardiovascular: Rate and Rhythm: Normal rate. Pulses: Normal pulses. Pulmonary: Effort: Pulmonary effort is normal. Breath sounds: Normal breath sounds. Abdominal: Palpations: Abdomen is soft. Musculoskeletal: General: Normal range of motion. Neurological: General: No focal deficit present. Mental Status: She is alert and oriented to person, place, and time. Psychiatric: Mood and Affect: Mood normal. Behavior: Behavior normal. Thought Content: Thought content normal. Judgment: Judgment normal. Vitals and nursing note reviewed. Vitals: Estimated body mass index is 26.85 kg/m as calculated from the following: Height as of 12/24/23: 5' 7 . Weight as of this encounter: 171 lb 6.4 oz. BP: 136/70 Patient's last menstrual period was 03/10/2024. ASSESSMENT & PLAN ICD-10-CM 1. Postoperative examination Z09 Pre Op: Patient presents today for a post Op appointment for a LEEP procedure. Pt is doing well. Pathology discussed with patient. Patient will return for repeat PAP in June and continue to do so every four months for one year. Documented by YONI Magdaleno on behalf of: YONI Magdaleno documented in this encounter [facility] Evaluation note Diagnosis Onset Date Strep pharyngitis noneactive [facility] Work Phone: Evaluation noteNo assessment information available [facility] Work Phone: Evaluation note* Diagnosis LGSIL of cervix of undetermined significance LGSIL on Pap smear of cervix Encounter for repeat Papanicolaou smear of cervix [facility] Diagnosis Postoperative examination Follow-up examination, following unspecified surgery [facility] Diagnosis LGSIL of cervix of undetermined significance HGSIL (high grade squamous intraepithelial lesion) on Pap smear of cervix [facility]* Diagnosis Missed menses , unspecified gestational age ([facility]) Encounter for supervision of normal first in first trimester ([facility]) [facility]* Diagnosis Nausea and vomiting in ([facility])- Primary Unspecified vomiting of , unspecified as to episode of care 11 weeks gestation of ([facility]) First trimester ([facility]) state, incidental H/O LEEP documented in this encounter [facility] Summary Purpose Family History No Family History Records FoundNo Family History Records FoundNo Family History Records FoundNo Family History Records Found Advance Directives Advance Directive Response Recorded Date/ Time Advance Directives No November 21 9:04am Chief Complaint and Reason for Visit Chief Complaint sore throat, fever Reason for Visit Strep pharyngitis Chief Complaint sore throat, fever sore throat Reason for Visit Strep pharyngitis Chief Complaint Unknown Chief Complaint Unknown Unknown Additional Source Comments INFORMATION SOURCE (unrecogn ized section and content) DATE CREATED AUTHOR 11/28/2022 [facility] DATE CREATED AUTHOR AUTHOR'S ORGANIZ ATION 03/20/2024 [facility] DATE CREATED AUTHOR AUTHOR'S ORGANIZ ATION 03/24/2024 [facility] DATE CREATED AUTHOR AUTHOR'S ORGANIZ ATION 02/15/2025 [facility] Care Teams (unrecognized sec tion and [...] December 03, 2023 End: December 03, 2023 Team Status: Inactive Member Role Status Dates Ha Melchor Attending Provider Active Start: Danita tsai 2023 End: December 24, 2023 Team Status: Inactive Member Role Status Dates Ha Melchor DO Attending Provider Active Start : December 24, 2023 End: December 24, 2023 Team Status: Inactive Member Role Status Dates Ha Melchor DO Attending Provider Active Start : March 13, 2024 End: March 13, 2024 Digital Computer Systems Analyst Relationship Specialty Start Date End Date Shaun Florez MD [address] [facility] [address] PCP - General Family Medicine 11/25/23 Digital Computer Systems Analyst Relationship Specialty Start Date End Date Shaun Florez MD [address] [place] [address] PCP - General Family Medicine 11/25/23 Digital Computer Systems Analyst Relationship Specialty Start Date End Date Shaun Florez MD [address] [facility] [address] PCP - General Family Medicine 11/25/23 Digital Computer Systems Analyst Relationship Specialty Start Date End Date Shaun Florez MD [address] [facility] [address] PCP - General Family Medicine 11/25/23 Digital Computer Systems Analyst Relationship Specialty Start Date End Date Shaun Florez MD [address] [facility] [address] PCP - General Family Medicine 11/25/23 Digital Computer Systems Analyst Relationship Specialty Start Date End Date Shaun Florez MD [address] [facility] [address] PCP - General Family Medicine 11/25/23 Digital Computer Systems Analyst Relationship Specialty Start Date End Date Shaun Florez MD [address] [facility] [place] [address] PCP - General Family Medicine 11/25/23 Digital Computer Systems Analyst Relationship Specialty Start Date End Date Shaun Florez MD [address] [facility] [address] PCP - General Family Medicine 11/25/23 Digital Computer Systems Analyst Relationship Specialty Start Date End Date Shaun Florez MD [address] [facility] [address] [phone] PCP - General Family Medicine 11/25/23 Goals (unrecognized section and content) Goals may be documented in a n alternate sectionGoals may be documented in an alternate sectionGoals may be documented in an alternate sectionGoals may be documented in an alternate section Reason for Visit (unrecogniz ed section and content) Reason Comments Well Women Visit Reason Comments Post-op Visit Reason Comments Abnormal Pap Smear Reason Comments Amenorrhea Reason Comments Routine Visit FOR RECORDS PERTAINING TO PATIENTS WHO ARE [...] BE BASED ON THE PRIMARY CLINICAL RECORDS. [facility] [employer] [facility]. provides no warranty or guarantee of the accuracy or completeness of information in this document.
[2025-03-02 04:11] LABS: Rubella Antibodies, IgG 2.30 index (Immune >0.99)
[2025-03-02 12:08] LABS: Rapid Plasma Reagin, Quant Non Reactive titer (NonRea<1:1)
== END 2025-03-01 14:29 | disposition home or self-care (01) ==
PROVIDERS: PCP Family Medicine; Visit Provider Obstetrics & Gynecology
DX: Z34.01 Encounter for supervision of normal first pregnancy, first trimester (principal); N92.6 Irregular menstruation, unspecified
CPT/HCPCS: 36415; 80307; 83036; 85025; 86592; 86762; 86803; 86850; 86900; 86901; 87086; 87340; 87389

== ENCOUNTER 2025-06-07 09:16 | Outpatient (OUT) | payer OTHER, SELFPAY ==
--- OUTSIDE RECORDS SUMMARY | 2025-05-24 07:00 | XMS_ITS | Encounter Summary ---
Author Organization [facility] Address [address] [place] [address] Care Team Providers Care Communications Technician Name Role Phone Shaun Florez MD Primary Care Provider [phone] Encounter Details DateTypeDepartmentCare Team (Latest Contact Info)Tmkkcitgeph77/20/2025 8:00 AM EDTAncillary Procedure [facility] [address] [place] [address] Encounter for follow-up ultrasound of anatomy ([facility]) Social History Tobacco UseTypesPacks/DayYears UsedDateSmoking Tobacco: Never Assessed Estimated Date of ZjcnnsndQttnfeyeHps94/13/2026Based on UltrasoundSex and Gender InformationValueDate RecordedSex Assigned at LdwolRtqiic50/17/2024 10:16 AM EDT Legal QbpKyxesc31/15/2023 8:01 PM EDTGender IdentityNot on fileSexual OrientationNot on filedocumented as of this encounter Plan of Treatment DateTypeDepartmentCare Team (Latest Contact Info)Uaadnrllnjg47/19/2025 1:50 PM ESTRoutine [facility] [address] [place] [address] Ha Melchor DO [address] [place], [place] [address] 12/06/2025 11:00 AM EDTOffice Visit [facility] [address] [place] [address] Ha Melchor, DO [address] [facility] [place] [address] documented as of this encounter Procedures Procedure NamePriorityDate/TimeAssociated DiagnosisCommentsUS OB LIMITED 1+ GULLCQWDqyhicv82/20/2025 8:38 AM EDT Encounter for follow-up ultrasound of anatomy ([facility]) documented in this encounter Results * US OB limited 1+ fetuses (05/24/2025 8:38 AM EDT)Anatomical RegionLaterality ModalityBodyUltrasoundSpecimen (Source)Anatomical Location / Laterality Collection Method / VolumeCollection TimeReceived Time05/24/2025 2:11 PM EDT Impressions 05/24/2025 2:41 PM EDT Single viable intrauterine , normal outflow tract evaluation appropriate for this age. TRANSCRIBED BY: ? ELECTRONICALLY SIGNED BY: Luca Kaur MD Narrative 05/24/2025 2:41 PM EDT FINDINGS: Single viable intrauterine with cephalic presentation, normal cardiac activity 144 bpm. Normal cardiac evaluation of the LVOT, RVOT seen on today's exam. Gestational age of 23 weeks and 3 days with an estimated delivery date of September 17, 2025. Procedure Note Luca Kaur MD - 05/24/2025 FINDINGS: Single viable intrauterine with cephalic presentation, normalcardiac activity 144 bpm. Normal cardiac evaluation of the LVOT, RVOT seen on today's exam. Gestational age of 23 weeks and 3 days with an estimated delivery date of September 17, 2025. IMPRESSION: Single viable intrauterine , normal outflow tract evaluationappropriate for this age. TRANSCRIBED BY: ELECTRONICALLY SIGNED BY: Luca Kaur MD Authorizing ProviderResult TypeResult StatusKassi Mishra NPIMG OB US PROCEDURESFinal Result documented in this encounter Visit Diagnoses Diagnosis Encounter for follow-up ultrasound of anatomy ([facility]) documented in this encounter Care Teams Team MemberRelationshipSpecialtyStart DateEnd Date Shaun Florez MD [address] [place] [address] PCP - GeneralFamily Medicine11/25/23documented as of this encounter
--- OUTSIDE RECORDS SUMMARY | 2025-05-24 07:40 | XMS_ITS | Encounter Summary ---
Author Organization [facility] Address [address] [place] [address] Care Team Providers Care Theatrical Rigger Name Role Phone Shaun Florez MD Primary Care Provider [phone] Reason for Visit * ReasonCommentsRoutine Visit Encounter Details DateTypeDepartmentCare Team (Latest Contact Info)Msehjnbfczr09/20/2025 8:40 AM EDTRoutine [facility] [address] [facility] [place] [address] Ha Melchor DO [address] [facility] [address] [place], [place] [phone] Second trimester ([facility]); 23 weeks gestation of ([facility]); Diabetes mellitus screening Social History Tobacco UseTypesPacks/DayYears UsedDateSmoking Tobacco: Never Assessed Estimated Date of ZimvqazfTtrfbqzcSyi98/13/2026Based on UltrasoundSex and Gender InformationValueDate RecordedSex Assigned at SefroTaybdd04/17/2024 10:16 AM EDT Legal ZlfIteddz36/15/2023 8:01 PM EDTGender IdentityNot on fileSexual OrientationNot on filedocumented as of this encounter Last Filed Vital Signs Vital SignReadingTime TakenCommentsBlood Ujbnhnjq949/7805/24/2025 8:55 AM EDT Pulse--Temperature--Respiratory Rate--Oxygen Saturation--Inhaled Oxygen Concentration--Cdreaa86.1 kg (189 lb 12.8 oz)05/24/2025 8:55 AM EDTHeight--Body Mass Index29.7305 2:50 PM EDTdocumented in this encounter Progress Notes * Keri De La TorreANTONIO espinal - 05/24/2025 8:40 AM EDT Reason for Appointment: Patient ID: Mervat Mendez is a 29 y.o. female who presents for Routine Visit Patient presents today for Return OB appointment. MEDICATIONS Current Outpatient Medications Medication Instructions ondansetron (ZOFRAN) 4 mg, Oral, Every 6 hours PRN, Take 1 tablet by mouth every 6 hours as needed for nausea. MV-Min-Fe Fum-FA-DHA ( 1 PO) Take by [...] nursing note reviewed. Exam conducted with a hoop puncher present. Vitals: Estimated body mass index is 29.73 kg/m?? as calculated from the following: Height as of 12/24/23: 5' 7 . Weight as of this encounter: 189 lb 12.8 oz. BP: 110/78 Patient's last menstrual period was 12/02/2024. Assessment/Plan ICD-10-CM 1. Second trimester ([facility]) Z34.92 CBC and differential 2. 23 weeks gestation of ([facility]) Z3A.23 POCT urinalysis dipstick manually resulted 3. Diabetes mellitus screening Z13.1 CBC Glucose tolerance, 1 hour CBC Glucose tolerance, 1 hour Patient presents today for a routine obstetrics appointment. Patient is currently 23w3d with a Estimated Date of Delivery: 09/17/25. Patient had follow up ultrasound to clear anatomy. Patientto return to clinic in 4 weeks. Patient is going to be flying this weekend and precautions given. Patient to have vaginal cultures at next appointment. Growth scan around 30 weeks. Documented by Keri Canada LPN on behalf of: Ha Melchor DO documented in this encounter Plan of Treatment DateTypeDepartmentCare Team (Latest Contact Info)Nwsllkjxopo13/19/2025 1:50 PM ESTRoutine [facility] [address] [place] [address] [place] [address] Ha Melchor DO [address] [facility] [place] [address] 12/06/2025 11:00 AM EDTOffice Visit [facility] [address] [place] [address] Ha Melchor DO [address] [place] [address] NameTypePriorityAssociated DiagnosesOrder ScheduleCBCLabRoutine Diabetes mellitus screening Expected: 05/24/2025 (Approximate), Expires: 05/24/2026Glucose tolerance, 1 hour LabRoutine Diabetes mellitus screening Expected: 05/24/2025 (Approximate), Expires: 05/24/2026BC and differentialLab Routine Second trimester ([facility]) Ordered: 05/24/2025documented as of this encounter Procedures Procedure NamePriorityDate/TimeAssociated DiagnosisCommentsPOCT URINALYSIS ALKZACSZLutivgw85/20/2025 9:03 AM EDT 23 weeks gestation of ([facility]) documented in this encounter Results * (ABNORMAL) POCT urinalysis dipstick manually resulted (05/24/2025 9:03 AM EDT) ComponentValueRef RangeTest MethodAnalysis TimePerformed AtPathologist SignatureColor, UAYellowClarity, UAClearGlucose, UANegativeNegative - 2000(110) ++++ mg/dLBilirubin, UANegativeNegative - 4(70) +++ mg/dLKetones, UA NegativeNegative - 160(16) ++++ mg/dLSpec Grav, UA1.0101 - 1.03Blood, UA NegativeNegative - 50 Onel/mcLpH, UA7.05 - 9Protein, UANegativeNegative - 2000(20) ++++ mg/dLUrobilinogen, UA2.00.2 - 12 mg/dLLeukocytes, UA2+Negative - 500+++ Virgen/mcLNitrite, UANegativeNegative - PositiveSpecimen (Source) Anatomical Location / LateralityCollection Method / VolumeCollection Time Received HsofGslcd13/20/2025 9:03 AM EDT Narrative Authorizing ProviderResult TypeResult StatusCorey Ruiz DOPOINT OF CARE TEST ENTER/EDIT ORDERABLESFinal Result documented in this encounter Visit Diagnoses Diagnosis Second trimester ([facility]) state, incidental 23 weeks gestation of ([facility]) Diabetes mellitus screening Screening for diabetes mellitus documented in this encounter Care Teams Team MemberRelationshipSpecialtyStart DateEnd Date Shaun Florez MD [address] [place] [address] PCP - GeneralFamily Medicine11/25/23documented as of this encounter
--- OUTSIDE RECORDS SUMMARY | 2025-06-07 09:21 | XMS_ITS | Clinical Summary ---
Author Organization [facility] Address [address] [place] [address] Care Team Providers Care Wall Cleaner Name Role Phone Shaun Florez MD Primary Care Provider [phone] Allergies No known active allergies Medications MedicationSigDispense QuantityRefillsLast FilledStart DateEnd DateStatus MV-Min-Fe Fum-FA-DHA ( 1 PO) Take by mouthActive ondansetron (Zofran) 4 MG tablet Indications:Nausea and vomiting in ([facility])Take 1 tablet (4 mg) by mouth every 6 (six) hours if needed for nausea or vomiting for up to 30 doses Take 1 tablet by mouth every 6 hours as needed for nausea. 30 tablet 5Active Encounters DateTypeDepartmentCare MoxbLyetfssruwd78/20/2025 8:40 [place] [address] Ha Melchor DO Second trimester ([facility]); 23 weeks gestation of ([facility]); Diabetes mellitus ikjztkafp91/20/2025 8:00 [place] [address] Encounter for follow-up ultrasound of anatomy ([facility])05/03/2025 8:00 [place] [address] Screening, , for anatomic survey ([facility])04/26/2025 3:40 PM ED[place] [address] Ha Melchor DO Second trimester ([facility]); 19 weeks gestation of ([facility])04/26/2025amboo [place] [address] Ha Melchor, 04/06/2025 8:00 AM EDTAncillary [place] [address] H/O LEEP03/29/2025 1:40 [place] [address] Ha Melchor DO Screening, , for anatomic survey ([facility]) (Primary Dx); Second trimester ([facility]); 15 weeks gestation of ([facility]); Need for maternal serum alpha-protein (MSAFP) screening ([facility])03/29/2025 Bamboo flowsheet [facility] [place] [address] Ha Melchor DO 03/26/20[place] [address] Ha Melchor DO 03/16/2025 1:30 PM EDTAncillary [place] [phone] H/O LEEPfrom Last 3 Months Social History Tobacco UseTypesPacks/DayYears UsedDateSmoking Tobacco: Never Assessed Estimated Date of MgrmrobjHovvjfvoAyo31/13/2026Based on UltrasoundSex and Gender InformationValueDate RecordedSex Assigned at PrwqgQlziso16/17/2024 10:16 AM EDT Legal VzdJvnrya36/15/2023 8:01 PM EDTGender IdentityNot on fileSexual OrientationNot on file Last Filed Vital Signs Vital SignReadingTime TakenCommentsBlood Nwfnfxuc689/7805/24/2025 8:55 AM EDT Pulse--Temperature--Respiratory Rate--Oxygen Saturation--Inhaled Oxygen Concentration--Usnkno74.1 kg (189 lb 12.8 oz)05/24/2025 8:55 AM GOYZgzdgt177.2 cm (5' 7 )12/24/2023 2:50 PM EDTBody Mass Index29.7312/24/2023 2:50 PM EDT Plan of Treatment DateTypeDepartmentCare Team (Latest Contact Info)Dmulrdhmylg65/19/2025 1:50 PM ESTRoutine [facility] [address] [facility] [place] [address] Ha Melchor, [address] [facility] [place] [address] 12/06/2025 11:00 AM EDTOffice Visit [facility] [address] [facility] [address] [place] [address] Ha Melchor, DO [address] [facility] [place] [address] Procedures Procedure NamePriorityDate/TimeAssociated DiagnosisCommentsPOCT URINALYSIS VRVDSPZMShesqoa16/20/2025 9:03 AM EDT 23 weeks gestation of ([facility]) US OB LIMITED 1+ WDVHSVDVeences40/20/2025 8:38 AM EDT Encounter for follow-up ultrasound of anatomy ([facility]) US OB 14+ WEEKS ANATOMY TAKPMzdfvrf71/29/2025 9:07 AM EDT Screening, , for anatomic survey ([facility]) POCT URINALYSIS WDYMCVSMGrholcw53/22/2025 4:06 PM EDT Second trimester ([facility]) US OB HTMMCITQWSMTTrkkciw07/02/2025 8:34 AM EDT H/O LEEP POCT URINALYSIS TCKWREMWQvlyuzw71/25/2025 2:12 PM EDT Second trimester ([facility]) CULTURE, URINE, IJGTNLJYtmffwq77/21/2025 2:04 PM EDT Missed menses US OB GLAARMXIAXRGOqdlnfg80/12/2025 2:02 PM EDT H/O LEEP from Last 3 Months Results * (ABNORMAL) POCT urinalysis dipstick manually resulted (05/24/2025 9:03 AM EDT) Only the most recent of3 resultswithin the time period is included. ComponentValueRef RangeTest MethodAnalysis TimePerformed AtPathologist Signature Color, UAYellowClarity, UAClearGlucose, UANegativeNegative - 2000(110) ++++ mg/dLBilirubin, UANegativeNegative - 4(70) +++ mg/dLKetones, UANegativeNegative - 160(16) ++++ mg/dLSpec Grav, UA1.0101 - 1.03Blood, UANegativeNegative - 50 Onel/mcLpH, UA7.05 - 9Protein, UANegativeNegative - 2000(20) ++++ mg/dL Urobilinogen, UA2.00.2 - 12 mg/dLLeukocytes, UA2+Negative - 500+++ Virgen/mcL Nitrite, UANegativeNegative - PositiveSpecimen (Source)Anatomical Location / LateralityCollection Method / VolumeCollection TimeReceived QfruKfepr13/20/2025 9:03 AM EDT Narrative Authorizing ProviderResult TypeResult StatusCorey Ruiz DOPOINT OF CARE TEST ENTER/EDIT ORDERABLESFinal Result * US OB limited 1+ fetuses (05/24/2025 [...] StatusKassi Mishra NPIMG OB US PROCEDURESFinal Result * US OB 14+ weeks anatomy scan (05/03/2025 9:07 AM EDT)Anatomical Region LateralityModalityBodyUltrasoundSpecimen (Source)Anatomical Location / LateralityCollection Method / VolumeCollection TimeReceived Time05/03/2025 12:57 PM EDT Impressions 05/03/2025 1:37 PM EDT 1. Single live intrauterine , current sonographic age of 21 weeks, 0 days, with an estimated date of delivery September 13, 2025. 2. ??Suboptimal imaging RVOT/LVOT. TRANSCRIBED BY: ? ELECTRONICALLY SIGNED BY: Luca Kaur MD Narrative 05/03/2025 1:37 PM EDT FINDINGS: A single, live intrauterine is present with normal cardiac rate of 141 ??beats per minute. Normal activity . Morphology is grossly normal with the exception of suboptimal visualization of the RVOT/LVOT. ??The cervix is long and closed, 5.2 cm. ??The placenta posterior ??Grade 1, the inferior aspect of the placenta 2.9 cm from the closed cervical os. The current sonographic age is 21 weeks and ??0 days, date of delivery September 13, 2025. ??The current estimated weightis 393 grams ?? (0 pounds, 14 ??ounces , 83.5% Procedure Note Luca Kaur MD - 05/03/2025 FINDINGS: A single, live intrauterine is present with normal cardiacrate of 141 beats per minute. Normal activity . Morphology isgrossly normal with the exception of suboptimal visualization of theRVOT/LVOT. The cervix is long and closed, 5.2 cm. The placenta posteriorGrade 1, the inferior aspect of the placenta 2.9 cm from the closedcervical os. The current sonographic age is 21 weeks and 0 days, date ofdelivery September 13, 2025. The current estimated weight is 393grams (0 pounds, 14 ounces , 83.5% IMPRESSION: 1. Single live intrauterine , current sonographic age of 21weeks, 0 days, with an estimated date of delivery September 13, 2025. 2. Suboptimal imaging RVOT/LVOT. TRANSCRIBED BY: ELECTRONICALLY SIGNED BY: Luca Kaur MD Authorizing ProviderResult TypeResult StatusKassi Mishra NPIMG OB US PROCEDURESFinal Result * US OB transvaginal (04/06/2025 8:34 AM EDT) Only the most recent of2 resultswithin the time period is included. Anatomical RegionLateralityModalityBodyUltrasoundSpecimen (Source)Anatomical Location / LateralityCollection Method / VolumeCollection TimeReceived Time 04/06/2025 11:44 AM EDT Impressions 04/06/2025 12:02 PM EDT 1. Closed cervix, 5.9 cm length 2. Viable intrauterine TRANSCRIBED BY: ? ELECTRONICALLY SIGNED BY: Luca Kaur MD [facility] 04/06/2025 12:02 PM EDT FINDINGS: Single viable intrauterine with normal cardiac activity, 130 bpm. Closed cervix, 5.9 cm length. Procedure Note Luca Kaur MD - 04/06/2025 FINDINGS: Single viable intrauterine with normal cardiac activity, 130bpm. Closed cervix, 5.9 cm length. IMPRESSION: 1. Closed cervix, 5.9 cm length 2. Viable intrauterine TRANSCRIBED BY: ELECTRONICALLY SIGNED BY: Luca Kaur MD Authorizing ProviderResult TypeResult StatusKristina Danica NPIMG OB US PROCEDURESFinal Result * Urine culture (03/25/2025 2:04 PM EDT)Specimen (Source)Anatomical Location / LateralityCollection Method / VolumeCollection TimeReceived TimeUrineUrine specimen obtained by clean catch procedure / Unknown Narrative Authorizing ProviderResult TypeResult StatusCorey Ruiz TORRES MICROBIOLOGY - GENERAL ORDERABLESFinal ResultPerforming OrganizationAddressCity/State/ZIP Code Phone Number EXTERNAL LAB from Last 3 Months Insurance Care Teams Team MemberRelationshipSpecialtyStart DateEnd Shaun Florez MD [address] [place] [address] PCP - GeneralVirginia Gay Hospitally Medicine11/25/23
[2025-06-07 10:41] LABS: Hematocrit 39.7 % (36.0-48.0); Hemoglobin 13.2 g/dL (12.0-16.0); Immature Granulocytes Abs Auto 0.09 10^3/uL (0.00-0.03); Immature Granulocytes Pct Auto 1.0 % (0.0-0.5); Lymphocytes Absolute Auto 1.7 10^3/uL (1.2-3.8); Mean Corpuscular HGB Conc 33.2 g/dL (29.9-35.2); Mean Corpuscular Hemoglobin 30.6 pg (26.7-34.0); Mean Corpuscular Volume 91.9 fL (81.0-99.0); Platelet Count 269 10^3/uL (150-450); Red Blood Count 4.32 10^6/uL (4.20-5.40); White Blood Count 8.8 10^3/uL (4.0-11.0)
[2025-06-07 10:56] LABS: Glucose 1 Hour 157 mg/dL (<130)
== END 2025-06-07 09:17 | disposition home or self-care (01) ==
LOC: LAB 09:19
PROVIDERS: PCP Family Medicine; Visit Provider Obstetrics & Gynecology
DX: Z13.1 Encounter for screening for diabetes mellitus (principal)
CPT/HCPCS: 36415; 82950; 85025

== ENCOUNTER 2025-06-19 07:59 | Outpatient (OUT) | payer OTHER, SELFPAY ==
--- OUTSIDE RECORDS SUMMARY | 2025-06-19 08:03 | XMS_ITS | Encounter Summary ---
Author Organization [facility] Address [address] [place] [address] Care Team Providers Care Regulatory Affairs Associate Name Role Phone Shaun Florez MD Primary Care Provider [phone] Encounter Details DateTypeDepartmentCare Team (Latest Contact Info)Kcsgicgpwpq91/03/2025linisync Result Encounter [facility] Unsolicited Ha Melchor DO [address], [place] [address] Social History Tobacco UseTypesPacks/DayYears UsedDateSmoking Tobacco: Never Assessed Estimated Date of OcyzwncuIeuseensRly42/13/2026Based on UltrasoundSex and Gender InformationValueDate RecordedSex Assigned at EinuxUsyoyf56/17/2024 10:16 AM EDT Legal VolMkrffz52/15/2023 8:01 PM EDTGender IdentityNot on fileSexual OrientationNot on filedocumented as of this encounter Plan of Treatment DateTypeDepartmentCare Team (Latest Contact Info)Mvdzpelfzes05/19/2025 1:50 PM ESTRoutine [facility] Mario STEWART [facility] [place] [phone] Ha Melchor DO [facility] [place] [address] 12/06/2025 11:00 AM EDTOffice Visit [facility]SE[facility] [place] [address] Ha Melchor, DO [address] [place] [address] documented as of this encounter Procedures Procedure NamePriorityDate/TimeAssociated DiagnosisCommentsGLUCOSE 1 HOURRoutine 06/07/2025 10:28 AM EST ALL CBC WITH AUTO RSXAEyvvmfn75/03/2025 10:28 AM EST documented in this encounter Results * (ABNORMAL) GLUCOSE 1 HOUR (06/07/2025 10:28 AM EST)ComponentValueRef RangeTest MethodAnalysis TimePerformed AtPathologist SignatureGLUCOSE 1 XNOY518(H)<130 mg/dLTBHSpecimen (Source)Anatomical Location / LateralityCollection Method / VolumeCollection TimeReceived Time06/07/2025 10:28 AM EST06/07/2025 10:30 AM EST Narrative [facility] - 06/07/2025 10:57 AM EST Authorizing ProviderResult TypeResult StatusCorey Ruiz TORRES BLOOD ORDERABLES Final ResultPerforming OrganizationAddressCity/State/ZIP CodePhone Number [facility] * (ABNORMAL) ALL CBC WITH AUTO DIFF (06/07/2025 10:28 AM EST)ComponentValueRef RangeTest MethodAnalysis TimePerformed AtPathologist SignatureTBH WBC8.84.0 - 11.0 10 3/uLTBHTBH RBC4.324.20 - 5.40 10 6/uLTBHTBH HGB13.212.0 - 16.0 g/dLTBH TBH HCT39.736.0 - 48.0 %TBHTBH MCV91.981.0 - 99.0 fLTBHTBH MCH30.626.7 - 34.0 pgTBHTBH MCHC33.229.9 - 35.2 g/dLTBHTBH RDW12.511.0 - 15.0 %TBHTBH RLL096651 - 450 10 3/uLTBHTBH MPV9.4(L)9.5 - 13.5 fLTBHNEUTROPHILS PERCENT AUTO72.243.0 - 75.0 %TBHLYMPHOCYTES PERCENT AUTO19.9(L)20.5 - 60.0 %TBHMONOCYTES PERCENT AUTO 6.61.7 - 12.0 %TBHTBH EO %0.0(L)0.9 - 7.0 %TBHBASOPHILS PERCENT AUTO0.30.2 - 2.0 %TBHIMMATURE GRANULOCYTES PCT AUTO1.0(H)0.0 - 0.5 %TBHNEUTROPHILS ABSOLUTE AUTO6.31.4 - 6.5 10 3/uLTBHLYMPHOCYTES ABSOLUTE AUTO1.71.2 - 3.8 10 3/uLTBH MONOCYTES ABSOLUTE AUTO0.60.3 - 0.8 10 3/uLTBHTBH EO #0.00.0 - 0.7 10 3/uLTBH BASOPHILS ABSOLUTE AUTO0.00.0 - 0.1 10 3/uLTBHIMMATURE GRANULOCYTES ABS AUTO 0.09(H)0.00 - 0.03 10 3/uLTBHSpecimen (Source)Anatomical Location / Laterality Collection Method / VolumeCollection TimeReceived Time06/07/2025 10:28 AM EST 06/07/2025 10:30 AM EST Narrative [facility] - 06/07/2025 10:47 AM EST Authorizing ProviderResult TypeResult StatusCorey Ruiz DOCLINISYNCFinal Result Performing OrganizationAddressCity/State/ZIP CodePhone Number [facility] documented in this encounter Visit Diagnoses Not on filedocumented in this encounter Care Teams Team MemberRelationshipSpecialtyStart DateEnd Shaun Florez MD [address] [place] [phone] PCP - GeneralFamily Medicine11/25/23documented as of this encounter
--- OUTSIDE RECORDS SUMMARY | 2025-06-19 08:03 | XMS_ITS | CCD ---
Author Organization [facility] Care Team Providers Care Senior Revenue Accountant Name Role Phone CINDY BUCKNER Admitting Unavailable CINDY BUCKNER Attending Unavailable HARMAN Mott, DR NUNEZ Primary Care Unavailable CINDY BUCKNER Consulting Unavailable Omero Melchor Attending Provider DO Omero Melchor Attending Provider Omero Melchor Admitting Unavailable Omero Melchor Attending Unavailable Ruiz, Omero Attending Unavailable Ruiz, Omero Admitting Unavailable Shaun Florez MD Primary Care Provider [phone] Shaun Florez MD Primary Care Provider [phone] Shaun Florez MD Primary Care Provider [phone] KASSI MISHRA Attending Unavailable OMERO MELCHOR Attending Unavailable CINDY MARQUES Attending Unavailable OMERO MELCHOR Attending Unavailable RUIZ, OMERO Attending Unavailable KASSI MISHRA Referring Unavailable OMERO MELCHOR Attending Unavailable Medications Current Medications MedicationDrug Class(es)DatesSig (Normalized)Sig (Original)cefdinir 300 mg oral capsule (1 source)Cephalosporin AntibacterialStart: 22-36-0885etqa 300 mg by mouth twice dailyCefdinir Active 300 MG PO Twice daily 24 05December 03, 2023 12:00am ondansetron 4 mg oral tablet (12 sources)Serotonin-3 Receptor AntagonistStart: 47-22-1298rixy 1 tablet by mouth every six hours as needed for nausea and nausea, then take 1 tablet by mouthevery six hours as needed for nausea and nauseaondansetron (Zofran) 4 MG tablet Indications: Nausea and vomiting in ([facility]) Take 1 tablet (4 mg) by mouth every 6 (six) hours if needed for nausea or vomiting for up to 30 doses Take 1 tablet by mouth every 6 hours as needed for nausea. 30 tablet 03/01/2025 ActivePrenatal MV-Min-Fe Fum-FA-DHA ( 1 PO) (14 sources) MV-Min-Fe Fum-FA-DHA ( 1 PO) Take by mouth Active Completed/Discontinued Medications MedicationDrug Class(es)DatesSig (Normalized)Sig (Original)penicillin v potassium 500 mg oral tablet (2 sources)Start: 11-22-2023 End: 63-16-1052qhwo 500 mg by mouth twice dailyPenicillin V Potassium Discontinued 500 MG PO Twice daily 24 05November 22, 2023 12:00am December 03, 2023 3:35pm Problems Active Problems Problem ClassificationProblemDateDocumented DateEpisodic/ChronicCancer of cervix (6 sources)Cervical intraepithelial neoplasia grade 1; Translations: [Low grade squamous intraepithelial lesion on cytologic smear of cervix (LGSIL)]07-13-2024 EpisodicImmunizations and screening for infectious disease (1 source)Encounter for screening for human papillomavirus (HPV); Translations: [ENC SCREENING HUMAN PAPILLOMAVIRUS]Onset: 04-40-3972IjnayxmxCvntjbtdd disorders (1 source)Missed period; Translations: [Irregular menstruation, unspecified] 18-03-5472OjtvvztMkfhq complications of (2 sources)Vomiting of , unspecified; Translations: [Unspecified vomiting of , unspecified as to episode of care or not applicable] 46-07-2292RipozgsmGgslf and delivery including normal (10 sources); Translations: [Encounter for supervision of normal , unspecified, unspecified trimester]93-05-5446PiaziztuPzkfz screening for suspected conditions (not mental disorders or infectious disease) (11 sources)Encounter for screening for malignant neoplasm of cervix; Translations: [Patient encounter status]Onset: 74-26-8369AgofzogbVkkbz upper respiratory infections (4 sources)Sore throat symptom; Translations: [Acute pharyngitis, unspecified] 91-13-3111AboyestbAyqilfgo codes; unclassified (2 sources)Gestation period, 11 weeks; Translations: [11 weeks gestation of ]04-44-5118MmjdoowrNesnpayr codes; unclassified (2 sources)History of loop electrosurgical excision procedure; Translations: [Other specified postprocedural states]20-50-5970UwosnoukJamgzjrm codes; unclassified (2 sources)Gestation period, 15 weeks; Translations: [15 weeks gestation of ]54-05-6308ArqibrpqLotrwuam codes; unclassified (2 sources)Gestation period, 19 weeks; Translations: [19 weeks gestation of ]92-86-5711JtszuacbWaufeyqa codes; unclassified (2 sources)Gestation period, 23 weeks; Translations: [23 weeks gestation of ]78-84-2018Baplgayq Past or Other Problems Problem ClassificationProblemDateDocumented DateEpisodic/ChronicOther aftercare (2 sources)Surgical follow-up; Translations: [Encounter for follow-up examination after completed treatment for conditions other than malignant neoplasm]46-04-4447Cyqfudrd Results Test NameValueInterpretationReference RangeFacilityALL CBC WITH AUTO DIFFon 22-41-5522AXIWABMHZ ABSOLUTE AUTO0.0NOMS HealthcareBasophils/100 WBC (Bld)0.3 % 0.2 - 2.0 %NOMCox Walnut LawnEosinophils/100 WBC (Bld)0.0 %Low0.9 - 7.0 %[facility] CenterErythrocyte distribution width (RBC) [Ratio]12.5 %11.0 - 15.0 %[facility] CenterHematocrit (Bld) [Volume fraction]39.7 %36.0 - 48.0 %[facility] Hemoglobin (Bld) [Mass/Vol]13.2 g/dL12.0 - 16.0 g/dLNOTexas County Memorial HospitalIMMATURE GRANULOCYTES ABS AUTO0.09HighNOTexas County Memorial HospitalImmature granulocytes/100 WBC (Bld) 1.0 %High0.0 - 0.5 %[facility] CenterInterpretation and review of laboratory resultsAbnormalNOTexas County Memorial HospitalLYMPHOCYTES ABSOLUTE AUTO1.7NOMS [facility] Lymphocytes/100 WBC (Bld)19.9 %Low20.5 - 60.0 %[facility] HospitalH (RBC) [Entitic mass]30.6 pg26.7 - 34.0 pgNOWashington University Medical CenterHC (RBC) [Mass/Vol]33.2 g/dL29.9 - 35.2 g/dLNOMS HealthcareMCV (RBC) [Entitic vol]91.9 fL81.0 - 99.0 fLNOMS HealthcareMONOCYTES ABSOLUTE AUTO0.6NOMS HealthcareMonocytes/100 WBC (Bld)6.6 % 1.7 - 12.0 %NOMS HealthcareNEUTROPHILS ABSOLUTE AUTO6.3N[facility] Neutrophils/100 WBC (Bld)72.2 %43.0 - 75.0 %NOMS HealthcarePlatelet mean volume (Bld) [Entitic vol]9.4 fLLow9.5 - 13.5 fLNOMS HealthcareTBH EO #0.0NOMS HealthcareTBH [id number] HealthcareTBH RBC4.32NOMS HealthcareTBH WBC8.8NOMS HealthcareCLINISYNCNOMS HealthcareUS OB LIMITED 1+ FETUSESon 52-91-2810MW OB LIMITED 1+ FETUSESFINDINGS: Single viable intrauterine with cephalic presentation, normal cardiac activity 144 bpm. Normal cardiac evaluation of the LVOT, RVOT seen on today's exam. Gestational age of 23 weeks and 3 days with an estimated delivery date of September 17, 2025. IMPRESSION: Single viable intrauterine , normal outflow tract evaluation appropriate for this age. TRANSCRIBED BY: ELECTRONICALLY SIGNED BY: Jj Castanon AvailableComment on above:Order Comment: US OB INCOMPLETE ANATOMY Estimated Date of Delivery: 09/17/25 Gestational Age as of 05/24/2025: 72c4pChzwowiziv macro (dipstick) panel (U)on 97-47-5048Kbuwdgjtc, UANegativeNegative - 4(70) +++ mg/dLNONY HealthcareBlood, UANegativeNegative - 50 Onel/mcLNOMS HealthcareClarity, UAClearNOMS Healthcare Color, UAYellowNOMS HealthcareGlucose, UANegativeNegative - 2000(110) ++++ mg/dL NOM HealthcareInterpretation and review of laboratory resultsAbnormalNONY HealthcareKetones, UANegativeNegative - 160(16) ++++ mg/dLNONY Healthcare Leukocytes, UA2+Negative - 500+++ Virgen/mcLNOMS HealthcareNitrite, UANegative Negative - PositiveNONY HealthcarepH, UA7.05 - 9NOMS HealthcareProtein, UA NegativeNegative - 1999(20) ++++ mg/dLNOMS HealthcareSpec Grav, UA1.0101 - 1.03 NOMS HealthcareUrobilinogen, UA2.00.2 - 12 mg/dLNOMS HealthcareNOMS HealthcareUS OB 14+ WEEKS ANATOMY SCANon 96-49-3304JB OB 14+ WEEKS ANATOMY SCANFINDINGS: A single, live intrauterine is present with normal cardiac rate of 141 beats per minute. Normal activity . Morphology is grossly normal with the exception of suboptimal visualization of the RVOT/LVOT. The cervix is long and closed, 5.2 cm. The placenta posterior Grade 1, the inferior aspect of the placenta 2.9 cm from the closed cervical os. The current sonographic age is 21weeks and 0 days, date of delivery September 13, 2025. The current estimated weight is 393 grams (0 pounds, 14 ounces , 83.5% IMPRESSION: 1. Single live intrauterine , current sonographic age of 21 weeks, 0 days, with an estimated date of delivery September 13, 2025. 2. Suboptimal imaging RVOT/LVOT. TRANSCRIBED BY: ELECTRONICALLY SIGNED BY: Joana CastanonalNot AvailableComment on above:Order Comment: US OB ANATOMY SINGLE W US OB CERVICAL LENGTH Estimated Date of Delivery: 09/17/25 Gestational Age as of 03/29/2025: 91m7pZgqcdmaxoy macro (dipstick) panel (U)on 55-40-5350Aqvstscez, UANegativeNegative - 4(70) +++ mg/dLNOMS HealthcareBlood, UANegativeNegative - 50 Onel/mcLNOMS HealthcareClarity, UAClearNOMS Healthcare Color, UAYellowNOMS HealthcareGlucose, UANegativeNegative - 1999(110) ++++ mg/dL NOMS HealthcareInterpretation and review of laboratory resultsNormalNOMS HealthcareKetones, UANegativeNegative - 160(16) ++++ mg/dLNOMS Healthcare Leukocytes, UA1+Negative - 500+++ Virgen/mcLNOMS HealthcareNitrite, UANegative Negative - PositiveNOMS HealthcarepH, UA65 - 9NOMS HealthcareProtein, UANegative Negative - 1999(20) ++++ mg/dLNOMS HealthcareSpec Grav, UA1.011 - 1.03NOMS HealthcareUrobilinogen, UA1.00.2 - 12 mg/dLNOMS HealthcareNOMS HealthcareUS OB TRANSVAGINALon 79-23-5174CP OB TRANSVAGINALFINDINGS: Single viable intrauterine with normal cardiac activity, 130 bpm. Closed cervix, 5.9 cm length. IMPRESSION: 1. Closed cervix, 5.9 cm length 2. Viable intrauterine TRANSCRIBED BY: ELECTRONICALLY SIGNED BY: Jj Castanon AvailableComment on above:Order Comment: US OB TRANSVAGINAL (CERVICAL LENGTH) Estimated Date of Delivery: 09/17/25 Gestational Age as of 03/01/2025: 78n1oGbhljruwta macro (dipstick) panel (U)on 26-68-9612Bvfquxfdu, UANegativeNegative - 4(70) +++ mg/dLNOMS HealthcareBlood, UANegativeNegative - 50 Onel/mcLNOMS HealthcareClarity, UAClearNOMS Healthcare Color, UAYellowNOMS HealthcareGlucose, UANegativeNegative - 1999(110) ++++ mg/dL NOMS HealthcareInterpretation and review of laboratory resultsAbnormalNOMS HealthcareKetones, UANegativeNegative - 160(16) ++++ mg/dLNOMS Healthcare Leukocytes, UA3+Negative - 500+++ Virgen/mcLNOMS HealthcareNitrite, UANegative Negative - PositiveNOMS HealthcarepH, UA75 - 9NOMS HealthcareProtein, UANegative Negative - 1999(20) ++++ mg/dLNOMS HealthcareSpec Grav, UA1.011 - 1.03NOMS HealthcareUrobilinogen, UA1.00.2 - 12 mg/dLNOMS HealthcareNOMS HealthcareUS OB TRANSVAGINALon 45-06-6184WW OB TRANSVAGINALFINDINGS: Single viable intrauterine with cardiac activity identified, 165 bpm. Closed cervix, 4.1 cm length, no funneling. IMPRESSION: Viable intrauterine , closed cervix 4.0 cm length. TRANSCRIBED BY: ELECTRONICALLY SIGNED BY: Jj Castanon AvailableComment on above:Order Comment: US OB TRANSVAGINAL (CERVICAL LENGTH) Estimated Date of Delivery: 09/17/25 Gestational Age as of 03/01/2025: 95u5sLIH DRUG SCREEN RAPID (URINE)on 03-01-2025 AMPHETAMINE SCREEN URINENegativeNEGATIVENOMS HealthcareBARBITURATES SCREEN URINE NegativeNEGATIVENOMS HealthcareBENZODIAZEPINES SCREEN URINENegativeNEGATIVENOMS HealthcareBUPRENORPHINE SCREEN URINENegativeNEGATIVENOMS HealthcareComment on above:DRUG CLASS TEST SYSTEM CUT-OFF CONCENTRATIONS ARE FOLLOWS: AMP (Amphetamine): 500 ng/mL BAR (Barbiturates): 200 ng/mL BZO (Benzodiazepines): 150 ng/mL BUP (Buprenorphine): 10 ng/mL SHARMAINE (Cocaine): 150 ng/mL mAMP (Methamphetamine): 500 ng/mL MTD (Methadone): 200 ng/mL OPI (Opiates): 100 ng/mL OXY (Oxycodone): 100 ng/mL PCP (Phencyclidine): 25 ng/mL THC (Cannabinoids): 50 ng/mL TCA (Trycyclic Antidepressants): 300 ng/mL CANNABINOID SCREEN URINENegativeNEGATIVENOMS HealthcareCOCAINE SCREEN URINE NegativeNEGATIVENOMS HealthcareMETHADONE SCREEN URINENegativeNEGATIVENOMS HealthcareMETHAMPHETAMINES SCREEN URINENegativeNEGATIVENOMS HealthcareOPIATE SCREEN URINENegativeNEGATIVENOMS HealthcareOXYCODONE SCREEN URINENegative NEGATIVENOMS HealthcarePHENCYCLIDINE SCREEN URINENegativeNEGATIVENOMS Healthcare TRICYCLIC ANTIDEPRESSANT URINENegativeNEGATIVENOMS HealthcareCLINISYNCNOMS HealthcareUrinalysis macro (dipstick) panel (U)on 30-56-7634Knrpvdati, UA NegativeNegative - 4(70) +++ mg/dLNOMS HealthcareBlood, UANegativeNegative - 50 Noel/mcLNOMS HealthcareClarity, UAClearNOMS HealthcareColor, UAYellowNOMS HealthcareGlucose, UANegativeNegative - 2000(110) ++++ mg/dLNOMS Healthcare Interpretation and review of laboratory resultsNormalNOMS HealthcareKetones, UA NegativeNegative - 160(16) ++++ mg/dLNOMS HealthcareLeukocytes, UANegative Negative - 500+++ Virgen/mcLNOMS HealthcareNitrite, UANegativeNegative - Positive NOMS HealthcarepH, UA65 - 9NOMS HealthcareProtein, UANegativeNegative - 1999(20) ++++ mg/dLSANPETE VALLEY HOSPITAL HealthcareSpec Grav, UA1.021 - 1.03NONY HealthcareUrobilinogen, UA0.20.2 - 12 mg/dLTenet St. Louis HealthcareUS OB TRANSVAGINALon 02-11-2025 US OB TRANSVAGINALFINDINGS: Comparison January 28, 2025. A single intrauterine [...] 18, 2025. TRANSCRIBED BY: ELECTRONICALLY SIGNED BY: Joana CastanonalNot AvailableComment on above:Order Comment: US OB REEVAL ABN Estimated Date of Delivery: 09/17/25 Gestational Age as of 02/11/2025: 1i8lLTW ( test) Ql (U)on 01-28-2025 Interpretation and review of laboratory resultsAbnormalWestern Missouri Mental Health CenterPreg Test, UrPositiveNegativeNovant Health / NHRMCUS OB TRANSVAGINALon 01-28-2025 US OB TRANSVAGINALEXAM: US OB TRANSVAGINAL HISTORY: Dating. COMPARISON: None [...] II, MD, PHD at 31-Jan-2025 10:03:24 PM [facility] [place] TeleradiologyNormalNot AvailableComment on above:Order Comment: US OB TRANSVAGINAL No LMP recorded.Urinalysis macro (dipstick) panel (U)on 43-23-5937Jmbgqxbvl, UA NegativeNegative - 4(70) +++ mg/dLNOMS HealthcareBlood, UANegativeNegative - 50 Onel/mcLNOMS HealthcareClarity, UAClearNOMS HealthcareColor, UAYellowNOMS HealthcareGlucose, UANegativeNegative - 2000(110) ++++ mg/dLNOMS Healthcare Interpretation and review of laboratory resultsAbnormalNOMS HealthcareKetones, UANegativeNegative - 160(16) ++++ mg/dLNOMS HealthcareLeukocytes, UAPositive Negative - 500+++ Virgen/mcLNOMS HealthcareComment on above:smallNitrite, UA NegativeNegative - PositiveNOMS HealthcarepH, UA6.55 - 9NOMS HealthcareProtein, UANegativeNegative - 2000(20) ++++ mg/dLNOMS HealthcareSpec Grav, UA1.0151 - 1.03NOMS HealthcareUrobilinogen, UA0.20.2 - 12 mg/dLNOMS HealthcareNOMS HealthcareIGP,APTIMA HPV,AGE GDLNon 14-80-7121HYB GDLN ACOG TESTINGNote.NOMS HealthcareComment on above:TESTS RESULT FLAG UNITS REF RANGE LAB Clinician Provided Cytology Information Source.............Cervix;Endocervix No. of containers..01 ThinPrep Vial Age Tr MELÉNDEZ Xochilt... FLAG LEGEND: L-Low Normal,H-High Normal,LL-Alert Low,HH-Alert High <-Panic Low,>-Panic High,A-Abnormal,AA-Critical Abnormal Performed at: 01 =[facility] [address] [place] [address] Miriam Contreras MD, IGP, RFX APTIMA HPV ASCUNote.NOMS HealthcareComment on above:TESTS RESULT FLAG UNITS REF RANGE LAB DIAGNOSIS: 02 NEGATIVE FOR INTRAEPITHELIAL LESION OR MALIGNANCY. Specimen adequacy: 02 Satisfactory for evaluation. Endocervical and/or squamous metaplastic cells (endocervical component) are present. Performed by: 02 Yeimy Cottrell, Chief Pharmacist ([facility]) . 02 Note: Note 02 The Pap [...] <-Panic Low,>-Panic High,A-Abnormal,AA-Critical Abnormal Performed at: [address] [address] Miriam Contreras MD, Performed at: = - [facility] [id number] [place]: Miriam Contreras MD, Phone: [phone] Performed at: [facility] [id number] [place]: Miriam Contreras MD, Phone: [phone] BRUSH-SPATULA CERVIX ENDOCERVIX CLINISYNCNOMS HealthcareHCG ( test) Ql (U)on 36-59-9483Jcusaqtrcktpva and review of laboratory resultsNormalNOMS HealthcarePreg Test, UrNegative NegativeNOTexas County Memorial HospitalNONY HealthcareUrinalysis macro (dipstick) panel (U)on 87-37-6079Pxlyqjfje, UANegativeNegative - 4(70) +++ mg/dLNOMS HealthcareBlood, UANegativeNegative - 50 Onel/mcLNOMS HealthcareClarity, UAClearNOMS Healthcare Color, UAYellowNOMS HealthcareGlucose, UANegativeNegative - 2000(110) ++++ mg/dL [facility] HealthcareInterpretation and review of laboratory resultsNormalNONY HealthcareKetones, UANegativeNegative - 160(16) ++++ mg/dLSANPETE VALLEY HOSPITAL Healthcare Leukocytes, UANegativeNegative - 500+++ Virgen/mcLNONY HealthcareNitrite, UA NegativeNegative - PositiveNONY HealthcarepH, UA6.55 - 9NONY HealthcareProtein, UANegativeNegative - 2000(20) ++++ mg/dLNONY HealthcareSpec Grav, UA1.0151 - 1.03NONY HealthcareUrobilinogen, UA0.20.2 - 12 mg/dLNOProgress [facility] HealthcarePAP IG, APT HPV RFX 16/18,45on 41-90-9087CYU APTIMANegativeNegative [facility] HealthcareComment on above:This nucleic acid amplification test detects fourteen high- risk HPV types (16,18,31,33,35,39,45,51,52,56,58,59,66,68) without differentiation. Performed at: - [facility] [id number] [place]: Miriam Contreras MD, Phone: [phone] Performed at: = - [facility] [id number] [place]: Miriam Contreras MD, Phone: [phone] PAP IG (IMAGE GUIDED)Note.[facility] HealthcareComment on above:TESTS RESULT FLAG UNITS REF RANGE LAB Clinician Provided Cytology Information Source.............Cervix;Endocervix No. of containers..01 ThinPrep Vial DIAGNOSIS: 01 NEGATIVE FOR INTRAEPITHELIAL LESION OR MALIGNANCY. REACTIVE CELLULAR CHANGES AND/OR REPAIR ARE PRESENT. Specimen adequacy: 01 Satisfactory for evaluation. No endocervical component is identified. Performed by: 01 Sienna García, Environmental Conservation Officer (ASCP) Electronically si... Kathryn Harvey MD, Pathologist . 01 Note: [...] Test Methodology: Note 01 The Thin Prep(R) Scraper Operator was unable to read this specimen. Therefore a manual review was performed. HPV Genotype Reflex Note 01 Criteria not met, HPV Genotype not performed. FLAG LEGEND: L-Low Normal,H-High Normal,LL-Alert Low,HH-Alert High <-Panic Low,>-Panic High,A-Abnormal,AA-Critical Abnormal Performed at: 01 [facility] [address] [address] Miriam Contreras MD, BRUSH-SPATULA CERVIX ENDOCERVIX CLINISYNCNOMS HealthcarePathology Request for Lab Corpon 54-54-4972Rxqjrgzum Request for Lab CorpNormHCA Florida [facility] Hospital Physician GroupComment on above:Order Comment: PATHOLOGY MOUSE BREEDER SPECIMENResult Comment: See report. Scanned copy available in EMR. PERFORMED BY: [place] [address] PATHOLOGIST GAS WELDING MACHINE OPERATOR SALVADOR HARDY M.D.Performed By: #### PATH TO [facility] #### [place] [address] USALon 56-04-5528NHxgxrxnf: [id number] Received: 12/26/23 [facility] Num: [id number] Spec Type: Surgical Subm Dr: Omero Melchor Tissues: A Endocervix - Curettings (ECC) Procedures: HE/2, Gross/Micro L4 Age/ Patient Sex Location Account Attending Physician Mervat Mendez 28/ [facility] [id number] Omero Melchor SPEC NUM: [id number] RECD: 12/26/23 STATUS: MINA PEREZLuca NUM: [id number] ALBA: 12/24/23- SUBM DR: Omero Melchor ENTERED: 12/26/23 [facility] DR: Mario,Lab SPEC TYPE: Surgical DEPT: BUCK JORDAN ORDERED: HE/2, Gross/Micro L4 ORDERED: HE/2, Gross/Micro L4 Pathological Diagnosis Endocervical curetting: -HSIL, including at least 1 small (1 mm) and 1 larger (3 mm) strips of the GIOVANNI- 2, to mostly GIOVANNI-3 types Clinical Information LSIL Gross Description Received in formalin, labeled with the patient's name, date of and ECC is an aggregate of minute cohen tissue admixed with mucus collectively measuring 1.1 x 0.9 x 0.1 cm, entirely submitted in A1. CPT Codes 85472 Specimen: [id number] Received: 12/26/23 Status: MINA Rgoer Num: [id number] Spec Type: Surgical Subm Dr: Omero Melchor Tissues: A Endocervix - Curettings (ECC) Procedures: HE/2, Gross/Micro L4 Patient: Mervat Mendez [id number] (Continued) Signed (signature on file) Chin-Marco A Llamas MD 12/28/23 1828[facility] Physician GroupNo Panel InformationOrdered By: Jens Rodriguez on 41-18-8292Srqsn Strep (POC)[facility] HospitalNo Panel InformationOrdered By: Farrah Olivo on 49-62-4466Qsajz Strep (POC)[facility] HospitalPAP ACOG PANEL 2: 21 to 29on 11-27-2022..NormalThe [facility] Specialty Hospital - CantonComment on above:Performed By: #### [id number] #### [facility] Laboratory [address] [place] [address] Dr. Darron LlamasAge Gdln ACOG Owydzdb56-58KsvksyBelMetroHealth Cleveland Heights Medical CenterComment on above:Performed By: #### [id number] #### [facility] [address] [address] [address] Darron LlamasDIAGNOSIS:CommentNoParkview Health Bryan Hospitalment on above: Result Comment: NEGATIVE FOR INTRAEPITHELIAL LESION OR MALIGNANCY.Performed By: #### [id number] #### [facility] [address] [place] [address] Dr. Darron LlamasMethodology:CommentNoParkview Health Bryan Hospitalment on above: Result Comment: This liquid based ThinPrep(R) pap test was screened with the use of an image guided system.Performed By: #### [id number] #### [place] [address] [address] Darron LlamasNote:CommentMercy Health Willard Hospital on above:Result Comment: The Pap smear is a screening test designed to aid in the detection of premalignant and malignant conditions of the uterine cervix. It is not a diagnostic procedure and should not be used as the sole means of detecting cervical cancer. Both false-positive and false-negative reports do occur. .Performed By: #### [id number] #### [facility] [address] [place] [address] Dr. Darron LlamasPerformed by:CommentMercy Health Willard Hospital on above: Result Comment: Francisco Hernandez, Environmental Conservation Officer (ASCP)Performed By: #### [id number] #### [place] [address] [address] Darron LlamasReflex Criteria:CommentMercy Health Willard Hospital on above:Result Comment: The HPV DNA reflex criteria were not met with this specimen result therefore, no HPV testing was performed. .Performed By: #### [id number] #### [place] [address] Dr[address] Darron LlamasSpecimen adequacy:CommentMercy Health Willard Hospital on above:Result Comment: Satisfactory for evaluation. No endocervical component is identified.Performed By: #### [id number] #### [facility] [address] [place] [address] Dr. Darron Llamas Vital Signs Date TimeVital SignValuePerforming OyetrojxtVaszpwkm57-11-3930 08:55-0400Body mass index (BMI) [Ratio]29.73 kg/s1Npgoz Ruiz DO Work Phone: [facility] CenterKocrcixclr63-05-2719 08:55-0400Body ufrugz93.09 kgCorey Ruiz DO Work Phone: [facility] CenterLnufvipcxz26-91-8440 08:55-0400Diastolic blood mdiuurqo95 mm[Hg]Omero Ruiz DO Work Phone: [phone] [place], [place] [address]Szxnhkoknu05-65-7144 08:55-0400Systolic blood tfkuzgvc244 mm[Hg]Omero Ruiz DO Work Phone: [phone] [place], [place] [address]Neupuomito21-32-4553 15:56-0400Body mass index (BMI) [Ratio]28.51 kg/l3Ccfog Ruiz DO Work Phone: [phone])[facility] [place], [place] [address]Ycnvfrwmfh65-62-0295 15:56-0400Body agisqq87.56 kgCorey Ruiz DO Work Phone: [phone])[facility] [place], [place] [address]Krhifpwydt03-44-5256 15:56-0400Diastolic blood oxpfqrwl61 mm[Hg]Omero Ruiz DO Work Phone: [phone] [place], [place] [address]Azoukzdfxr85-81-7212 15:56-0400Systolic blood cpytfplm638 mm[Hg]Omero Ruiz DO Work Phone: [phone])[facility] [place], [place] [address]Tkvimokwkn11-36-4765 14:11-0400Body mass index (BMI) [Ratio]27.41 kg/q0Fqopj Ruiz DO Work Phone: [phone] [place], [place] [address]8-25-2025 14:11-0400Body rhdidq80.38 kgCorey Ruiz DO Work Phone: [phone])[facility] [place], [place] [address]Ykmvjylcsv30-39-9397 14:11-0400Diastolic blood vkdwmdaq53 mm[Hg]Oemro Ruiz DO Work Phone: [phone])[facility] [place], [place] [address]Syxudmlgqh03-74-7823 14:11-0400Systolic blood mm[Hg]Omero Ruiz DO Work Phone: [phone])[facility] [place], [place] [address]Itjhryzrjc70-90-6744 13:26-0400Body mass index (BMI) [Ratio]26.63 kg/q9Sieax Ruiz DO Work Phone: [phone])[facility] [place], [place] [address]Tnmyyumzai18-51-4505 13:26-0400Body yldonq60.11 kgCorey Ruiz DO Work Phone: [phone])[facility] [place], [place] [address]Pxehcnplwn42-34-5322 13:26-0400Diastolic blood rqlbabzs17 mm[Hg]Omero Jefferyo DO Work Phone: [phone] [place], [place] [address]Tvlwiyethq12-81-3841 13:26-0400Systolic blood vvpxdsna183 mm[Hg]Omero Ruiz DO Work Phone: [phone] [place], [place] [address]Pughqdyhst85-35-3034 13:34-0400Body mass index (BMI) [Ratio]27.41 kg/h9MqihtSt. [facility]06-26-2025 13:34-0400Body weight 79.38 kgSt. [facility]06-26-2025 13:34-0400Diastolic blood iynfwvkq83 mm[Hg][facility]06-26-2025 13:34-0400Systolic blood jpalbyde389 mm[Hg][facility]04-28-2025 09:23-0400Body mass index (BMI) [Ratio] 29.26 kg/o3FhcyspooKassi Mishra NP Work Phone: [phone] [place], [place] [address]Crrdqowmmg98-18-3165 09:23-0400Body ktuuvv92.73 kgKassi Mishra [employer] Work Phone: [phone] [place], [place] [address]Kgryltnbiz76-58-1919 09:23-0400Diastolic blood cqhtfnra39 mm[Hg]Kassi Mishra [employer] Work Phone: [phone] [place], [place] [address]Pfylpoapnz59-91-1630 09:23-0400Systolic blood nqruknph122 mm[Hg]Kassi Mishra [employer] Work Phone: [phone] [place], [place] [address]Audghlsitn12-15-1542 16:20-0500Body mass index (BMI) [Ratio]27.74 kg/m2Cindy VALLEJO Work Phone: [phone] [place], [place] [address]Ddbdakgkfz43-57-7868 16:20-0500Body fwsnly35.34 kgAmy Jerald VALLEJO Work Phone: [phone] [place], [place] [address]Qnmquuujqc82-42-2045 16:20-0500Diastolic blood fkvhzuie54 mm[Hg]Cindy VALLEJO Work Phone: [phone] [place], [place] [address]Cudwyacehh24-22-1076 16:20-0500Systolic blood ijnyvjhj579 mm[Hg]Cindy Marques YONI Work Phone: [facility] CenterItbqtutlyq73-68-5141 15:55-0400Body mass index (BMI) [Ratio]26.85 kg/m2Cindy Marques PA Work Phone: [facility] CenterJgjketxmrj09-80-1165 15:55-0400Body lpmpir89.75 kgCindy Marques YONI Work Phone: [facility] CenterQumrdunraw24-81-8900 15:55-0400Diastolic blood xuqmupzt08 mm[Hg]Cindy Marques YONI Work Phone: [facility] CenterJiztjfugmf13-83-4645 15:55-0400Systolic blood dgwqdstu971 mm[Hg]Cindy Marques YONI Work Phone: [facility] CenterBujhldnbmw70-18-5810 15:37-0400Body oaansn443.18 cm[facility]04[facility] 15:37-0400Body mass index (BMI) [Ratio]26.6 kg/v8GnehyojtrGreen Cross Hospital04-30-2024 15:37-0400Body tchhqjwoknq79.3 [degF][facility]04-30-2024 15:37-0400Body ubpacl06.11 kgGreen [facility]04-30-2024 15:37-0400Diastolic blood gmynsepc74 mm[Hg][facility]04-30-2024 15:37-0400 Heart rate80 /minGreen Cross Hospital04-30-2024 15:37-2858KcZ1% (BldA) [Mass fraction]98 %[facility]04-30-2024 15:37-0400 Systolic blood irzyqcth859 mm[Hg][facility]04-19-2024 09:08-0400Body oxiyxm121.18 cmGreen [facility] Hospital04-19-2024 09:08-0400Body mass index (BMI) [Ratio]24.3 kg/s2SuflozwzdGreen Cross Hospital04-19-2024 09:08-0400Body iklhmiqtpez52.4 [degF][facility]04-19-2024 09:08-0400Body qupixa09.3 kgGreen [facility] 11-22-2023 09:08-0400Diastolic blood rjhtyeyr82 mm[Hg][facility]04-19-2024 09:08-0400Heart mzkw090 /minGreen Cross Hospital 11-22-2023 09:08-2904OhH4% (BldA) [Mass fraction]98 %[facility]04-19-2024 09:08-0400Systolic blood cavvkqqo671 mm[Hg][facility] Encounters Encounter DateEncounter TypeCare ProviderFacilityStart: 06-07-2025 End: 24-63-6832Dewurmjye Result EncounterCorey Ruiz DO Work Phone: NOEG External Department UnsolicitedStart: 06-07-2025 End: 97-35-5886Buarozcrs Result EncounterCorey Ruiz DO Work Phone: noms External Department UnsolicitedStart: 05-24-2025 End: 85-54-8138Dkaghctt flow sheetCorey Ruiz DO Work Phone: [facility] [place] OBGYNComment on above:Second trimester ([facility]); 23 weeks gestation of ([facility]); Diabetes mellitus screeningStart: 05-24-2025 End: 09-62-7517jdmogowfnvOYQMK FAZIONot AvailableStart: 05-03-2025 End: 05-08-2608jsshyouykqGNCWFZLI JALYNot AvailableStart: 04-26-2025 End: 54-40-2444Rtvditcy flow sheetCorey Ruiz DO Work Phone: [facility] [place] OBGYNComment on above:Second trimester ([facility]); 19 weeks gestation of ([facility])Start: 04-26-2025 End: 52-01-0486pprfbacorbYDBIY FAZIONot AvailableStart: 04-26-2025 End: 76-08-4831Ncoshz flowsheetCorey Ruiz DO Work Phone: [facility] [place] [facility]BGYNStart: 04-26-2025 End: 16-30-5050Bxysga flowsheetCorey Ruiz DO Work Phone: [facility] [place] OBGYNStart: 04-06-2025 End: 17-81-5899tyewygymzjOKMZBLRW EBERMICHAELANot AvailableStart: 03-29-2025 End: 91-40-8372Rtqvhm flowsheetCorey Ruiz DO Work Phone: [facility]BGYNStart: 03-29-2025 End: 78-56-4458Ncilse flowsheetCorey Ruiz DO Work Phone: [facility] [place] OBGYNStart: 03-29-2025 End: 30-61-8985Xmmewmog flow sheetCorey Ruiz DO Work Phone: [facility] [place] OBGYNComment on above:Screening, , for anatomic survey ([facility]) (Primary Dx); Second trimester ([facility]); 15 weeks gestation of ([facility]); Need for maternal serum alpha-protein (MSAFP) screening ([facility])Start: 03-29-2025 End: 11-67-5325couzhmfaygJCJVV FAZIONot AvailableStart: 03-16-2025 End: 37-24-4248czkrbgftvrKXSLOZJO EBERLYNot AvailableStart: 03-01-2025 End: 65-04-5922Gwfgsh flowsheetCorey Ruiz DO Work Phone: [facility] [place] OBGYNStart: 03-01-2025 End: 39-52-6838Plburh flowsheetCorey Ruiz DO Work Phone: [facility] [place] OBGYNStart: 03-01-2025 End: 34-14-9583Ineemzzdy Result EncounterCorey Ruiz DO Work Phone: NOMS External Department UnsolicitedStart: 03-01-2025 End: 10-23-5575Lpuwdyjx flow sheetCorey Ruiz DO Work Phone: [facility] [place] OBGYNComment on above:Nausea and vomiting in ([facility]) (Primary Dx); 11 weeks gestation of ([facility]); First trimester ([facility]); H/O LEEPStart: 03-01-2025 End: 88-76-1673sqduvzrmpeUVBVE SCARLETONot AvailableStart: 02-11-2025 End: 17-14-4016orytsgyilpZWQGWWPY EBERLYNot AvailableStart: 01-28-2025 End: 39-94-4058Opykfi outpatient visit 5 minutesFazio Nurse Noms Bcp ObNOMS BCP OBComment on above:GA: 6i4vCbghj: 01-28-2025 End: 78-96-0696tlxpkoupmiKTXBRRRC EBERLYNot AvailableStart: 11-30-2024 End: 51-72-6035Fiqzdx flowsheetKassi Garcialy [employer] Work Phone: noms BCP OBStart: 11-30-2024 End: 77-76-9259Jjglus flowsheetKassi Mishra [employer] Work Phone: noms BCP OBStart: 11-30-2024 End: 99-70-5570Khigyiqrg Result EncounterKassi Mishra [employer]TER Work Phone: noms External Department UnsolicitedStart: 11-30-2024 End: 39-51-0143czxqsemygyJGGSJGPU EBERLYNot AvailableStart: 11-30-2024 End: 49-31-7071Qztnliet preventive med est patient 18-39 yrsKassi Mishra [employer]TER Work Phone: NOAM BCP OBComment on above:LGSIL of cervix of undetermined significance; HGSIL (high grade squamous intraepithelial lesion) on Pap smear of cervixStart: 07-16-2024 End: 47-31-3134oyanraenktJTC RAMEYNot AvailableStart: 07-16-2024 End: 70-66-8865Pxqzuyi encounter procedureCindy VALLEJO Work Phone: noms BCP OBComment on above:LGSIL of cervix of undetermined significance; LGSIL on Pap smear of cervix; Encounter for repeat Papanicolaou smear of cervixStart: 07-16-2024 End: 50-90-6587Zuyemw Rafia VALLEJO Work Phone: NOXJ [facility] OBStart: 07-16-2024 End: 59-46-2667Zipddv katiTaco VALLEJO Work Phone: NOGE [facility] OBStart: 07-16-2024 End: 20-56-0161Ccdvflgjs Result EncounterCindy VALLEJO Work Phone: NOMS External Department UnsolicitedStart: 03-30-2024 End: 42-01-6418Wogzji follow up visit related to original Ailsha VALLEJO Work Phone: noms [facility] OBComment on above:Postoperative examination Start: 03-30-2024 End: 90-50-9405Cgrcfb Rafia VALLEJO Work Phone: noms [facility] OBStart: 03-30-2024 End: 43-65-5509Mbukon Rafia VALLEJO Work Phone: noms [facility] OBStart: 03-13-2024 End: 71-76-9887mqnaxghsnyOpozy FaK[facility] Work Phone: Start: 03-13-2024 End: 92-55-7969Dphnauez ReferredDO Omero Ruiz Work Phone: [facility]-LAB Path Spec [place] HospStart: 12-24-2023 End: 84-34-2353tjnjwtqpltVacbp FaMount [facility]. [facility] Work Phone: Start: 12-24-2023 End: 95-08-4102Hnylgqpl ReferredCorey Ruiz Work Phone: [facility]-LAB Path Spec [place] HospStart: 12-03-2023 End: 57-27-6254xcxmmyxyjrYspkkngnb [facility] Work Phone: Start: 12-03-2023 End: 71-19-2116Opdydzh encounter procedureBlue [facility] Work Phone: Start: 11-22-2023 End: 80-00-6425kuostttwgjQenjyyqfbWestern [facility] Hospital Work Phone: Start: 11-22-2023 End: 72-03-8906Cubtgkn encounter procedureBlue Ridge Regional [facility] Work Phone: Start: 11-19-2022 End: 55-48-4066kfhoylkelfYQC JERALD .Facility: Procedures DateProcedureProcedure DetailPerforming ClinicianStart: 50-83-9514QRP CBC WITH AUTO DIFFCorey Ruiz DO Work Phone: Start: 31-13-9590Exapq dip stick/tablet rgnt non-auto w/o micrscpCorey Ruiz DO Work Phone: Start: 16-69-1241Ggpcz dip stick/tablet rgnt non-auto w/o micrscpCorey Ruiz DO Work Phone: Start: 24-53-0704Vziiq dip stick/tablet rgnt non-auto w/o micrscpCorey Ruiz DO Work Phone: Start: 94-90-6186Wkhnx dip stick/tablet rgnt non-auto w/o micrscpCorey Ruiz DO Work Phone: Start: 50-41-1143TVC DRUG SCREEN RAPID (URINE)Omero Ruiz DO Work Phone: Start: 01-28-2025 End: 67-80-8246Jofzf dip stick/tablet rgnt non-auto w/o micrscpCorey Ruiz DO Work Phone: Start: 90-63-2524Iucgp dip stick/tablet rgnt non-auto w/o micrscpKristina Danica [employer] C[employer]TER Work Phone: Start: 00-98-6589MEP,APTIMA HPV,AGE GDLNKristina Danica [employer]ATHER C[employer]TER Work Phone: Start: 70-02-6658AAE IG, APT HPV RFX 16/18,45Amy Jerald PA Work Phone: Start: 41-17-9052Nkkwg Strep (POC)Start: 11-22-2023 Quick Strep (POC) Plan of Treatment DateCare ActivityDetailAuthorStart: 12-06-2025 End: 13-75-7049Gkavxjl encounter procedureNOMS BCP OBStart: 06-23-2025 End: 59-09-4294Vniuknr encounter jjxsaefkv13/19/2025 1:50 PM EST Routine [facility]DRON [address] [facility] [id number] Omero Melchor, DO [address] [place], [place] [address] [facility] [place] OBGYNStart: 05-24-2025 End: 86-63-3748YIV panel - Blood by Automated countCBC Lab Routine Diabetes mellitus screening Expected: 05/24/2025 (Approximate), Expires: 05/24/2026[facility] Work Phone: comment on above:Expected: 05/24/2025 (Approximate), Expires: 05/24/2026Start: 05-24-2025 End: 82-09-2470Iezhhbbxbkx of glucose 1 hour after glucose challenge for glucose tolerance testGlucose tolerance, 1 hour Lab Routine Diabetes mellitus screening Expected: 05/24/2025 (Approximate), Expires: 05/24/2026[facility] CenterComment on above:Expected: 05/24/2025 (Approximate), Expires: 05/24/2026Start: 05-24-2025 End: 98-52-2954Iactbvq encounter otuvpiwnz97/20/2025 8:40 AM EDT Routine [facility] [address] [place], [id number] Omero Melchor, DO [address] [place], [place] [address] [facility]BGYNStart: 05-03-2025 End: 81-59-8175Qbgdgiejhzho / ancillary services jhmukwoabz41/29/2025 8:00 AM EDT Ancillary Procedure [facility] [address] [facility] [phone] [facility] OBGYNStart: 04-26-2025 End: 67-48-0525Exzadjz encounter procedureNOMS Mario OBGYNComment on above: ArrivedStart: 04-07-2025 End: 05-21-6274Dljnjlz encounter oqynqokjs15/03/2025 1:40 PM EDT Procedure Visit [facility] BCP OB [address] [facility] [phone] Omero Melchor, DO [address] [place] [place] [address] NOMS BCP OBStart: 04-06-2025 End: 59-09-3939Boeyhzgvqvbv / ancillary services prolrrellu72/02/2025 8:00 AM EDT Ancillary Procedure [facility] [address] [place] [address] [facility] OBGYNStart: 03-29-2025 End: 34-76-9333Jmwnt fetoprotein, maternalAlpha fetoprotein, maternal Lab Routine Need for maternal serum alpha-protein (MSAFP) screening ([facility]) Expected: 03/29/2025 (Approximate), Expires: 05/29/2025NONY [employer] Work Phone: comment on above:Expected: 03/29/2025 (Approximate), Expires: 05/29/2025Start: 03-29-2025 End: 00-28-0978PF for pregnancyUS OB 14+ weeks anatomy scan Imaging Routine Screening, , for anatomic survey ([facility]) Expected: 03/29/2025, Expires: 06/29/2025NONY [employer] Work Phone: Comment on above:Expected: 03/29/2025, Expires: 06/29/2025Start: 03-29-2025 End: 86-03-1319Dbphlxn encounter procedureNOMS [place] OBGYNComment on above: ArrivedStart: 03-16-2025 End: 25-82-5085Pwilojjzkppq / ancillary services xoeiuowziw45/12/2025 1:30 PM EDT Ancillary Procedure [facility] [address] [place] [address] [place] [address] JQJU [facility] OBGYNStart: 03-01-2025 End: 12-65-0793Bhegdqc encounter procedureNOMS BCP OBComment on above:Arrived Start: 01-28-2025 End: 01-69-6616WNQ/RhABO/Rh Lab Routine Missed menses , unspecified gestational age ([facility]) Expected: 01/28/2025 (Approximate), Expires: 01/28/2026NOMS HealthcareComment on above:Expected: 01/28/2025 (Approximate), Expires: 01/28/2026Start: 01-28-2025 End: 51-07-7506Sxchp type and Indirect antibody screen panel - BloodType and screen Lab Routine Missed menses , unspecified gestational age ([facility]) Expected: 01/28/2025 (Approximate), Expires: 01/28/2026NONY Healthcare Work Phone: comment on above:Expected: 01/28/2025 (Approximate), Expires: 01/28/2026Start: 01-28-2025 End: 20-89-2243Svnpd of abuse panel - Urine by Screen methodRapid drug screen, urine Lab Routine , unspecified gestational age ([facility]) Encounter for supervision of normal first in first trimester ([facility]) Expected: 01/28/2025 (Approximate), Expires: 01/28/2026NONY HealthcareComment on above: Expected: 01/28/2025 (Approximate), Expires: 01/28/2026Start: 11-30-2024 End: 66-96-1118Zwsjsyq encounter rdrlaurcj13/28/2025 9:00 AM EDT Office Visit [facility] [address] [facility] [address] [phone] Cindy Marques, PA [address] [place], [place] [id number] [facility] OBStart: 06-30-2024 End: 16-25-0864Xrsqgro encounter kxplzzsaa18/26/2024 10:00 AM EST Procedure Visit [facility] [address] [facility] [phone] Omero Melchor, [address] [address] [place], [place] [address] [facility] OBStart: 03-30-2024 End: 95-28-7787Qpogfjn encounter brtooepzs20/26/2024 3:40 PM EDT Office Visit [facility] [address] [facility] [phone] Cindy Marques, PA [address] [place] [address] ArrivedMERCY [facility] OBComment on above:ArrivedStart: 03-13-2024 [facility] HospitalBacteria identified in Urine by CultureUrine culture Microbiology Routine Missed menses Ordered: 01/28/2025[facility] Comment on above:Ordered: 5CBC W Auto Differential panel - BloodCBC and differential Lab Routine Missed menses , unspecified gestational age ([facility]) Ordered: 01/28/2025[facility] HealthcareComment on above:Ordered: 01/28/2025 CBC W Auto Differential panel - BloodCBC and differential Lab Routine Second trimester ([facility]) Ordered: 05/24/2025[facility] CenterComment on above:Ordered: 05/24/2025ytology Cervical or vaginal smear or scraping studyPap Smear Pathology and Cytology Routine LGSIL of cervix of undetermined significance Encounter forrepeat Papanicolaou smear of cervix Ordered: 07/16/2024[facility] Work Phone: Comment on above:Ordered: 07/16/2024ytology Cervical or vaginal smear or scraping studyPap Smear Pathology and Cytology Routine LGSIL of cervix of undetermined significance Ordered: 11/30/2024[facility] Healthcare Work Phone: comment on above:Ordered: 11/30/2024Hemoglobin A1c/Hemoglobin.total in BloodHemoglobin A1c Lab Routine Missed menses , unspecified gestational age ([facility]) Ordered: 01/28/2025[facility] HealthcareComment on above:Ordered: 01/28/2025Hepatitis B virus surface Ag [Presence] in Serum or Plasma by ImmunoassayHepatitis B surface antigen Lab Routine Missed menses , unspecified gestational age ([facility]) Ordered: 01/28/2025[facility] HealthcareComment on above:Ordered: 01/28/2025Hepatitis C virus Ab [Presence] in Serum or Plasma by ImmunoassayHepatitis C antibody Lab Routine Missed menses , unspecified gestational age ([facility]) Ordered: 01/28/2025[facility] HealthcareComment on above:Ordered: 01/28/2025HIV-1/HIV-2 antigen/antibody combination immunoassayHIV-1 and HIV-2 antibodies Lab Routine Missed menses , unspecified gestational age ([facility]) Ordered: 01/28/2025[facility] HealthcareComment on above:Ordered: 01/28/2025Reagin Ab [Presence] in Serum by RPRRPR Lab Routine Missed menses , unspecified gestational age ([facility]) Ordered: 01/28/2025[facility] HealthcareComment on above:Ordered: 01/28/2025 Rubella antibody, IgGRubella antibody, IgG Lab Routine Missed menses , unspecified gestational age ([facility]) Ordered: 01/28/2025[facility] HealthcareComment on above:Ordered: 01/28/2025 End: 06-69-8303BM Pelvis transvaginalUS OB transvaginal Imaging Routine H/O LEEP 13 weeks, 16 weeks for 2 Occurrences starting 03/01/2025 until 06/01/2025[facility] Work Phone: comment on above:13 weeks, 16 weeks for 2 Occurrences starting 03/01/2025 until 06/01/2025 Payers DatePayer CategoryPayerPolicy [id number]-[id number] Health [id number] [employer] [id number] 2023-Present [address] [place] [id number] [id number] 2.840.1.314531.3.57[id number] 2.0.1.815324.3.57[id number] 2.0.1.649740.3.57[id number] 2.16.840.1.944569.3.57[id number] 2.16840.1.976654.3.57[id number] 2.16840.1.450700.3.57[id number] 2.16840.1.464902.3.579.2.5[id number] 2.16840.1.083250.3.57[id number] 2.16840.1.613032.3.57[id number] 2..840.1.771192.3.57[id number] 2..840.1.756986.3.57[id number] 2..840.1.262867.3.57[id number] 2..840.1.280781.3.57[id number] 2.16.840.1.120019.3.579.2.[id number] Social History DateTypeDetailFacilityTobacco smoking status NHISUnknown if ever smokedMedina Hospital Work Phone: Start: 1995 End: 25-74-9968Epq [facility] Tobacco smoking status NHISTobacco smoking consumption unknownWestern [facility] Center Gender identityNot on fileWestern Missouri Mental Health CenterStart: 34-32-9306TgqstpthkEDUU HealthcareStart: 68-14-4682MgdZxzcopAUBS Healthcare Clinical Notes 03-30-2024 to 05-24-2025 Note Date & YcdbIcvgJqosavyh21-75-6932 History of Present illness Narrative* Keri Canada, ANTONIO - 05/24/2025 8:40 AM EDT Reason for [...] nursing note reviewed. Exam conducted with a carton liner present. Vitals: Estimated body mass index is 29.73 kg/m as calculated from the following: Height as of 12/24/23: 5' 7 . Weight as of this encounter: 189 lb 12.8 oz. BP: 110/78 Patient's last menstrual period was 12/02/2024. Assessment/Plan ICD-10-CM 1. Second trimester ([facility]) Z34.92 CBC and differential 2. 23 weeks gestation of ([facility]) Z3A.23 POCT urinalysis dipstick manually resulted [...] by Keri Canada LPN on behalf of: Omero Melchor DO documented in this encounterWestern Missouri Mental Health CenterCmjxikulyj66-12-6012 History of Present illness Narrative* Chayo Flowers, MA - 04/26/2025 3:40 PM EDT Reason for Appointment: Patient ID: Mervat [...] nursing note reviewed. Exam conducted with a carton liner present. Vitals: Estimated body mass index is 28.51 kg/m as calculated from the following: Height as of 12/24/23: 5' 7 . Weight as of this encounter: 182 lb. BP: 124/78 Patient's last menstrual period was 12/02/2024. ASSESSMENT & PLAN ICD-10-CM 1. Second trimester ([facility]) Z34.92 POCT urinalysis dipstick manually resulted 2. 19 weeks gestation of ([facility]) Z3A.19 Return OB: Patient presents today for a routine obstetrics appointment. Patient is currently 19w3d . Patient states she is doing well but has complaints of being tired due to current . Patient has verbalizes frequent movement. labor precautions was discussed/given and patient was instructed to perform kick counts three times a day. Patient will have CX's done next month and Anatomy scan will be done next week. Orders Placed This Encounter Procedures POCT urinalysis dipstick manually resulted Follow Up: Patient is to return to office in 4 week for routine OB appointment. Documented by Chayo Flowers MA on behalf of: Omero Melchor DO documented in this [facility]09-22-2025 Miscellaneous Notes* Addendum Note - Omero Melchor DO - 04/26/2025 3:40 PM EDTAddended by: OMERO MELCHOR on: 04/27/2025 12:23 PM Modules accepted: Level of Service documented in this [facility]09-22-2025 Note* Addendum Note - Omero Melchor DO - 04/26/2025 3:40 PM EDTAddended by: OMERO MELCHOR on: 04/27/2025 12:23 PM Modules accepted: Level of Service [facility] Work Phone: 1(721) 564-647809-22-2025 Note* Addendum Note - Omero Melchor DO - 04/26/2025 3:40 PM EDTAddended by: OMERO MELCHOR on: 04/27/2025 12:23 PM Modules accepted: Level of Service [facility] Healthcare Work Phone: 1(122) 534-558208-25-2025 History of Present illness Narrative* Kassi Mishra, DIO - 03/29/2025 1:40 PM EDT Reason for Appointment: Patient ID: Mervat [...] nursing note reviewed. Exam conducted with a carton liner present. Vitals: Estimated body mass index is 27.41 kg/m as calculated from the following: Height as of 12/24/23: 5' 7 . Weight as of this encounter: 175 lb. BP: 122/76 Patient's last menstrual period was 12/02/2024. ASSESSMENT & PLAN ICD-10-CM 1. Second trimester ([facility]) Z34.92 POCT urinalysis dipstick manually resulted 2. 15 weeks gestation of ([facility]) Z3A.15 3. Need for maternal serum alpha-protein (MSAFP) screening ([facility]) Z36.1 Alpha fetoprotein, maternal Alpha fetoprotein, maternal Return OB: Patient presents today for a routine obstetrics appointment. Patient is currently 15w3d . Patient states she is doing well but has complaints of being tired due to current . Patient has verbalizes frequent movement. labor precautions was discussed/given and patient was instructed to perform kick counts three times a day. Orders Placed This Encounter Procedures Alpha fetoprotein, maternal POCT urinalysis dipstick manually resulted Follow Up: Patient is to return to office in 4 week for routine OB appointment. Documented by Kassi Mishra NP on behalf of: Omero Melchor DO documented in this encounterWestern Missouri Mental Health [id number] History of Present illness Narrative* Kassi Mishra NP - 03/01/2025 1:20 PM EDT Reason for Appointment: Patient ID: Mervat [...] nursing note reviewed. Exam conducted with a carton liner present. Vitals: Estimated body mass index is 26.63 kg/m as calculated from the following: Height as of 12/24/23: 5' 7 . Weight as of this encounter: 170 lb. BP: 122/78 Patient's last menstrual period was 12/02/2024. ASSESSMENT & PLAN (Z3A.11) 11 weeks gestation of ([facility]) Plan: POCT urinalysis dipstick manually resulted (Z34.91) First trimester ([facility]) (Z98.890) H/O LEEP Return OB: Patient [...] by Kassi Mishra NP on behalf of: Omero Melchor DO documented in this encounterWestern Missouri Mental Health [id number] History of Present illness Narrative* Joana Wolf MA - 01/28/2025 1:00 PM EDT Reason for Appointment: Patient ID: Mervat [...] dipstick manually resulted , unspecified gestational age ([facility]) - Type and screen; Future - ABO/Rh; Future - CBC and differential - Hemoglobin A1c - RPR - Rubella antibody, IgG - Hepatitis B surface antigen - Hepatitis C antibody - HIV-1 and HIV-2 antibodies - Rapid drug screen, urine; Future Encounter for supervision of normal first in first trimester ([facility]) - Rapid drug screen, urine; Future Nurse Note: OB Intake: Patient presents today for first OB visit. Patients history has been reviewed in great detail including any potential risks. Patient signed consent forms and patient desires testing in both trimesters. Patient currently has no complaints and has been advised to drink 6-8 glasses of water a day, eatno raw or undercooked meat, and [facility] Patient has also been advised to not change litter boxes and eat 6 small meals a day. Patient has been consulted regarding the do's and don'ts ofpregnancy. Patient was given labs and all questions and concerns were answered. Follow Up: Patient is to have labs drawn at directed and return to office for initial OB appointment with provider. Patient may call office as needed with any concerns or questions. Nurse Visit Completed by: Joana Wolf MA documented in this encounterWestern Missouri Mental Health [id number] History of Present illness Narrative* Tracy Silva LPN - 11/30/2024 9:00 AM EDT Reason for Appointment: Patient ID: [...] nursing note reviewed. Exam conducted with a carton liner present. Vitals: Estimated body mass index is [...] of: Kassi Mishra NP documented in this encounterWestern Missouri Mental Health [id number] History of Present illness Narrative* YONI Magdaleno - 07/16/2024 3:30 PM EST Reason for Appointment: Patient ID: Mervat Mendez [...] behalf of: YONI Magdaleno documented in this encounterWestern Missouri Mental Health [id number] History of Present illness Narrative* YONI Magdaleno - 03/30/2024 3:40 PM EDT Reason for Appointment: Patient ID: Mervat [...] behalf of: YONI Magdaleno documented in this encounterNONY HealthcareEvaluation note* Diagnosis Onset Date Resolution Status Strep pharyngitis noneactive [facility] Work Phone: Evaluation noteNo assessment information available [facility] Work Phone: Evaluation note* Diagnosis [...] Diagnosis Missed menses , unspecified gestational age ([facility]) Encounter for supervision of normal first in first trimester ([facility]) [facility] Diagnosis Nausea and vomiting in ([facility])- Primary Unspecified vomiting of , unspecified as to episode of care 11 weeks gestation of ([facility]) First trimester ([facility]) state, incidental H/O LEEP documented [facility] this encounter [facility]* Diagnosis Screening, , for anatomic survey ([facility])- Primary Encounter for anatomic survey Second trimester ([facility]) state, incidental 15 weeks gestation of ([facility]) Need for maternal serum alpha-protein (MSAFP) screening ([facility]) documented [facility]* Diagnosis Second trimester ([facility]) state, incidental 19 weeks gestation of ([facility]) [facility]* Diagnosis Second trimester ([facility]) state, incidental 23 weeks gestation of ([facility]) Diabetes mellitus screening Screening for diabetes mellitus documented in this encounter [facility] Summary Purpose Family History No Family History Records FoundNo Family History Records FoundNo Family History Records FoundNo Family History Records Found Advance Directives Advance Directive Response Recorded Date/ Time Advance Directives No November 21 024 9:04am Chief Complaint and Reason for Visit Chief Complaint sore throat, fever Reason for Visit Strep pharyngitis Chief Complaint sore throat, fever sore throatReason for VisitStrep pharyngitis Chief Complaint Unknown Chief Complaint Unknown Unknown Additional Source Comments INFORMATION SOURCE (unrecogn ized section and content) DATE CREATED AUTHOR 11/28/2022 [facility] DATE CREATED AUTHOR AUTHOR'S ORGANIZ ATION 03/20/2024 [facility] DATE CREATED AUTHOR AUTHOR'S ORGANIZ ATION 03/24/2024 [facility] DATE CREATED AUTHOR AUTHOR'S ORGANIZ ATION 05/24/2025 [facility] EPIC Care Teams (unrecognized sec tion and content) Team Status: Active Member Role Status Dates PHYSICIAN NO FAMILY Primary Care Provider Active Team Status: Inactive Member Role Status Dates Farrah Olivo APRN Attending Provider Active Sta rt: November 22, 2023 End: November 21HYSICIAN NO FAMILYPrimary Care ProviderActiveStart: November 22, 2023 End: November 22, 2023 Team Status: Inactive Member Role Status Dates PHYSICIAN NO FAMILY Primary Care Provider Active Start: December 03, 2023 End: December 02Jose Parikh ProviderActiveStart: December 03, 2023 End: December 03, 2023 Team Status: Inactive Member Role Status Dates Omero Melchor Attending Provider Active Start: Danita 2023 End: December 24, 2023 Team Status: Inactive Member Role Status Dates Omero Melchor DO Attending Provider Active Start : December 24, 2023 End: December 24, 2023 Team Status: Inactive Member Role Status Dates Omero Melchor DO Attending Provider Active Start : March 13, 2024 End: March 13, 2024Team MemberRelationshipSpecialtyStart DateEnd Date Shaun Florez MD [address] [facility] [place] [address] PCP - GeneralFamily Medicine11/25/23Team MemberRelationshipSpecialtyStart DateEnd Date Shaun Florez MD [address] [facility] [place] [address] PCP - GeneralFamily Medicine11/25/23Team MemberRelationshipSpecialtyStart DateEnd Date Shaun Florez MD [address] [facility] [place] [address] PCP - GeneralFamily Medicine11/25/23Team MemberRelationshipSpecialtyStart DateEnd Date Shaun Florez MD [address] [facility] [place] [address] PCP - GeneralFamily Medicine11/25/23Team MemberRelationshipSpecialtyStart DateEnd Date Shaun Florez MD [address] [facility] [place] [address] PCP - GeneralFamily Medicine11/25/23Team MemberRelationshipSpecialtyStart DateEnd Date Shaun Florez MD [address] [facility] [place] [address] PCP - GeneralFamily Medicine11/25/23Team MemberRelationshipSpecialtyStart DateEnd Date Shaun Florez MD [address] [facility] [place] [address] PCP - GeneralFamily Medicine11/25/23Team MemberRelationshipSpecialtyStart DateEnd Date Shaun Florez MD [address] [facility] [place] [address] PCP - GeneralFamily Medicine11/25/23Team MemberRelationshipSpecialtyStart DateEnd Date Shaun Florez MD [address] [facility] [place] [address] PCP - GeneralFamily Medicine11/25/23Team MemberRelationshipSpecialtyStart DateEnd Date Shaun Florez MD [address] [facility] [place] [address] PCP - GeneralFamily Medicine11/25/23Team MemberRelationshipSpecialtyStart DateEnd Date Shaun Florez MD [address] [facility] [place] [address] PCP - GeneralFamily Medicine11/25/23Team MemberRelationshipSpecialtyStart DateEnd Date Shaun Florez MD [address] [facility] [place] [address] PCP - GeneralFamily Medicine11/25/23Team MemberRelationshipSpecialtyStart DateEnd Date Shaun Florez MD [address] [facility] [place] [address] PCP - GeneralFamily Medicine11/25/23 Goals (unrecognized section and content) Goals may be documented in a n alternate sectionGoals may be documented in an alternate sectionGoals may be documented in an alternate sectionGoals may be documented in an alternate section Reason for Visit (unrecogniz ed section and content) ReasonCommentsWell Women VisitReasonCommentsPost-op VisitReasonCommentsAbnormal Pap SmearReasonCommentsAmenorrheaReasonCommentsRoutine Visit FOR RECORDS PERTAINING TO PATIENTS WHO [...] BE BASED ON THE PRIMARY CLINICAL RECORDS. [employer] provides no warranty or guarantee of the accuracy or completeness of information in this document.
--- OUTSIDE RECORDS SUMMARY | 2025-06-19 08:03 | XMS_ITS | Clinical Summary ---
Author Organization [facility] Address [address] [place] [address] Care Team Providers Care Cable Installer Name Role Phone Shaun Florez MD Primary Care Provider [phone] Allergies No known active allergies Medications MedicationSigDispense QuantityRefillsLast FilledStart DateEnd DateStatus MV-Min-Fe Fum-FA-DHA ( 1 PO) Take by mouthActive ondansetron (Zofran) 4 MG tablet Indications:Nausea and vomiting in ([facility])Take 1 tablet (4 mg) by mouth every 6 (six) hours if needed for nausea or vomiting for up to 30 doses Take 1 tablet by mouth every 6 hours as needed for nausea. 30 tablet 5Active Encounters DateTypeDepartmentCare QqkdKpxcigwdtjh83/04/2025[place] [address] Ha Melchor DO 5Clinisync Result Encounter [facility] External Department Unsolicited Ha Melchor DO 05/24/2025 8:40 [place] [address] Ha Melchor DO Second trimester ([facility]); 23 weeks gestation of ([facility]); Diabetes mellitus dlxydukxj75/20/2025 8:00 AM EDTAncillary [place] [address] Encounter for follow-up ultrasound of anatomy ([facility])05/03/2025 8:00 AM EDTAncillary [place] [address] Screening, , for anatomic survey ([facility])04/26/2025 3:40 [place] [address] Ha Melchor DO Second trimester ([facility]); 19 weeks gestation of ([facility])04/26/2025amboo [place] [address] Ha Melchor DO 04/06/2025 8:00 AM EDTAncillary [place] [address] H/O LEEP03/29/2025 1:40 [place] [address] Ha Melchor DO Screening, , for anatomic survey ([facility]) (Primary Dx); Second trimester ([facility]); 15 weeks gestation of ([facility]); Need for maternal serum alpha-protein (MSAFP) screening ([facility])03/29/2025 [place] [address] Ha Melchor DO 03/26/2025[place] [address] [phone] Ha Melchor DO from Last 3 Months Social History Tobacco UseTypesPacks/DayYears UsedDateSmoking Tobacco: Never Assessed Estimated Date of DgfqryrxYgapuzcmZrx14/13/2026ased on UltrasoundSex and Gender InformationValueDate RecordedSex Assigned at TbmjnCnjcyo25/17/2024 10:16 AM EDT Legal RqzFxitmt76/15/2023 8:01 PM EDTGender IdentityNot on fileSexual OrientationNot on file Last Filed Vital Signs Vital SignReadingTime TakenCommentsBlood Zpdseggx817/7805/24/2025 8:55 AM EDT Pulse--Temperature--Respiratory Rate--Oxygen Saturation--Inhaled Oxygen Concentration--Esocpy39.1 kg (189 lb 12.8 oz)05/24/2025 8:55 AM CHQLehagu513.2 cm (5' 7 )12/24/2023 2:50 PM EDTBody Mass Index29.7312/24/2023 2:50 PM EDT Plan of Treatment DateTypeDepartmentCare Team (Latest Contact Info)Jiixubjcinq54/19/2025 1:50 PM ESTRoutine [facility] ALEJANDRON [address] [place] [address] [place] [phone] Ha Melchor, [address] [place] [address] 12/06/2025 11:00 AM EDTOffice Visit [facility] [address] [place] [address] [place] [phone] Ha Melchor, [address] [place] [address] Procedures Procedure NamePriorityDate/TimeAssociated DiagnosisCommentsGLUCOSE 1 HOURRoutine 06/07/2025 10:28 AM EST ALL CBC WITH AUTO DEUEHinrmik75/03/2025 10:28 AM EST POCT URINALYSIS KHFDZJOPUbdpxwk01/20/2025 9:03 AM EDT 23 weeks gestation of ([facility]) US OB LIMITED 1+ CXGUEISDnxhwdi70/20/2025 8:38 AM EDT Encounter for follow-up ultrasound of anatomy ([facility]) US OB 14+ WEEKS ANATOMY VFHXZvtdzqp25/29/2025 9:07 AM EDT Screening, , for anatomic survey ([facility]) POCT URINALYSIS YUVLLKLKUqrhmph45/22/2025 4:06 PM EDT Second trimester ([facility]) US OB PSKREMWVBPCYLuayjrc19/02/2025 8:34 AM EDT H/O LEEP POCT URINALYSIS ADBFWLCSToczhzw54/25/2025 2:12 PM EDT Second trimester ([facility]) CULTURE, URINE, YNLYHUKJpsmnfo60/21/2025 2:04 PM EDT Missed menses from Last 3 Months Results * (ABNORMAL) GLUCOSE 1 HOUR (06/07/2025 10:28 AM EST)ComponentValueRef RangeTest MethodAnalysis TimePerformed AtPathologist SignatureGLUCOSE 1 KRNK450(H)<130 mg/dLTBHSpecimen (Source)Anatomical Location / LateralityCollection Method / VolumeCollection TimeReceived Time06/07/2025 10:28 AM EST06/07/2025 10:30 AM EST Narrative [facility] - 06/07/2025 10:57 AM EST Authorizing ProviderResult TypeResult StatusCorey Ruiz DOL BLOOD ORDERABLES Final ResultPerforming OrganizationAddressCity/State/ZIP CodePhone Number [facility] * (ABNORMAL) ALL CBC WITH AUTO DIFF (06/07/2025 10:28 AM EST)ComponentValueRef RangeTest MethodAnalysis TimePerformed AtPathologist SignatureTBH WBC8.84.0 - 11.0 10 3/uLTBHTBH RBC4.324.20 - 5.40 10 6/uLTBHTBH HGB13.212.0 - 16.0 g/dLTBH TBH HCT39.736.0 - 48.0 %TBHTBH MCV91.981.0 - 99.0 fLTBHTBH MCH30.626.7 - 34.0 pgTBHTBH MCHC33.229.9 - 35.2 g/dLTBHTBH RDW12.511.0 - 15.0 %TBHTBH ZGN409872 - 450 10 3/uLTBHTBH MPV9.4(L)9.5 - 13.5 [...] Ruiz DOCLINISYNCFinal Result Performing OrganizationAddressCity/State/ZIP CodePhone Number * (ABNORMAL) POCT urinalysis dipstick manually resulted (05/24/2025 9:03 AM EDT) Only the most recent of3 resultswithin the time period is included. ComponentValueRef RangeTest MethodAnalysis TimePerformed AtPathologist Signature Color, UAYellowClarity, UAClearGlucose, UANegativeNegative - 2000(110) ++++ mg/dLBilirubin, UANegativeNegative - 4(70) +++ mg/dLKetones, UANegativeNegative - 160(16) ++++ mg/dLSpec Grav, UA1.0101 - 1.03Blood, UANegativeNegative - 50 Onel/mcLpH, UA7.05 - 9Protein, UANegativeNegative - 1999(20) ++++ mg/dL Urobilinogen, UA2.00.2 - 12 mg/dLLeukocytes, UA2+Negative - 500+++ Virgen/mcL Nitrite, UANegativeNegative - PositiveSpecimen (Source)Anatomical Location / LateralityCollection Method / VolumeCollection TimeReceived LjctOvmix39/20/2025 9:03 AM EDT Narrative Authorizing ProviderResult TypeResult StatusCorey Uriz DOPOINT OF CARE TEST ENTER/EDIT ORDERABLESFinal Result [...] Kaur MD Authorizing ProviderResult TypeResult StatusKassi Mishra NPJayesh OB US PROCEDURESFinal Result * US OB transvaginal (04/06/2025 8:34 AM EDT)Anatomical RegionLateralityModality BodyUltrasoundSpecimen (Source)Anatomical Location / LateralityCollection Method / VolumeCollection TimeReceived Time04/06/2025 11:44 AM EDT Impressions 04/06/2025 12:02 PM EDT 1. Closed cervix, 5.9 cm length 2. Viable intrauterine TRANSCRIBED BY: ? ELECTRONICALLY SIGNED BY: Luca Kaur MD Narrative 04/06/2025 12:02 PM EDT FINDINGS: Single viable intrauterine with normal cardiac activity, 130 bpm. Closed cervix, 5.9 cm length. Procedure Note Luca Kaur MD - 04/06/2025 FINDINGS: Single viable intrauterine with normal cardiac activity, 130bpm. Closed cervix, 5.9 cm length. IMPRESSION: 1. Closed cervix, 5.9 cm length 2. Viable intrauterine TRANSCRIBED BY: ELECTRONICALLY SIGNED BY: Luca Kaur MD Authorizing ProviderResult TypeResult Cecelia Mishra NPVIOLET OB US PROCEDURESFinal Result * Urine culture (03/25/2025 2:04 PM EDT)Specimen (Source)Anatomical Location / LateralityCollection Method / VolumeCollection TimeReceived TimeUrineUrine specimen obtained by clean catch procedure / Unknown Narrative Authorizing ProviderResult TypeResult StatusCoreeulalio TORRES MICROBIOLOGY - GENERAL ORDERABLESFinal ResultPerforming OrganizationAddressCity/State/ZIP Code Phone Number EXTERNAL LAB from Last 3 Months Insurance Care Teams Team MemberRelationshipSpecialtyStart DateEnd Shaun Florez MD [address] [place] [address] PCP - GeneralFamily Medicine11/25/23
--- OUTSIDE RECORDS SUMMARY | 2025-06-19 08:03 | XMS_ITS | Encounter Summary ---
Author Organization [facility] Address [address] [place] [address] Care Team Providers Care Material Combiner Name Role Phone Shaun Florez MD Primary Care Provider [phone] Encounter Details DateTypeDepartmentCare Team (Latest Contact Info)Psiiliphxve19/04/2025Telephone [facility] [address] [place], [phone] Ha Melchor DO [address] [place] [address] Social History Tobacco UseTypesPacks/DayYears UsedDateSmoking Tobacco: Never Assessed Estimated Date of RntipmkpFtosapydDgn30/13/2026ased on UltrasoundSex and Gender InformationValueDate RecordedSex Assigned at NqnxoOigzlm60/17/2024 10:16 AM EDT Legal TrnMvswmm11/15/2023 8:01 PM EDTGender IdentityNot on fileSexual OrientationNot on filedocumented as of this encounter Miscellaneous Notes * Telephone Encounter - Tracy Silva LPN - 06/08/2025 8:22 AM EST Patient was called and made aware of results and that we will be sending the 3 hour over for her and that she can call pre-register and schedule this and that she will need to plan on being there fora while. Patient states she will do at next appointment. Orders sent at this time. No further questions. documented in this encounter Plan of Treatment DateTypeDepartmentCare Team (Latest Contact Info)Qucpzulneud60/19/2025 1:50 PM ESTRoutine [facility] [address] [place] [address] [place] [address] Ha Melchor, DO [address] [place] [address] 12/06/2025 11:00 AM EDTOffice Visit [facility] [address] [place] [address] [place] [phone] Ha Melchor, DO [address] [place] [address] NameTypePriorityAssociated DiagnosesOrder ScheduleGlucose tolerance, 3 hoursLab Routine Elevated glucose tolerance test Expected: 06/08/2025 (Approximate), Expires: 06/08/2026documented as of this encounter Visit Diagnoses Diagnosis Elevated glucose tolerance test Impaired glucose tolerance test documented in this encounter Care Teams Team MemberRelationshipSpecialtyStart DateEnd Shaun Florez MD [address] [facility] [place] [address] PCP - GeneralFamily Medicine11/25/23documented as of this encounter
[2025-06-19 09:50] LABS: Glucose 1 Hour 145 mg/dL (<180)
[2025-06-19 12:01] LABS: Glucose 3 Hour 50 mg/dL (<140)
[2025-06-19 13:02] LABS: Glucose 2 Hour 102 mg/dL (<155)
== END 2025-06-19 08:00 | disposition home or self-care (01) ==
LOC: LAB 07:59
PROVIDERS: PCP Family Medicine; Visit Provider Obstetrics & Gynecology
DX: R73.09 Other abnormal glucose (principal)
CPT/HCPCS: 36415; 82951; 82952